=== PATIENT | male | born 1975 | race Caucasian/White ===

== ENCOUNTER 2017-02-22 11:26 | Day surgery (SDC) | payer OTHER ==
[2017-02-14 08:14] VITALS: BMI 46.0
--- NOTE | 2017-02-14 08:55 | PAT Medication Instructions ---
Service Date Feb 14, 2017. Current Home Medication List Acetaminophen (Tylenol), 500 MG PO Q6 PRN for Pain Aspirin (Aspirin Ec), 81 MG PO QAM Furosemide (Lasix), 40 MG PO EVERY OTHER DAY Glipizide (Glucotrol), 5 MG PO BID Ketorolac (Toradol), 10 MG PO BID PRN for HEADACHES Lisinopril (Zestril), 10 MG PO QAM Metformin Hcl (Glucophage), 1,000 MG PO BID Metoprolol Succinate (Toprol Xl), 50 MG PO QAM Potassium Chloride (Klor-Con M20), 20 MEQ PO BID Medication Instructions For Your Scheduled Surgery - Hold the following medications 48 hours prior to surgery: Metformin Hcl (Glucophage), 1,000 MG PO BID - Hold the following medications the morning of surgery: Lisinopril (Zestril), 10 MG PO QAM Glipizide (Glucotrol), 5 MG PO BID Furosemide (Lasix), 40 MG PO EVERY OTHER DAY Potassium Chloride (Klor-Con M20), 20 MEQ PO BID - Take the following medications the morning of surgery with a sip of water OTHERWISE NOTHING TO EAT OR DRINK AFTER MIDNIGHT: Metoprolol Succinate (Toprol Xl), 50 MG PO QAM Ketorolac (Toradol), 10 MG PO BID PRN for HEADACHES (may take if needed up to 4 hours prior to surgery) Acetaminophen (Tylenol), 500 MG PO Q6 PRN for Pain (may take if needed up to 4 hours prior to surgery) Aspirin (Aspirin Ec), 81 MG PO QAM (okay to continue per surgeon) - Take the following medications as scheduled the night before surgery: Glipizide (Glucotrol), 5 MG PO BID Potassium Chloride (Klor-Con M20), 20 MEQ PO BID Ketorolac (Toradol), 10 MG PO BID PRN for HEADACHES Acetaminophen (Tylenol), 500 MG PO Q6 PRN for Pain If you have any questions please call us at [phone] or [phone] or [phone]
[~2017-02-22] VITALS: Ht 172.7 cm; Wt 136.6 kg
[~2017-02-22 11:26] MED LIST: ACET-1256 PO; ASPI81TA28 PO; CEFAZOLIN 3000 MG/65 ML D5W IV SCH; FRS/40 PO; GLIP5TAB3 PO; KETO10TA PO; LACTATED RINGER'S 1000ML 1,000 ML IV SCH; LISI-461 PO; MCRK20 PO; METF-384 PO; METO-217 PO
[2017-02-22 11:50] VITALS: BP 131/90; PULSE 87; TEMP 36.8; O2SAT 95; Ht 172.7 cm; Wt 136.6 kg
[2017-02-22] MEDS ORDERED: LIDOCAINE HCL 1% 20 ML VIAL ONE (12:13)
[2017-02-22] MEDS ORDERED: BACITRACIN OINT 15 GM TUBE ONE (12:14)
[2017-02-22] MEDS ORDERED: BUPIVACAINE 0.5 % 5 MG/1 ML MPF 30ML VIAL ONE (12:14)
[2017-02-22] MEDS ORDERED: DEXAMETHASONE SOD INJ 4 MG/ML VIAL ONE (12:18)
[2017-02-22] MEDS ORDERED: LIDOCAINE HCL 2% 2 ML VIAL (20MG/ML) ONE (12:18)
[2017-02-22] MEDS ORDERED: NEOSTIGMINE METHYLSULFATE 5 MG/5 ML SYR ONE (12:18)
[2017-02-22] MEDS ORDERED: MIDAZOLAM HCL 1 MG/ML 2ML VIAL ONE (12:18)
[2017-02-22] MEDS ORDERED: FENTANYL CITRATE INJ 50 MCG/1 ML 2 ML VIAL ONE ×2 (12:18→14:36)
[2017-02-22] MEDS ORDERED: ROCURONIUM BROMIDE 10 MG/ML 5 ML VIAL ONE ×2 (12:18→13:12)
[2017-02-22] MEDS ORDERED: GLYCOPYRROLATE INJ 0.2 MG/ML VIAL ONE (12:18)
[2017-02-22] MEDS ORDERED: ONDANSETRON INJ 2 MG/ML 2 ML VIAL ONE (12:18)
[2017-02-22] MEDS ORDERED: PROPOFOL IV EMULSION 10 MG/ML 20 ML VIAL IV ONE (12:18)
--- NOTE | 2017-02-22 12:23 | History & Physical Bridge Note ---
H&P Re-Evaluation Bridge Note: I have examined the patient, reviewed the History & Physical and in the interval since the performance of the History & Physical I have noted the following changes of clinical significance: No changes noted
[2017-02-22] MEDS ORDERED: METOPROLOL TARTRATE 50 MG TAB PO SCH (12:30)
[2017-02-22] MEDS ORDERED: ONDANSETRON INJ 2 MG/ML 2 ML VIAL IV PRN ×2 (12:45→15:45)
[2017-02-22] MEDS ORDERED: ATROPINE SULFATE 0.1 MG/ML 5ML SYR IV PRN (12:45)
[2017-02-22] MEDS ORDERED: EpHEDrine SULFATE INJ 50 MG/ML AMP IV PRN (12:45)
[2017-02-22] MEDS ORDERED: KETOROLAC TROMETHAMINE 30 MG/ML VIAL ONE (14:51)
[2017-02-22] MEDS ORDERED: PHENYLEPHRINE 100MCG/ML 5ML SYR ONE (14:51)
[2017-02-22] MEDS ORDERED: D5W AND 1/2NSS + 20MEQ KCL 1,000 ML IV SCH (15:39)
--- NOTE | 2017-02-22 15:39 | [facility] Post Operative Brief Note ---
Immediate Operative Summary Operative Date Feb 22, 2017. Pre-Operative Diagnosis chronic cholecystitis, cholelithiasis, umbilical hernia Post-Operative Diagnosis chronic cholecystitis, cholelithiasis, incarcerated umbilical hernia Procedure(s) Performed laparoscopic cholecystectomy, primary repair umbilical hernia Surgeon DR Franklin Hall Drilling Manager Surgeon(s) surgical technician Estimated Blood Loss 30 cc Findings chronic cholecystitis, incarcerated umbilical hernia Specimens A: Gallbladder Drains none Anesthesia generalo Complication(s) None Disposition Recovery Room / PACU
[2017-02-22] MEDS ORDERED: OXYC-57 PO (15:43)
[2017-02-22] MEDS ORDERED: OXYCODONE/ACETAMINOPHEN 5-325 TAB PO PRN (15:45)
[2017-02-22] MEDS ORDERED: HYDROmorphone INJ 1 MG/ML SYR IV PRN (15:45)
[2017-02-22] MEDS: FENTANYL CITRATE INJ 50 MCG/1 ML 2 ML VIAL IV PRN ×4 (15:47→16:15)
--- NOTE | 2017-02-22 15:47 | Discharge Instructions ---
Discharge Instructions Date of Service Feb 22, 2017. Visit Reason for Visit: Gallstone, Umbilical Hernia Discharge Discharge Diagnosis / Problem: S/P laparoscopic cholecystectomy, open repair umbilical hernia Discharge Goals Goal(s): Decrease discomfort, Improve function Activity Recommendations Activity Limitations: per Instructions/Follow-up section Lifting Limitations: no more than 25 pounds Exercise/Sports Limitations: gradually increase as tolerated May Resume Sexual Activity: when tolerated Shower/Bathe: may shower/bathe in 3 days Driving or Machine Use: resume 3 days after discharge Anesthesia . Post Anesthesia Instructions: If you have had General Anesthesia or IV Sedation: * Do not drive today. * Resume driving when surgeon permits. * Do not make important decisions or sign legal documents today. * Call surgeon for: 1. Temperature elevations greater than 101 degrees F. 2. Uncontrollable pain. 3. Excessive bleeding. 4. Persistent nausea and vomiting. 5. Medication intolerance (nausea, vomiting or rash). * For nausea and vomiting use only clear liquids such as: tea, soda, bouillon until nausea subsides, then gradually increase diet as tolerated. * If you have any concerns or questions, call your surgeon's office. If physician is unavailable and it is an emergency, call 911 or go to the nearest emergency room. . Instructions / Follow-Up Instructions / Follow-Up keep all dressing for 4 days, he can take a shower on 02/26/2017, no driving while taking pain medicine. Follow up 1 week, Diet Recommendations Recommended Home Diet: resume previous diet Procedures Procedures Performed: laparoscopic cholecystectomy, primary repair umbilical hernia Pending Studies Studies pending at discharge: no Medical Emergencies . Who to Call and When: Medical Emergencies: If at any time you feel your situation is an emergency, please call 911 immediately. . Non-Emergent Contact Non-Emergency issues call your: Surgeon Call Non-Emergent contact if: you have a fever, temperature is above 100.5, your pain is not controlled, your pain is worsening, wound has increased drainage, wound has increased redness . . "Provider Documentation" section prepared by Franklin Hall.
--- NOTE | 2017-02-22 16:37 | OPERATIVE REPORT ---
DATE OF OPERATION: 02/22/2017 PREOPERATIVE DIAGNOSES: Chronic cholecystitis, cholelithiasis and umbilical hernia. POSTOPERATIVE DIAGNOSES: Chronic cholecystitis, cholelithiasis and incarcerated umbilical hernia. OPERATION: Laparoscopic cholecystectomy, open repair of umbilical hernia. SURGEON: Franklin Hall M.D. HYDROGEN POWER PLANT ENGINEER: civil geotechnical engineer. FINDINGS: Chronic cholecystitis, incarcerated umbilical hernia. COMPLICATIONS: None. IV FLUIDS: 1700. ESTIMATED BLOOD LOSS: About 30 mL. COMPLICATIONS: None. INDICATIONS FOR THE PROCEDURE: This is a 41-year-old gentleman who presented with symptomatic cholelithiasis and symptomatic umbilical hernia. The patient will be required to do laparoscopic cholecystectomy and open repair of umbilical hernia, possible mesh. I did talk to the patient and patient's father about the benefit and risk alternate procedure. I indicated the risks may include but not limited such as bleeding, infection, injury to common bile duct, injury to bowel, may need ERCP, myocardial infarction, DVT, stroke and even , hernia recurrence, may need more procedure, they understands and they signed informed consent and I answered all questions. DETAILS OF PROCEDURE: We brought the patient to the OR, put the patient in the supine position. The patient received SCDs on bilateral legs to prevent DVT. Also, the patient received 2 grams Ancef IV for prophylactic antibiotic. The patient received general anesthesia without difficulty. The abdomen was prepped and draped in routine sterile fashion. After a timeout, I injected local anesthesia just above umbilical by using 1% lidocaine mixed with 0.25% Marcaine, then I made a transverse incision just above umbilical, opened fascia and opened peritoneum under direct vision. I put a Kaylah trocar in, connected to CO2 to create pneumoperitoneum. Flow rate is 6 liters per minute. Pressure not more than 14 mmHg. Once we got a nice pneumoperitoneum, we put a 10 mm camera in, looked around the abdomen, shows no more findings on the stomach; small bowel, large bowel and omental coverings of the gallbladder showing chronic cholecystitis, gallbladder wall had a thickening edema. Also, the patient had umbilical hernia. Then, we put another 3.5 mm trocar on the right upper quadrant. Once all trocars in, I put grasper in to hold the base of the gallbladder, put direction to the diaphragm and then we used another grasper to peel out all the omentum covers the gallbladder. Again chronic cholecystitis with gallbladder wall thickening, edema and then we put another grasper to hold the pouch over the gallbladder, put direction to the latter exposing triangle of Calot. The cystic duct was identified and mobilized then I put two 5 mm metal clips on both proximal cystic duct, one on the distal cystic duct and then used a scissor for transection of the cystic duct. Then the cystic artery was identified and mobilized. I put two 5 mm metal clips on the proximal cystic artery and one on the distal cystic artery. Then I used a scissors to transect the cystic artery. Rechecked, no active bleeding, no bile leak. Then I used Bovie to take down the gallbladder from the liver bed without difficulty. Rechecked, no active bleeding, no leak, and now we used the same umbilical incision and mobilized the umbilical hernia. Then we removed the gallbladder through the catch bag and then we reinserted Kaylah trocar in, connected to CO2 to create pneumoperitoneum. Again rechecked, no active bleeding, no bile leak from the liver bed and removed all trocars under direct vision. No active bleeding from trocar sites. At this moment, we removed all trocars. Pneumoperitoneum was released. Then I mobilized umbilical hernia showing incarcerated umbilical hernia and then we completely reduced the hernia sac back to the abdominal cavity, showing the hernia sac was about 2 x 2 cm. Then I used #1 Ethibond [id number] x3 to close the umbilical hernia. Rechecked and no more hernia and also we closed the incision, fascial layer by using #1 Vicryl [id number] x2, closed subcutaneous layer by using 2-0 Vicryl, closed skin by using 4-0 Vicryl, another 3.5 mm trocar site closed skin by using 4-0 Vicryl. Then we put the dressing on. The patient tolerated the procedure well. All the instruments, needle and sponge count correct x2 at the end of case. The specimen sent to pathology. The patient transferred to recovery room in stable condition. After the procedure, I did talk to the patient's family member about OR finding and procedure we did, they understand. Also, I gave the patient and to the patient's family the postop care instructions. I attest to the content of the Intraoperative Record and any orders documented therein. Any exceptions are noted below. RODNEY
[2017-02-22 16:40] VITALS: BP 123/76; PULSE 95; TEMP 36.7; O2SAT 96
--- NOTE | 2017-02-22 16:49 | Anesthesiology Progress Note ---
Anesthesia Post Op Note Date & Time Feb 22, 2017 at 16:48 Vital Signs Pain Intensity: 2 Vital Signs Past 12 Hours Date Time Temp Pulse Resp B/P Pulse Ox O2 Delivery O2 Flow Rate FiO2 02/22/17 16:30 36.8 75 16 129/85 94 Room Air 02/22/17 16:20 75 16 123/83 97 Room Air 02/22/17 16:10 83 16 140/94 99 Room Air 02/22/17 16:00 79 16 144/98 99 Mask 10 02/22/17 15:50 80 16 137/98 99 Mask 10 02/22/17 15:43 37.0 80 16 134/91 98 Mask 10 02/22/17 11:50 36.8 87 18 131/90 95 Room Air Notes Mental Status: alert / awake / arousable, participated in evaluation Pt Amnestic to Procedure: Yes Nausea / Vomiting: adequately controlled Pain: adequately controlled Airway Patency, RR, SpO2: stable & adequate BP & HR: stable & adequate Hydration State: stable & adequate Anesthetic Complications: no major complications apparent
[2017-02-22 17:10] VITALS: BP 130/78; PULSE 88; O2SAT 95
[2017-02-22] MEDS ORDERED: OXYCODONE/ACETAMINOPHEN 5-325 TAB ONE (17:19)
[2017-02-22 17:35] VITALS: BP 133/82; PULSE 86; TEMP 36.7; O2SAT 95
[2017-02-23] MEDS ORDERED: CEFAZOLIN IV 2,000 MG/60 ML D5W IV ONE (06:00)
== END 2017-02-22 17:40 | disposition home or self-care (01) ==
LOC: C.ACU 11:26
PROVIDERS: ATTEND Surgery
DX: K80.11 Calculus of gallbladder with chronic cholecystitis with obstruction (principal); K42.0 Umbilical hernia with obstruction, without gangrene; I50.30 Unspecified diastolic (congestive) heart failure; I10 Essential (primary) hypertension; I42.9 Cardiomyopathy, unspecified; G47.9 Sleep disorder, unspecified; K80.20 Calculus of gallbladder without cholecystitis without obstruction; K44.9 Diaphragmatic hernia without obstruction or gangrene; E11.9 Type 2 diabetes mellitus without complications

== ENCOUNTER → 2017-03-26 | Outpatient (CLI) | payer OTHER ==
[~2017-03-26] MED LIST changes: -CEFAZOLIN 3000 MG/65 ML D5W IV SCH; -LACTATED RINGER'S 1000ML 1,000 ML IV SCH
--- NOTE | 2017-03-27 06:42 | SPLIT NIGHT TECHNICIAN REPORT ---
[facility] Split Night Polysomnogram - Cashier Clerk Report Study date: 03/26/2017 Referring Physician: Jordi KHAN M.D. Name: JUDI SORIA Cashier Clerk: LOPEZ Cox. Date of : 1975 Height: 41 years, Height 5' 7" Sex: Male Weight: 289 lbs Age: 41 Neck Circum: 17.25 inches BMI: Medications: 45.26 TYLENOL 325 MG, ASPIRIN 81 MG, LIPITOR 80 MG, COREG 3.125 MG, GLUCOTROL 5 MG, Patient History PATIENT HAS HISTORY OF EXCESSIVE DAYTIME SLEEPINESS, FATIGUE, AND DIFFICULY FALLING ASLEEP. HE GENERALLY ONLY SLEEPS A FEW HOURS A NIGHT. HE IS HERE TODAY FOR AN EVALUATION OF SERENITY. ESS = 14 RM 4 Parameters Monitored NPSG: E1-M2, E2-M1, Fp1-M2, Fp2-M1, F3-M2, F4-M2, F4-M1, C3-M2, C4-M2, C4-M1, O1-M2, O2-M2, O2-M1, T3-M2, T4-M1, P3-M2, P4-M1, CHIN1, CHIN2, HR, EKG, Legs, PFLOW, SNOR, FLOW, CFLOW, Tidal Volume, THOR, ABDO, SpO2, PLTH, CPRESS, ETCO2 Wave, ETCO2, pH SLEEP SUMMARY DATA DIAGNOSTIC TREATMENT Lights Out: 9:40:50 PM 12:53:20 AM Lights On: 12:45:20 AM 5:28:20 AM Total Recording Time (TRT): 185.0 min. 275.5 min. Total Sleep Time (TST): 177.0 min. 268.0 min. NREM Time: 166.5 min. 227.5 min. REM Time: 10.5 min. 40.5 min. Sleep Period Time (SPT): 182.0 min. 274.5 min. Sleep Efficiency (SE): 96 % 97 % Sleep Latency: 2.5 min. 0.5 min. Arousal Index: 44.4 5.6 PAP Treatment Levels: 4, 6, 8, 9, 10, 11, 12, 13, 14 * Optimal Pressure(s) SLEEP STAGING DATA DIAGNOSTIC TREATMENT Duration (min) TST % Duration (min) TST % Stage Wake: 7.5 min. -- 7.0 min. -- WASO: 5.0 min. -- 6.5 min. -- NREM: 166.5 min. 94 % 227.5 min. 85 % Stage N1: 6.0 min. 3 % 10.0 min. 4 % Stage N2: 160.5 min. 91 % 183.5 min. 68 % Stage N3: 0.0 min. 0 % 34.0 min. 13 % REM: 10.5 min. 6 % 40.5 min. 15 % POSITIONAL DATA Event Count Index Event Count Index Supine: 167 76.0 36 11.7 Supine NREM: 167 76.0 25 10.3 Supine REM: N/A N/A 11 17 Non-Supine: 8 10.6 5 3.6 Non-Supine NREM: 6 10.4 5 3.7 Non-Supine REM: 2 11.4 0 0.0 AROUSAL SUMMARY DATA: Event Count Index Event Count Index Apnea Arousals: 69 42.4 6 3.4 Hypopnea Arousals: 14 4.7 2 0.4 Snore Arousals: 10 3.4 3 0.7 PLM Arousals: 0 0.0 0 0.0 Non-Specific Arousals: 29 9.8 9 2.0 Total Arousals: 131 44.4 25 5.6 MYOCLONUS (PLM) Event Count Index Event Count Index PLM: 17 5.8 4 0.9 PLM AROUSAL: 0 0.0 0 0.0 PLM W/O AROUSAL 17 5.8 4 0.9 PLM W/RESP EVENT 2 0.0 0 0.0 MYOCLONUS (PLM) Event Count Index Event Count Index LM: 10 34.9 43 9.6 LM AROUSAL: 10 3.4 5 1.1 LM W/O AROUSAL LM W/RESP EVENT LM NON SPECIFIC 55 18.6 40 9.0 HEART RATE DATA DIAGNOSTIC TREATMENT Sleep (bpm): 87 83 REM (bpm): 94 94 NREM (bpm): 88 94 Tachycardia Count: 0 0 Tachycardia Duration: 0.00 0 Bradycardia Count: 0 0 Bradycardia Duration: 0.00 0 DIAGNOSTIC PORTION TREATMENT PORTION RESPIRATORY DATA Event Count Index Event Count Index AHI: -- 59.3 -- 9.2 RDI: -- 59.3 -- 9 Obstructive Apnea: 118 40.0 5 1.1 Central Apnea: 1 0.3 8 1.8 Mixed Apnea: 6 2.0 2 0.4 Hypopnea: 50 16.9 26 5.8 RERA: 0 0.0 0 0.0 Total Apneas: 125 42.4 15 3.4 RESPIRATORY DATA REM NREM SLEEP REM NREM SLEEP Supine Position: Obstructive Apneas: N/A 118 118 0 5 5 Central Apneas: N/A 1 1 1 3 4 Mixed Apneas: N/A 6 6 0 2 2 Hypopneas: N/A 42 42 10 15 25 RERA N/A 0 0 0 0 0 Total Supine Events: N/A 167 167 11 25 36 Supine AHI: N/A 76.0 76.0 17 10.3 11.7 Supine RDI: N/A 76.0 76.0 17.1 10.3 11.7 REM NREM SLEEP REM NREM SLEEP Non-Supine Position: Obstructive Apneas: 0 0 0 0 0 0 Central Apneas: 0 0 0 0 4 4 Mixed Apneas: 0 0 0 0 0 0 Hypopneas: 2 6 8 0 1 1 RERA 0 0 0 0 0 0 Total Supine Events: 2 6 8 0 5 5 Supine AHI: 11.4 10.4 10.6 0.0 3.7 3.6 Supine RDI: 11.4 10.4 10.6 0.0 3.7 3.6 OXYGEN DESTAURATION DATA: Event Count Index Event Count Index REM Desaturations: 2 11.4 9 13.3 NREM Desaturations: 173 62.3 32 8.4 SNORE DATA DIAGNOSTIC TREATMENT Snore Time: 15.7 12:53:50 AM Snore TST%: 4 3 Snore Arousal Count: 10 3 Snore Arousal Index: 3.4 0.7 Desaturation Event Summary: Minimum %SpO2 Event Count Mean/Min/Max Duration(sec.) Desaturation Index % Time In Bed > 90 210 27.5 / 4.3 / 74.4 34.0 80.6 86 - 90 22 19.3 / 4.0 / 53.5 36.3 7.9 81 - 85 1 33.0 / 33.0 / 33.0 3.2 4.1 76 - 80 0 N/A 0.0 3.3 71 - 75 0 N/A 0.0 2.7 66 - 70 0 N/A 0.0 1.2 61 - 65 0 N/A 0.0 0.1 56 - 60 0 N/A 0.0 0.0 51 - 55 0 N/A 0.0 0.0 < 50 0 N/A 0.0 0.0 OXYGEN SATURATION DATA DIAGNOSTIC TREATMENT SpO2 Mean Sleep: 89 % 94 % SpO2 Mean REM: 94 % 94 % SpO2 Mean NREM: 88 % 94 % SpO2 Minimum Sleep: 63 % 74 % SpO2 Minimum REM: 90 % 83 % SpO2 Minimum NREM: 63 % 74 % Time Below 90% (TST): 68.5 9.9 Time Below 88% (TST): 55.9 6.4 Total REM NREM Awake <50% 0.0 min. 0.0 min. 0.0 min. 0.0 min. 51 - 60% 0.0 min. 0.0 min. 0.0 min. 0.0 min. 61 - 70% 6.3 min. 0.0 min. 6.3 min. 0.0 min. 71 - 80% 27.5 min. 0.0 min. 27.1 min. 0.5 min. 81 - 90% 55.3 min. 1.2 min. 52.7 min. 1.5 min. 91 - 100% 370.1 min. 49.8 min. 307.8 min. 12.5 min. Average 92 94 92 94 Minimum SpO2 63 83 63 69 Desaturation Event Index 29.0 12.9 31.2 33.1 # Desat. Events below 89% 175 2 170 3 Time(%) with Saturation below 89% 15.4 0.0 15.1 0.3 Time(min.) with Saturation below 89% 70.9 0.2 69.6 1.2 Recording Cashier Clerk Comments: Mr. Soria slept in the right, left and supine positions. No cardiac arrhythmia noted. Leg movements noted. No bruxism noted. Snoring was noted and scored as a 3 on a scale of 1 through 5. (0=no snoring, 5=snoring loud enough to be heard through a closed door or down the dyer way) At 12:43 am, Mr. Soria has met specific Split-Night criteria during the diagnostic portion of this study. CPAP was initiated at +4 CMH2O and up-titrated to an optimal level of +12 CMH2O, which nearly eliminated all respiratory events and snoring. A [employer] Simplus full face size medium mask was used during titration Mr. Soria awoke to use the restroom 0 times during the night. Mr. Soria stated I slept as well as I do when I am in my own bed. The final report will be interpreted and signed by a sleep physician. The completed physician report will then be placed in the patient medical record. Therapy Event: Therapy (cm H20) 0 4 6 8 9 10 11 12 13 14 Total Time at Pressure (min.) 184.5 5.0 4.9 5.9 6.9 7.3 145.5 63.4 17.1 19.0 TST at Pressure (min.) 177.0 4.5 4.9 5.9 6.9 7.3 144.0 61.9 16.6 16.0 # Periods 1 1 1 1 1 1 1 1 1 1 Sleep Onset (min.) 2.5 0.5 0.0 0.0 0.0 0.0 0.0 0.0 0.0 0.0 REM Onset (min.) 153.0 N/A N/A N/A N/A N/A 30.1 N/A 0.0 0.4 Sleep Efficiency % 95 90 100 100 100 100 99 97 97 84 Wakefulness (%) 4.1 10.0 0.0 0.0 0.0 0.0 1.0 2.4 2.9 15.8 Wakefulness (min.) 7.5 0.5 0.0 0.0 0.0 0.0 1.5 1.5 0.5 3.0 NREM 1 (%) 3.3 30.1 0.0 0.0 0.0 0.0 1.7 2.4 6.4 17.9 NREM 1 (min.) 6.0 1.5 0.0 0.0 0.0 0.0 2.5 1.5 1.1 3.4 NREM 2 (%) 87.0 59.8 100.0 100.0 100.0 45.9 63.6 95.3 8.8 26.7 NREM 2 (min.) 160.5 3.0 4.9 5.9 6.9 3.3 92.5 60.4 1.5 5.1 NREM 3 (%) 0.0 0.0 0.0 0.0 0.0 54.1 20.7 0.0 0.0 0.0 NREM 3 (min.) 0.0 0.0 0.0 0.0 0.0 3.9 30.1 0.0 0.0 0.0 REM (%) 5.7 0.0 0.0 0.0 0.0 0.0 13.0 0.0 81.9 39.5 REM (min.) 10.5 0.0 0.0 0.0 0.0 0.0 19.0 0.0 14.0 7.5 # Arousals 131 5 3 1 0 1 6 2 2 5 Arousal Index 44.4 67.0 37.0 10.2 0.0 8.2 2.5 1.9 7.2 18.8 # Snore 533 19 28 53 59 44 20 5 27 12 Snore Index 180.7 254.6 345.8 538.6 511.6 362.9 8.3 4.8 97.4 45.1 AHI 59.3 53.6 86.4 61.0 17.3 24.7 2.5 0.0 21.7 26.3 AHI Supine 76.0 53.6 86.4 61.0 17.3 24.7 2.8 0.0 21.7 13.2 AHI Non-Supine 10.6 N/A N/A N/A N/A N/A 1.7 0.0 N/A 103.6 NREM AHI 62.3 53.6 86.4 61.0 17.3 24.7 0.5 0.0 0.0 49.6 REM AHI 11.4 N/A N/A N/A N/A N/A 15.8 N/A 25.7 0.0 RDI 59.3 53.6 86.4 61.0 17.3 24.7 2.5 0.0 21.7 26.3 # Obstructive 118 1 4 0 0 0 0 0 0 0 # Central Ap 1 1 0 0 0 0 1 0 0 6 # Mixed 6 2 0 0 0 0 0 0 0 0 # Hypopneas 50 0 3 6 2 3 5 0 6 1 RERAS 0 0 0 0 0 0 0 0 0 0 Total Respiratory Events 175 4 7 6 2 3 6 0 6 7 Time Below SpO2 89.00% (min.) 62.0 1.5 2.4 2.3 0.4 0.6 0.3 0.1 0.0 0.2 Mean NREM SpO2 (%) 88 90 88 90 93 93 94 94 96 95 Mean REM SpO2 (%) 94 N/A N/A N/A N/A N/A 94 N/A 95 95 Mean Sleep SpO2 (%) 89 90 88 90 93 93 94 94 95 95 Min NREM SpO2 (%) 63 75 74 81 85 83 85 88 94 85 Min REM SpO2 (%) 90 N/A N/A N/A N/A N/A 83 N/A 90 94 Position Supine (min.) 131.9 4.5 4.9 5.9 6.9 7.3 108.5 15.8 16.6 13.7 Position Non-supine (min.) 45.1 0.0 0.0 0.0 0.0 0.0 35.5 46.1 0.0 2.3 LM Index Sleep 40.7 0.0 0.0 10.2 26.0 16.5 11.7 1.0 28.9 15.0 LM Index NREM 42.9 0.0 0.0 10.2 26.0 16.5 11.5 1.0 23.1 14.2 LM Index REM 5.7 N/A N/A N/A N/A N/A 12.7 N/A 29.9 16.0 Mean Heart Rate (bpm) 87 82 83 83 82 84 85 81 81 80 Min Heart Rate (bpm) 68 74 70 71 74 75 66 68 65 69
--- NOTE | 2017-04-05 15:57 | POLYSOMNOGRAPH REPORT ---
REFERRING PERSON: Dr. Ankur Odell. BOILER CONTROL TECHNICIAN: Mike Johnson. Mr. Soria is a 41-year-old male with excessive daytime sleepiness, fatigue and difficulty falling asleep. He generally only sleeps a few hours per night. He is here to rule out sleep apnea. [place] sleepiness scale score on the evening of this study is 14. BMI is 45.26. Following the technical and digital specifications of the [employer] [employer] (AASM) a standard diagnostic polysomnogram was performed monitoring EEG, EOG, EMG (chin and leg deviations), oxygen saturation, body position, digital video, respiratory effort and airflow. The sleep Stage and event scoring was based on the AASM Manual for the Scoring of Sleep and Associated Events 2007 edition. Apneas are defined as a drop in the peak thermal sensor excursion by >90% of baseline for at least 10 seconds. Hypopneas were scored using the 4% oxygen desaturation rule (4A-Medicare) and a decrease in the nasal pressure excursions by >30% of baseline for at least 10 seconds. Respiratory effort-related arousal (RERA's) is defined as a sequence of breaths lasting at least 10 seconds characterized by increasing respiratory effort or flattening of the nasal pressure waveform leading to an arousal from sleep when the sequence of breaths does not meet criteria for an apnea or hypopnea. Apnea Hypopnea index (AHI) is defined as the number of apneas and hypopneas occurring in an hour of sleep. Respiratory disturbance index (RDI) is defined as the number of apneas, hypopneas, and RERA's occurring in an hour of sleep. Mr. Soria did qualify for a split night sleep study. He was observed for 177 minutes of sleep. During that time, he had 3% N1 sleep, 91% N2 sleep and 6% REM sleep. There were 131 arousals from sleep. Twenty nine of those arousals were nonspecific, 10 were due to snore and the remaining 83 were due to respiratory events. There were 17 periodic limb movements noted during observation, none of which resulted in arousals. Mean saturation during sleep during the diagnostic part of this test was 89 with desaturations with an episode of non-REM sleep to 63%. There were 118 obstructive apneas, 1 central apnea, and 6 mixed apneas during observation. Additionally, there were 50 hypopnea. Apnea-hypopnea index prior to treatment was 59.3 consistent with severe sleep apnea. Therefore, at 12:45 a.m., this patient was started on CPAP therapy. He chose a medium [employer] Simplus full facemask for his titration. He was titrated from a CPAP pressure of 4 to a CPAP pressure of 14 over the remainder of the night. Increasing pressures were needed to prevent apneas, hypopneas and arousals. He was observed on a pressure of 12 for 61.9 minutes of sleep time. There was no REM sleep noted on this pressure. AHI and RDI on this pressure were both 0. The patient pressures were increased after a pressure of 12 when this patient did have REM sleep and some hypopneas did return. There was 1 hypopneic event during 16 minutes of observation on a pressure of 14, but 6 central apneas were noted. IMPRESSION AND PLAN: Successful split night sleep study in this patient with known severe sleep apnea. I would recommend that this patient be started on CPAP at a pressure of 12. A download from his machine can be reviewed in 1 month both to check compliance as well as AHI and further pressure adjustments can occur at that time. This patient may need higher pressures than 12, but it appears that he developed some central apneas on higher pressures, so continued titration can occur at home to determine optimal pressure.
== END | disposition home or self-care (01) ==
LOC: C.NEUR 20:00
PROVIDERS: ATTEND Family Medicine
DX: G47.10 Hypersomnia, unspecified (principal); R06.81 Apnea, not elsewhere classified; R06.83 Snoring

== ENCOUNTER 2017-12-26 17:56 | Emergency (ER) | payer OTHER ==
[~2017-12-26] VITALS: Ht 167.6 cm; Wt 140.0 kg
[2017-12-26 18:01] VITALS: Ht 167.6 cm; Wt 140.0 kg
[2017-12-26] MEDS ORDERED: CARV3.122 PO (18:25)
[2017-12-26] MEDS ORDERED: TACR0.1O TOP (18:25)
[2017-12-26] MEDS ORDERED: FURO-85 PO (18:25)
[2017-12-26] MEDS ORDERED: ATOR-26 PO (18:25)
[2017-12-26 18:40] LABS: BASO % 0.5 %; BASO ABS # 0.04 K/uL (0-0.2); EOS % 2.3 %; HEMOGLOBIN 15.5 g/dL (14.0-18.0); IG# 0.04 K/uL (0.00-0.02); LYMPH ABS # 1.05 K/uL (1.2-3.4); MEAN CELL VOLUME 91.1 fL (80-100); MEAN CORPUSCULAR HEMOGLOBIN 31.4 pg (25-34); MEAN CORPUSCULAR HGB CONC 34.4 g/dl (32-36); MEAN PLATELET VOLUME 9.5 fL (7.4-10.4); MONO % 6.5 %; MONO ABS # 0.57 K/uL (0.11-0.59); NEUT % 78.2 %; NEUT ABS # 6.82 K/uL (1.4-6.5); PLATELET COUNT 243 K/uL (130-400); RED CELL DISTRIBUTION WIDTH CV 13.1 % (11.5-14.5); RED CELL DISTRIBUTION WIDTH SD 43.8 fL (36.4-46.3); WHITE BLOOD COUNT 8.72 K/uL (4.8-10.8)
[2017-12-26] MEDS ORDERED: ACETAMINOPHEN 325 MG TAB PO STA (18:41)
[2017-12-26] MEDS ORDERED: ALBUTEROL HFA 8 GM INHALER INH ONE (18:45)
--- NOTE | 2017-12-26 18:47 | EMERGENCY ROOM VISIT NOTE ---
History Report prepared by Raciel: Pedro Campoverde Under the Supervision of: Dr. Jaylen Ruby M.D. First contact with patient: 18:06 Chief Complaint: FLU LIKE SX Stated Complaint: ACHEY EAR, HIGH TEMP History of Present Illness The patient is a 42 year old male who presents to the Emergency Room with complaints of a progressively worsening productive cough that began one day prior to this visit. He is also complaining of a sore throat, nasal congestion/ runny nose, and body aches. He has not experienced any nausea/vomiting, abdominal pain, or diarrhea. He does note having some sick contacts with similar symptoms. He has not been taking any over the counter medications for his symptoms. Upon presentation to the department the patient was febrile. The patient has an extensive medical history including; congestive heart failure with aortic valve replacement (tissue valve), diabetes mellitus, hypertension, and GERD. 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 A total of 10 systems reviewed and were otherwise negative. 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 (4) DM type 2 (diabetes mellitus, type 2) (5) GERD (gastroesophageal reflux disease) (6) Hypertension (7) Influenza A (8) Morbid obesity with BMI of 45.0-49.9, adult (9) Pulmonary hypertension (10) Sleep disorder (11) Valvular heart disease Family History No pertinent family history Social History Smoking Status: Never Smoker Drug Use: none Marital Status: Housing Status: lives with family Occupation Status: employed Current/Historical Medications Scheduled Aspirin (Aspirin Ec), 81 MG PO QAM Atorvastatin (Lipitor), 80 MG PO DAILY Carvedilol (Coreg), 3.125 MG PO BID Furosemide (Lasix), 20 MG PO DAILY Glipizide (Glucotrol), 5 MG PO BID Lisinopril (Zestril), 10 MG PO QAM Metoprolol Succinate (Toprol Xl), 50 MG PO BID Oseltamivir (Tamiflu), 75 MG PO BID Tacrolimus (Topical) (Protopic), 1 APPLN TOP UD Allergies Coded Allergies: No Known Allergies (Unverified , 12/26/17) Physical Exam Vital Signs Date Time Temp Pulse Resp B/P (MAP) Pulse Ox O2 Delivery O2 Flow Rate FiO2 12/26/17 19:56 38.0 12/26/17 19:55 104 22 95 12/26/17 19:40 108 14 94 12/26/17 19:30 112/72 12/26/17 19:25 111 14 93 12/26/17 19:13 107 12/26/17 19:13 111/77 12/26/17 19:13 111/77 12/26/17 19:10 108 13 95 12/26/17 19:05 108 21 96 Room Air 12/26/17 18:55 113 19 96 12/26/17 18:45 113 18 12/26/17 18:01 38.3 110 20 118/72 96 Room Air Physical Exam GENERAL: Patient is in no acute distress. HEENT: No acute trauma, normocephalic atraumatic, mucous membranes moist, Moderate nasal congestion, no scleral icterus. NECK: No stridor, no adenopathy, no meningismus, trachea is midline. LUNGS: There are diminished breath sounds bilaterally with occasional wheezing bilaterally. There is no respiratory distress, no cough noted. HEART: Tachycardic rate with regular rhythm. No murmurs. ABDOMEN: Soft, nontender, bowel sounds positive, no hernias, no peritonitis. EXTREMITIES: No cyanosis or edema, full range of motion of all the joints without pain or difficulty, no signs for acute trauma. NEUROLOGIC: Oriented x 3, no acute motor or sensory deficits, no focal weakness. SKIN: No rash, no jaundice, no diaphoresis. Medical Decision & Procedures ER Provider Diagnostic Interpretation: Radiology results as stated below per my review and radiologist interpretation: CHEST ONE VIEW PORTABLE HISTORY: cough COMPARISON: Chest 10/08/2016. FINDINGS: The heart is borderline enlarged. There are postoperative changes. No pleural effusions. No pneumothorax. There is perihilar interstitial and vascular thickening. This suggests mild congestive change. No focal lung consolidations. IMPRESSION: Mild central pulmonary vascular congestion without overt edema. Electronically signed by: Raffaele Mallory M.D. 12/26/2017 7:28 PM Dictated Date/Time: 12/26/2017 7:26 PM Laboratory Results 12/26/17 18:20 Red Blood Count 4.94, Mean Corpuscular Volume 91.1, Mean Corpuscular Hemoglobin 31.4, Mean Corpuscular Hemoglobin Concent 34.4, Mean Platelet Volume 9.5, Neutrophils (%) (Auto) 78.2, Lymphocytes (%) (Auto) 12.0, Monocytes (%) (Auto) 6.5, Eosinophils (%) (Auto) 2.3, Basophils (%) (Auto) 0.5, Neutrophils # (Auto) 6.82, Lymphocytes # (Auto) 1.05, Monocytes # (Auto) 0.57, Eosinophils # (Auto) 0.20, Basophils # (Auto) 0.04 12/26/17 18:20 Test 12/26/17 18:20 12/26/17 18:21 White Blood Count 8.72 K/uL (4.8-10.8) Red Blood Count 4.94 M/uL (4.7-6.1) Hemoglobin 15.5 g/dL (14.0-18.0) Hematocrit 45.0 % (42-52) Mean Corpuscular Volume 91.1 fL (80-100) Mean Corpuscular Hemoglobin 31.4 pg (25-34) Mean Corpuscular Hemoglobin Concent 34.4 g/dl (32-36) Platelet Count 243 K/uL (130-400) Mean Platelet Volume 9.5 fL (7.4-10.4) Neutrophils (%) (Auto) 78.2 % Lymphocytes (%) (Auto) 12.0 % Monocytes (%) (Auto) 6.5 % Eosinophils (%) (Auto) 2.3 % Basophils (%) (Auto) 0.5 % Neutrophils # (Auto) 6.82 K/uL (1.4-6.5) Lymphocytes # (Auto) 1.05 K/uL (1.2-3.4) Monocytes # (Auto) 0.57 K/uL (0.11-0.59) Eosinophils # (Auto) 0.20 K/uL (0-0.5) Basophils # (Auto) 0.04 K/uL (0-0.2) RDW Standard Deviation 43.8 fL (36.4-46.3) RDW Coefficient of Variation 13.1 % (11.5-14.5) Immature Granulocyte % (Auto) 0.5 % Immature Granulocyte # (Auto) 0.04 K/uL (0.00-0.02) Anion Gap 10.0 mmol/L (3-11) Est Creatinine Clear Calc Drug Dose 158.1 ml/min Estimated GFR () 127.3 Estimated GFR (Non- 109.8 BUN/Creatinine Ratio 14.4 (10-20) Calcium Level 8.4 mg/dl (8.5-10.1) Influenza Type A Antigen POS for Influ A (NEG) Influenza Type B Antigen Neg for Influ B (NEG) Laboratory results reviewed by me. Medications Administered Medications (Trade) Dose Ordered Sig/Basilia Route Start Time Stop Time Status Last Admin Dose Admin Acetaminophen (Tylenol Tab) 650 mg NOW STAT PO 12/26/17 18:41 12/26/17 18:43 DC 12/26/17 19:06 650 MG Albuterol (Ventolin Hfa Inhaler) 3 puffs NOW ONCE INH 12/26/17 18:45 12/26/17 19:01 DC 12/26/17 19:08 3 PUFFS Oseltamivir Phosphate (Tamiflu Cap) 75 mg NOW STAT PO 12/26/17 19:32 12/26/17 19:33 DC 12/26/17 19:50 75 MG ECG Indication: other (Hx CHF, valve replacement, Cardiac Disease) Rate (beats per minute): 109 Rhythm: sinus tachycardia Findings: other (No ST elevations, no PVCs, no PACs ) Change: Patient's electrocardiogram interpreted by me. ED Course 1828: The patient was reviewed and evaluated by the Resident Physician at this time. 1840: Ordered Tylenol Tab 650 mg PO. 1844: Ordered Albuterol 3 puffs INH. 1853: The patient was evaluated in room B9. A complete history and physical exam was performed. 1931: Ordered Tamiflu Cap 75 mg PO. 1945: Reevaluated the patient. Discussed results and discharge instructions: He verbalized understanding and agreement. The patient is ready for discharge. Medical Decision Differential Diagnosis includes; Influenza, influenza-like illness, pneumonia, sinusitis, dehydration, and bacteremia. There is no leukocytosis or concerning anemia. No significant electrolyte abnormality or kidney failure. Chest film does not show pneumonia or CHF. Influenza testing was positive for influenza A. On exam, the patient was not hypoxic, he was febrile and was wheezing. The patient received albuterol via [facility], oral Tylenol, oral Tamiflu. He looks fairly well, I think he can be discharged home on Tamiflu, albuterol, Motrin and /or Tylenol for fever. He will see his doctor in follow-up. If worsening, he can return. Medication Reconcilliation Current Medication List: was personally reviewed by me Blood Pressure Screening Patient's blood pressure: Normal blood pressure Impression Primary Impression: Influenza A Additional Impression: Fever Scribe Attestation The scribe's documentation has been prepared under my direction and personally reviewed by me in its entirety. I confirm that the note above accurately reflects all work, treatment, procedures, and medical decision making performed by me. Departure Information Dispostion Home / Self-Care Prescriptions Oseltamivir (Tamiflu) 75 Mg Cap 75 MG PO BID for 5 Days, #9 TABS Prov: Yoshi Aguilar MD 12/26/17 Referrals Ira Medellin M.D. (MEDICAL) (PCP) Forms HOME CARE DOCUMENTATION FORM, IMPORTANT VISIT INFORMATION Patient Instructions My [facility] Additional Instructions You came in with cough, fever and were found to be positive for Influenza Please take medication ( Tamiflu, Albuterol ) as prescribed. Use Albuterol Inhaler 2 -3 puffs every 4 hopurs as needed for wheezing or shortness of breath Take Tylenol or Ibuprofen for fever. If you feel worsening f worsening Nausea/vomiting, Shortness of breath or Chest pain, or please return to Emergency Department for evaluation. Problem Qualifiers
--- NOTE | 2017-12-26 18:55 | EMERGENCY ROOM VISIT NOTE ---
History First contact with patient: 18:06 Chief Complaint: FLU LIKE SX Stated Complaint: ACHEY EAR, HIGH TEMP History of Present Illness The patient is a 42 year old male with history of HTN Cardiomyopathy with combined systolic/diastolic Heart failure, Aortic valve disease s/p replacement , Pulmonary HTN, T2DM presenting with 1 day history of acute productive cough, rhinorrhea, sore throat, body ache, lightheadedness. He denies WILKERSON, SOB, Chest pain, palpitation, syncope, LE edema. he does report orthopnea but not acutely. He denies Nausea/vomiting, abdominal pain, diarrhea. Review of Systems Pt denies headache, change in vision, chest pain, shortness of breath, nausea, vomiting, diarrhea, pain with urination, and melena. Past Medical/Surgical History Medical Problems: (1) Cardiomyopathy (2) Cholelithiasis (3) Combined systolic and diastolic heart failure (4) DM type 2 (diabetes mellitus, type 2) (5) GERD (gastroesophageal reflux disease) (6) Hypertension (7) Influenza A (8) Morbid obesity with BMI of 45.0-49.9, adult (9) Pulmonary hypertension (10) Sleep disorder (11) Valvular heart disease Family History No pertinent family history Social History Smoking Status: Never Smoker Drug Use: none Marital Status: Housing Status: lives with family Occupation Status: employed Current/Historical Medications Scheduled Aspirin (Aspirin Ec), 81 MG PO QAM Atorvastatin (Lipitor), 80 MG PO DAILY Carvedilol (Coreg), 3.125 MG PO BID Furosemide (Lasix), 20 MG PO DAILY Glipizide (Glucotrol), 5 MG PO BID Lisinopril (Zestril), 10 MG PO QAM Metoprolol Succinate (Toprol Xl), 50 MG PO BID Oseltamivir (Tamiflu), 75 MG PO BID Tacrolimus (Topical) (Protopic), 1 APPLN TOP UD Scheduled PRN Albuterol Hfa (Ventolin Hfa), 2-4 PUFFS INH Q6H PRN for Wheezing Physical Exam Vital Signs Date Time Temp Pulse Resp B/P (MAP) Pulse Ox O2 Delivery O2 Flow Rate FiO2 12/26/17 19:56 38.0 12/26/17 19:55 104 22 95 12/26/17 19:40 108 14 94 12/26/17 19:30 112/72 12/26/17 19:25 111 14 93 12/26/17 19:13 107 12/26/17 19:13 111/77 12/26/17 19:13 111/77 12/26/17 19:10 108 13 95 12/26/17 19:05 108 21 96 Room Air 12/26/17 18:55 113 19 96 12/26/17 18:45 113 18 12/26/17 18:01 38.3 110 20 118/72 96 Room Air Physical Exam GENERAL: alert, no distress, EYE EXAM: normal conjunctiva, PERRL and EOM's grossly intact OROPHARYNX: no exudate, no erythema, lips, buccal mucosa, and tongue normal and mucous membranes are moist NECK: supple, no nuchal rigidity, no adenopathy, non-tender LUNGS: + scattered wheeze. Normal chest wall mechanics HEART: Systolic murmur, S1 normal and S2 normal ABDOMEN: generalized non-specific tenderness to palpation, no masses, no rebound or guarding. UPPER EXTREMITIES: upper extremities are grossly normal. LOWER EXTREMITIES: No pitting edema. NEURO EXAM: Normal sensorium, cranial nerves II-XII grossly intact, normal speech Medical Decision & Procedures Laboratory Results 12/26/17 18:20 Red Blood Count 4.94, Mean Corpuscular Volume 91.1, Mean Corpuscular Hemoglobin 31.4, Mean Corpuscular Hemoglobin Concent 34.4, Mean Platelet Volume 9.5, Neutrophils (%) (Auto) 78.2, Lymphocytes (%) (Auto) 12.0, Monocytes (%) (Auto) 6.5, Eosinophils (%) (Auto) 2.3, Basophils (%) (Auto) 0.5, Neutrophils # (Auto) 6.82, Lymphocytes # (Auto) 1.05, Monocytes # (Auto) 0.57, Eosinophils # (Auto) 0.20, Basophils # (Auto) 0.04 12/26/17 18:20 Test 12/26/17 18:20 12/26/17 18:21 White Blood Count 8.72 K/uL (4.8-10.8) Red Blood Count 4.94 M/uL (4.7-6.1) Hemoglobin 15.5 g/dL (14.0-18.0) Hematocrit 45.0 % (42-52) Mean Corpuscular Volume 91.1 fL (80-100) Mean Corpuscular Hemoglobin 31.4 pg (25-34) Mean Corpuscular Hemoglobin Concent 34.4 g/dl (32-36) Platelet Count 243 K/uL (130-400) Mean Platelet Volume 9.5 fL (7.4-10.4) Neutrophils (%) (Auto) 78.2 % Lymphocytes (%) (Auto) 12.0 % Monocytes (%) (Auto) 6.5 % Eosinophils (%) (Auto) 2.3 % Basophils (%) (Auto) 0.5 % Neutrophils # (Auto) 6.82 K/uL (1.4-6.5) Lymphocytes # (Auto) 1.05 K/uL (1.2-3.4) Monocytes # (Auto) 0.57 K/uL (0.11-0.59) Eosinophils # (Auto) 0.20 K/uL (0-0.5) Basophils # (Auto) 0.04 K/uL (0-0.2) RDW Standard Deviation 43.8 fL (36.4-46.3) RDW Coefficient of Variation 13.1 % (11.5-14.5) Immature Granulocyte % (Auto) 0.5 % Immature Granulocyte # (Auto) 0.04 K/uL (0.00-0.02) Anion Gap 10.0 mmol/L (3-11) Est Creatinine Clear Calc Drug Dose 158.1 ml/min Estimated GFR () 127.3 Estimated GFR (Non- 109.8 BUN/Creatinine Ratio 14.4 (10-20) Calcium Level 8.4 mg/dl (8.5-10.1) Influenza Type A Antigen POS for Influ A (NEG) Influenza Type B Antigen Neg for Influ B (NEG) Medications Administered Medications (Trade) Dose Ordered Sig/Basilia Route Start Time Stop Time Status Last Admin Dose Admin Acetaminophen (Tylenol Tab) 650 mg NOW STAT PO 12/26/17 18:41 12/26/17 18:43 DC 12/26/17 19:06 650 MG Albuterol (Ventolin Hfa Inhaler) 3 puffs NOW ONCE INH 12/26/17 18:45 12/26/17 19:01 DC 12/26/17 19:08 3 PUFFS Oseltamivir Phosphate (Tamiflu Cap) 75 mg NOW STAT PO 12/26/17 19:32 12/26/17 19:33 DC 12/26/17 19:50 75 MG Medical Decision 42 yo M presenting with HTN, T2DM, Cardiomyopathy with combines systolic/ diastolic HF, valvular disease s/p replacement, SERENITY, 1 day h/o progressive productive cough, rhinorrhea, sore throat presenting febrile at 38.3 , tachycardic on arrival. Differential diagnoses includes but is not limited to Influenza pneumonia, bronchitis, pulmonary embolism, congestive heart failure CBC unremarkable BMP unremarkable Flu swab positive for Influenza A Given Tylenol 650 mg Given 1 dose of Tamiflu 7 5mg Given Albuterol INH x 3 puffs Given positive Flu swab , presentation upper respiratory symptoms and fever, tachycardia. likely secondary to influenza. Patient was started on Tamiflu as indicated above. Arrhythmia was ruled out on EKG showing sinus tachycardia likely associated with fever in the setting of influenza vs dehydration. Due to wheezing identified, Albuterol was given. Upon discharge he was prescribed 5 days of Tamiflu 75 mg BID an Tylenol/Ibuprofen for fever. .Upon reevaluation, the patient is comfortable, stable. I discussed the findings and the treatment plan with the patient. He expresses agreement and understanding. Head Trauma GCS Score: 15 Medication Reconcilliation Current Medication List: was personally reviewed by me Blood Pressure Screening Patient's blood pressure: Normal blood pressure Impression Primary Impression: Influenza A Additional Impressions: Fever Sinus tachycardia Departure Information Dispostion Home / Self-Care Condition GOOD Prescriptions Albuterol Hfa (VENTOLIN HFA) 200 Puffs/12516 Mcg Aers 2-4 PUFFS INH Q6H Y for Wheezing, #1 INHALER Prov: Yoshi Aguilar MD 12/26/17 Oseltamivir (Tamiflu) 75 Mg Cap 75 MG PO BID for 5 Days, #9 TABS Prov: Yoshi Aguilar MD 12/26/17 Referrals Ira Medellin M.D. (MEDICAL) (PCP) Patient Instructions My [facility] Additional Instructions You came in with cough, fever and were found to be positive for Influenza Please take medication ( Tamiflu, Albuterol ) as prescribed. Use Albuterol Inhaler 2 -3 puffs every 4 hours as needed for wheezing or shortness of breath Take Tylenol or Ibuprofen for fever. If you feel worsening worsening Nausea/ vomiting, Shortness of breath or Chest pain, or please return to Emergency Department for evaluation. Resident Tracking Resident Involvement: Resident Care Provided Care Provided: Adult ED Problem Qualifiers
[2017-12-26 19:06] LABS: INFLUENZA B ANTIGEN Neg for Influ B (NEG)
[2017-12-26 19:07] LABS: CALCIUM 8.4 mg/dl (8.5-10.1); CREATININE 0.82 mg/dl (0.60-1.40); POTASSIUM 3.9 mmol/L (3.5-5.1)
[2017-12-26 19:30] VITALS: BP 112/72
--- NOTE | 2017-12-26 19:30 | DIAGNOSTIC IMAGING REPORT ---
CHEST ONE VIEW PORTABLE HISTORY: cough COMPARISON: Chest 10/08/2016. FINDINGS: The heart is borderline enlarged. There are postoperative changes. No pleural effusions. No pneumothorax. There is perihilar interstitial and vascular thickening. This suggests mild congestive change. No focal lung consolidations. IMPRESSION: Mild central pulmonary vascular congestion without overt edema. Electronically signed by: Raffaele Mallory M.D. 12/26/2017 7:28 PM Dictated Date/Time: 12/26/2017 7:26 PM
[2017-12-26] MEDS ORDERED: OSELTAMIVIR PHOSPHATE 75 MG CAP PO STA (19:32)
[2017-12-26] MEDS ORDERED: OSEL75CA12 PO (19:44)
[2017-12-26 19:55] VITALS: PULSE 104; O2SAT 95
[2017-12-26 19:56] VITALS: TEMP 38
[2017-12-26] MEDS ORDERED: VNTHFA/IN INH (21:16)
== END 2017-12-26 19:57 | disposition home or self-care (01) ==
LOC: C.EDB 17:59
DX: J10.1 Influenza due to other identified influenza virus with other respiratory manifestations (principal); R50.9 Fever, unspecified; R00.0 Tachycardia, unspecified; I11.0 Hypertensive heart disease with heart failure; I42.9 Cardiomyopathy, unspecified; G47.33 Obstructive sleep apnea (adult) (pediatric); I50.40 Unspecified combined systolic (congestive) and diastolic (congestive) heart failure; K21.9 Gastro-esophageal reflux disease without esophagitis; E11.9 Type 2 diabetes mellitus without complications; E66.01 Morbid (severe) obesity due to excess calories; I38 Endocarditis, valve unspecified; Z79.82 Long term (current) use of aspirin; Z79.899 Other long term (current) drug therapy

== ENCOUNTER 2019-07-18 21:45 | Inpatient (IN) ==
[2019-07-18 22:18] LABS: Basophils # (auto) 0.05 K/uL (0-0.2); Basophils % (auto) 0.6 %; Eosinophils # (auto) 0.23 K/uL (0-0.5); Eosinophils % (auto) 2.7 %; Hematocrit (blood only) 48.7 % (42-52); Hemoglobin 17.2 g/dL (14.0-18.0); Immature Granulocytes # (auto) 0.07 K/uL (0.00-0.02); Immature Granulocytes % (auto) 0.8 %; Lymphocytes # (auto) 2.66 K/uL (1.2-3.4); Lymphocytes % (auto) 30.8 %; Mean Corpuscular Hemoglobin 32.8 pg (25-34); Mean Corpuscular Hgb Conc 35.3 g/dL (32-36); Mean Corpuscular Volume 92.8 fL (80-100); Mean Platelet Volume 9.5 fL (7.4-10.4); Monocytes # (auto) 0.56 K/uL (0.11-0.59); Monocytes % (auto) 6.5 %; Neutrophils # (auto) 5.08 K/uL (1.4-6.5); Neutrophils % (auto) 58.6 %; Platelet Count 295 K/uL (130-400); RDW Standard Deviation 43.6 fL (36.4-46.3); Red Blood Count 5.25 M/uL (4.7-6.1); White Blood Count 8.65 K/uL (4.8-10.8)
[2019-07-18 22:21] LABS: iSTAT Creatinine 0.7 mg/dl (0.6-1.3); iSTAT Ionized Calcium 1.14 mmol/l (1.12-1.32); iSTAT Potassium 3.7 mEq/L (3.3-5.0)
[2019-07-18 22:26] LABS: INR 0.9 (0.9-1.1); Prothrombin Time 9.7 Seconds (9.0-12.0)
[2019-07-18 22:36] LABS: Albumin Level 3.1 gm/dl (3.4-5.0); BUN Creatinine Ratio 18.7 (10-20); Calcium 8.7 mg/dl (8.5-10.1); Creatinine Clr Calc Pharmacy 193.4 ml/min; Est GFR (African American) 131.1; Est GFR (Non-African American) 113.1; Potassium 3.7 mmol/L (3.5-5.1)
[2019-07-18 22:39] LABS: Acetaminophen < 2 ug/ml (10-30); Salicylate < 1.7 mg/dl (2.8-20)
[2019-07-18 22:45] LABS: Albumin Globulin Ratio 0.8 (0.9-2); Bilirubin,Total 0.3 mg/dl (0.2-1); Globulin 3.9 gm/dl (2.5-4.0); Troponin I 0.126 ng/ml (0-0.045)
[2019-07-18] MEDS ORDERED: NITROGLYCERIN SL 0.4 MG/TAB TAB ONE (22:51)
[2019-07-18] MEDS ORDERED: ASPIRIN CHEW 324 MG ONE (22:56)
[2019-07-18] MEDS ORDERED: ASPIRIN 81 MG CHEW PO STA (22:57)
[2019-07-18] MEDS ORDERED: SODIUM CHLORIDE 0.9% 1000ML 500 ML IV ONE (22:58)
--- NOTE | 2019-07-18 23:11 | XRay Report ---
XR chest 1V portable HISTORY: Overdose. Assess for aspiration. COMPARISON: Chest 12/26/2017. FINDINGS: There are low lung volumes. There are poststernotomy changes. Mild cardiomegaly, unchanged. There is diffuse interstitial and vascular thickening suggestive of mild congestive change. This is similar to the prior study. No new focal lung consolidations to suggest pneumonia. No pneumothorax. N o pleural effusions. IMPRESSION: Cardiomegaly with mild congestive change. This is similar to the prior study. No new focal lung conso lidation. Electronically signed by: Raffaele Mallory M.D. 07/18/2019 11:09 PM
[2019-07-18 23:13] LABS: Magnesium 2.1 mg/dl (1.8-2.4)
[2019-07-18 23:37] LABS: Thyroid Stimulating Hormone 2.06 uIu/ml (0.300-4.500)
--- NOTE | 2019-07-18 23:45 | History & Physical Report ---
Date of Service July 18, 2019 Assessment & Plan (1) ACS (acute coronary syndrome): NSTEMI With musculoskeletal component with direct reproducibility (chronic poststernotomy pain as per patient) Intentional benzo overdose Suboptimal depression, possible suicidality hx chronic diastolic heart failure (EF 50 to 55%, TTE 2018), volume status at baseline non-ischemic cardiomyopathy as per records hypertension, slightly elevated upon arrival at the ER aortic stenosis/aortic regurgitation status post bioprosthetic AVR (2015) DM2 on oral meds, BSG currently elevated, well-controlled as of recent outpatient hemoglobin A1c of 6.8 last October 2018 ongoing tobacco abuse SERENITY on CPAP PCU Continue antiplatelet Rx, beta-betty, statin Rx; IV heparin Trend troponin TTE, Cardiology consult RE ACS Follow Toxicology recommendations suicide precautions for now Psych consult RE suboptimal depression, possible suicidality Basal insulin, ISS BG goal 1 40-1 80, update hemoglobin A1c DVT prophylaxis. IV heparin Full code History of Present Illness Chief Complaint: Drug overdose Primary Care Provider: Gabriela Ayon, History obtained from patient, family, and records. Medical history significant for chronic diastolic heart failure (EF 50 to 55%, TTE 2018), hx non-ischemic cardiomyopathy as per records, hypertension, aortic stenosis/aortic regurgitation status post bioprosthetic AVR (2015), DM2 on oral meds, ongoing tobacco abuse,SERENITY on CPAP, vitiligo. Recent confinement April 2018 under General Surgery service for abdominal wound seroma status post drainage. As per patient, he has been sad and frustrated following confinement. Tired of health problems. Denies suicidality. Not sleeping well. Today, patient took 30 Klonopin tablets and 4 Xanax tablets (another friend's prescription) so he could fall asleep. Subsequently noted to be drowsy by family. At the ER, patient complained of achy headache, pleuritic chest pain with shortness of breath, achy generalized abdominal discomfort with nausea, no emesis. Good bowel movement. Chest pain not immediately relieved by nitroglycerin given at the ER. Patient stated that "he does not care" when directly queried by ER physician if he wanted to . 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 Allergies Allergy/AdvReac Type Severity Reaction Status Date / Time No Known Allergies Allergy Verified 07/18/19 22:47 Home Medications Home Medications Medication Instructions Recorded Confirmed Type aspirin 81 mg PO DAILY 01/02/19 07/18/19 History atorvastatin 80 mg PO DAILY 01/02/19 07/18/19 History calcipotriene 1 applic TOPICAL BID 01/02/19 07/18/19 History furosemide 20 mg PO QAM 01/02/19 07/18/19 History glipizide 5 mg PO BID 01/02/19 07/18/19 History lisinopril 20 mg PO DAILY 01/02/19 07/18/19 History metformin 1,000 mg PO BID 01/02/19 07/18/19 History topiramate 50 mg PO BID 01/02/19 07/18/19 History albuterol sulfate 2 puff INHALATION QID PRN 07/18/19 07/18/19 History carvedilol [Coreg] 12.5 mg PO BID 07/18/19 07/18/19 History escitalopram oxalate [Lexapro] 20 mg PO DAILY 07/18/19 07/18/19 History spironolactone [Aldactone] 12.5 mg PO DAILY 07/18/19 07/18/19 History tacrolimus 1 applic TOPICAL UD 07/18/19 07/18/19 History Past Med/Surg History Medical History Hypertension (Chronic) 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) "EF 25-29% on echo 09/2016" Cardiomyopathy (Chronic) "idiopathic" DM type 2 (diabetes mellitus, type 2) (Chronic) Morbid obesity with BMI of 45.0-49.9, adult (Chronic) Sleep disorder (Chronic) Vitiligo (Chronic) GERD (gastroesophageal reflux disease) (Chronic) Pulmonary hypertension (Chronic) "moderate per echo 09/2016" Valvular heart disease (Chronic) "AV possibly bicuspid, severe , mild AR, mild MR, mild TR per echo 09/2016" Family History Other Cancer Social History Preferred Language: Danish Communication Ability: Effective 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 Beliefs That Will Affect Care: None Current Living Situation: Family Current Living Situation Comment: son Feels Safe at Home: Yes Safety Concerns: Feels Safe At This Time Smoking Status: Current some day smoker Tobacco Type: cigarettes ; Cigarettes Per Day: 2 ; Hx Alcohol Use: Yes Alcohol type: beer, wine and hard liquor Hx Substance Use: No Review of Systems 2 Review of Systems: As per HPI, all 10 systems reviewed, all other ROS negative Physical Exam Physical Exam: GENERAL: Comfortable, episodic lethargy, no respiratory distress, obese, looks older than stated age SKIN: Normal color, warm HEENT: [place] palpebral conjunctivae, both eyelids intermittently droopy during encounter, chronic hypopigmentation right upper lid, dry buccal mucosa NECK : Supple, short neck, no tenderness CHEST : Decreased breath sounds, sternal tenderness HEART : RRR, systolic murmur ABDOMEN: Some distention, nontender EXTREMITIES : Bilateral LE swelling, minimal LE tenderness, no other conspicuous deformities noted NEUROLOGIC : Coherent, episodic lethargy, no facial asymmetry, no other gross focality Results & Data Vital Signs (Past 12 Hours) Vital Signs Temp Pulse Pulse Resp BP BP Pulse Ox 07/18/19 23:40 89 20 135/88 98 07/18/19 22:59 90 20 133/83 96 07/18/19 22:46 90 133/83 100 07/18/19 22:30 92 H 130/83 98 07/18/19 22:17 97 H 120/90 91 07/18/19 22:03 101 H 147/106 H 95 07/18/19 21:47 36.8 C 99 H 16 143/99 H 92 Laboratory Results Laboratory Results WBC 8.65 K/uL (4.8-10.8) 07/18/19 22:03 RBC 5.25 M/uL (4.7-6.1) 07/18/19 22:03 Hgb 17.2 g/dL (14.0-18.0) 07/18/19 22:03 POC Hgb 17.0 g/dl (14.0-18.0) 07/18/19 22:06 Hct 48.7 % (42-52) 07/18/19 22:03 POC Hct 50 % (42-52) 07/18/19 22:06 MCV 92.8 fL (80-100) 07/18/19 22:03 MCH 32.8 pg (25-34) 07/18/19 22:03 MCHC 35.3 g/dL (32-36) 07/18/19 22:03 RDW Std Deviation 43.6 fL (36.4-46.3) 07/18/19 22:03 RDW Coeff of Tyron 13.0 % (11.5-14.5) 07/18/19 22:03 Plt Count 295 K/uL (130-400) 07/18/19 22:03 MPV 9.5 fL (7.4-10.4) 07/18/19 22:03 Immature Gran % (Auto) 0.8 % 07/18/19 22:03 Neut % (Auto) 58.6 % 07/18/19 22:03 Lymph % (Auto) 30.8 % 07/18/19 22:03 [place] % (Auto) 6.5 % 07/18/19 22:03 Eos % (Auto) 2.7 % 07/18/19 22:03 Baso % (Auto) 0.6 % 07/18/19 22:03 Immature Gran # (Auto) 0.07 K/uL (0.00-0.02) H 07/18/19 22:03 Neut # (Auto) 5.08 K/uL (1.4-6.5) 07/18/19 22:03 Lymph # (Auto) 2.66 K/uL (1.2-3.4) 07/18/19 22:03 Sabine # (Auto) 0.56 K/uL (0.11-0.59) 07/18/19 22:03 Eos # (Auto) 0.23 K/uL (0-0.5) 07/18/19 22:03 Baso # (Auto) 0.05 K/uL (0-0.2) 07/18/19 22:03 PT 9.7 Seconds (9.0-12.0) 07/18/19 22:03 INR 0.9 (0.9-1.1) 07/18/19 22:03 POC Sodium 140 mEq/L (135-144) 07/18/19 22:06 Sodium 140 mmol/L (136-145) 07/18/19 22:03 POC Potassium 3.7 mEq/L (3.3-5.0) 07/18/19 22:06 Potassium 3.7 mmol/L (3.5-5.1) 07/18/19 22:03 POC Chloride 101 mEq/L (101-112) 07/18/19 22:06 Chloride 106 mmol/L (98-107) 07/18/19 22:03 Carbon Dioxide 29 mmol/L (21-32) 07/18/19 22:03 POC Total CO2 26 mEq/l (24-31) 07/18/19 22:06 Anion Gap 4.0 (3-11) 07/18/19 22:03 POC Anion Gap 18.0 mmol/L (16-25) 07/18/19 22:06 POC BUN 15 mg/dl (7-18) 07/18/19 22:06 BUN 14 mg/dl (7-18) 07/18/19 22:03 Creatinine 0.75 mg/dl (0.6-1.4) 07/18/19 22:03 POC Creatinine 0.7 mg/dl (0.6-1.3) 07/18/19 22:06 Est Cr Clr Drug Dosing 193.4 ml/min 07/18/19 22:03 Est GFR ( Amer) 131.1 07/18/19 22:03 Est GFR (Non-Af Amer) 113.1 07/18/19 22:03 BUN/Creatinine Ratio 18.7 (10-20) 07/18/19 22:03 Glucose 197 mg/dl (70-99) H 07/18/19 22:03 POC Glucose 171 (70-99) H 07/18/19 22:00 POC Glucose (other) 200 mg/dl (70-99) H 07/18/19 22:06 Calcium 8.7 mg/dl (8.5-10.1) 07/18/19 22:03 POC Ioniz Calcium Ralph 1.14 mmol/l (1.12-1.32) 07/18/19 22:06 Magnesium 2.1 mg/dl (1.8-2.4) 07/18/19 22:03 Total Bilirubin 0.3 mg/dl (0.2-1) 07/18/19 22:03 AST 9 U/L (15-37) L 07/18/19 22:03 ALT 19 U/L (12-78) 07/18/19 22:03 Alkaline Phosphatase 126 U/L (45-117) H 07/18/19 22:03 Troponin I 0.126 ng/ml (0-0.045) H* 07/18/19 22:03 Total Protein 7.0 gm/dl (6.4-8.2) 07/18/19 22:03 Albumin 3.1 gm/dl (3.4-5.0) L 07/18/19 22:03 Globulin 3.9 gm/dl (2.5-4.0) 07/18/19 22:03 Albumin/Globulin Ratio 0.8 (0.9-2) L 07/18/19 22:03 Lipase 104 U/L (73-393) 07/18/19 22:03 TSH 2.060 uIu/ml (0.300-4.500) 07/18/19 22:03 Salicylates < 1.7 mg/dl (2.8-20) L 07/18/19 22:03 Acetaminophen < 2 ug/ml (10-30) L 07/18/19 22:03 Ethyl Alcohol mg/dL < 3.0 mg/dl (0-3) 07/18/19 22:16 Diagnostic Findings EKG as per my interpretation: Rate 100, normal sinus rhythm, normal axis, T wave inversion lateral leads CT head initial read: stable arachnoid cysts in the right middle cranial fossa/retrocerebellar region. No ICH, mass-effect or edema. CT chest initial read: Respiratory motion artifact. No convincing evidence of acute central PE. Evaluation at subsegmental levels is limited. No RV strain. No airspace consolidation. CT abdomen pelvis: Cholecystectomy postsurgical changes in the periumbilical anterior abdominal wall with small fat-containing umbilical hernia.. Liver spleen pancreas adrenal glands and kidneys and appendix are unremarkable. No obstructed/inflammatory changes in the bowel. Urinary bladder and prostate are unremarkable.
[2019-07-19 00:39] LABS: Amphetamines+Metham, Urine Neg (Neg); Barbiturates, Urine Neg (Neg); Benzodiazepine, Urine Pos (Neg); Cocaine, Urine Neg (Neg); MDMA (Ecstacy), Urine Neg (Neg); Methadone, Urine Neg (Neg); Opiate, Urine Neg (Neg); Phencyclidine, Urine Neg (Neg)
[2019-07-19] MEDS ORDERED: OPTIRAY 320 125ml IV PRN (00:46)
[2019-07-19] MEDS ORDERED: GLUCOSE 10 TABS/TUBE PO PRN (01:17)
[2019-07-19] MEDS ORDERED: ACETAMINOPHEN 325 MG TAB PO PRN (01:17)
[2019-07-19] MEDS ORDERED: GLUCOSE 40% GEL 15 GM TUBE PO PRN (01:17)
[2019-07-19] MEDS ORDERED: TRAMADOL HCL 50 MG TABLET PO PRN (01:17)
[2019-07-19] MEDS ORDERED: PROMETHAZINE HCL 12.5 MG in SODIUM CHLORIDE 0.9% 50 ML IV PRN (01:17)
[2019-07-19] MEDS ORDERED: DEXTROSE 50% 50 ML SYRINGE IV PRN (01:17)
[2019-07-19] MEDS ORDERED: CARBOHYDRATES FOR HYPOGLYCEMIA PO PRN (01:17)
[2019-07-19] MEDS ORDERED: GLUCAGON FOR INJ 1 MG VIAL SQ PRN (01:17)
--- NOTE | 2019-07-19 01:46 | Emergency Department Note ---
Entered by Casi Blanco acting as a scribe for Wally Damon MD History of Present Illness General Chief complaint: Overdose (Intentional) Stated complaint: DROWSY, INCOHERENT, TOOK TOO MUCH MEDICATION Source: patient and friends (ex-) Mode of arrival: EMS Limitations: altered mental status History of Present Illness Provider complaint: Overdose (intentional) Onset (ago): hour(s) (around 1600) Location: mouth Severity: similar to prior episodes Pain Consistency: + other (episode) Quality: + other (overdose on Klonopin and Xanax) Associated symptoms: + confusion The patient is a 43 year old male with a history of hypertension, combined systolic and diastolic heart failure, cardiomyopathy, type 2 diabetes, GERD, and valvular heart disease who presents to the Emergency Room with complaints of an episode of an intentional overdose occurring around 1600 today. The patient states that he took about 30 Klonopin pills of an unknown dosage which she got from a friend. He reportedly also took Xanax and drank 1 beer. He notes that he has never taken Klonopin and Xanax before. Per ex-, the patient called her around 2019 and asked her to drive him to his son's workplace. She mentions that the patient lives with his son. She reports that she arrived at the patient's house around 2049 and noticed that he was very disoriented and had trouble getting into the car. She mentions that he was able to consume most of a hoagie in the car prior to arrival. She states that he told her that he took pills to go to sleep and ended up taking too many. She notes that he has experienced intermittent mental health issues since his heart surgery and was recently evaluated for depression. She indicates that the patient has had problems with overdosing before and expresses suspicion that he might have tried to hurt himself tonight. Per ex-, the patient did not go to work today. The patient denies any drug use. He states that he does not care if he dies at this point because of his health issues. HPI limited secondary to altered mental status. Home Medications Home Medications Medication Instructions Recorded Confirmed Type aspirin 81 mg PO DAILY 01/02/19 07/18/19 History atorvastatin 80 mg PO DAILY 01/02/19 07/18/19 History calcipotriene 1 applic TOPICAL BID 01/02/19 07/18/19 History furosemide 20 mg PO QAM 01/02/19 07/18/19 History glipizide 5 mg PO BID 01/02/19 07/18/19 History lisinopril 20 mg PO DAILY 01/02/19 07/18/19 History metformin 1,000 mg PO BID 01/02/19 07/18/19 History topiramate 50 mg PO BID 01/02/19 07/18/19 History albuterol sulfate 2 puff INHALATION QID PRN 07/18/19 07/18/19 History carvedilol [Coreg] 12.5 mg PO BID 07/18/19 07/18/19 History escitalopram oxalate [Lexapro] 20 mg PO DAILY 07/18/19 07/18/19 History spironolactone [Aldactone] 12.5 mg PO DAILY 07/18/19 07/18/19 History tacrolimus 1 applic TOPICAL UD 07/18/19 07/18/19 History Allergies Allergy/AdvReac Type Severity Reaction Status Date / Time No Known Allergies Allergy Verified 07/18/19 22:47 Past Med/Surg History Medical History Hypertension (Chronic) 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) "EF 25-29% on echo 09/2016" Cardiomyopathy (Chronic) "idiopathic" DM type 2 (diabetes mellitus, type 2) (Chronic) Morbid obesity with BMI of 45.0-49.9, adult (Chronic) Sleep disorder (Chronic) Vitiligo (Chronic) GERD (gastroesophageal reflux disease) (Chronic) Pulmonary hypertension (Chronic) "moderate per echo 09/2016" Valvular heart disease (Chronic) "AV possibly bicuspid, severe , mild AR, mild MR, mild TR per echo 09/2016" Family History Other Cancer Social History Preferred Language: Icelandic Communication Ability: Effective Group Underwriter Required: No Beliefs That Will Affect Care: None Current Living Situation: Family Current Living Situation Comment: son Feels Safe at Home: Yes Safety Concerns: Feels Safe At This Time Smoking Status: Current some day smoker Tobacco Type: cigarettes ; Cigarettes Per Day: 2 ; Hx Alcohol Use: Yes Alcohol type: beer, wine and hard liquor Hx Substance Use: No Review of Systems Other (Limited secondary to altered mental status) Physical Exam Vital Signs Vital Signs - 24 hr 07/18/19 21:47 07/18/19 22:03 07/18/19 22:06 Temperature 36.8 C Temperature Source Oral Sepsis Recent Fever Within 48 Hours No Sepsis New/Unexplained Change in Mental Status No Sepsis Action Taken by Nursing No Action Required End-Tidal CO2 35 Oxygen Flow Rate - Titration Pulse Rate 99 H 101 H Pulse Rate [Right Finger] Pulse Rhythm [Right Finger] Pulse Strength [Right Finger] Respiratory Rate 16 Respiratory Effort / Characteristics Non-Labored Spontaneous Respiratory Depth Shallow Respiratory Pattern Regular Blood Pressure 143/99 H 147/106 H Blood Pressure [Right Arm] Blood Pressure Mean 113 119 Blood Pressure Mean [Right Arm] Blood Pressure Position Sitting Pulse Oximetry 92 95 Oxygen Delivery Method Room Air Room Air Nasal Cannula Oxygen Flow Rate 2 07/18/19 22:07 07/18/19 22:17 07/18/19 22:30 Temperature Temperature Source Sepsis Recent Fever Within 48 Hours Sepsis New/Unexplained Change in Mental Status Sepsis Action Taken by Nursing End-Tidal CO2 31 23 Oxygen Flow Rate - Titration 2 Pulse Rate 97 H 92 H Pulse Rate [Right Finger] Pulse Rhythm [Right Finger] Pulse Strength [Right Finger] Respiratory Rate Respiratory Effort / Characteristics Respiratory Depth Respiratory Pattern Blood Pressure 120/90 130/83 Blood Pressure [Right Arm] Blood Pressure Mean 100 98 Blood Pressure Mean [Right Arm] Blood Pressure Position Pulse Oximetry 91 98 Oxygen Delivery Method Nasal Cannula Nasal Cannula Nasal Cannula Oxygen Flow Rate 2 2 07/18/19 22:46 07/18/19 22:59 07/18/19 23:40 Temperature Temperature Source Sepsis Recent Fever Within 48 Hours Sepsis New/Unexplained Change in Mental Status Sepsis Action Taken by Nursing End-Tidal CO2 34 Oxygen Flow Rate - Titration Pulse Rate 90 Pulse Rate [Right Finger] 90 89 Pulse Rhythm [Right Finger] Regular Regular Pulse Strength [Right Finger] Normal Normal Respiratory Rate 20 20 Respiratory Effort / Characteristics Spontaneous Non-Labored Spontaneous Respiratory Depth Normal Normal Respiratory Pattern Blood Pressure 133/83 Blood Pressure [Right Arm] 133/83 135/88 Blood Pressure Mean 99 Blood Pressure Mean [Right Arm] 99 103 Blood Pressure Position Pulse Oximetry 100 96 98 Oxygen Delivery Method Nasal Cannula Nasal Cannula Nasal Cannula Oxygen Flow Rate 2 2 2 Constitutional: Vital signs reviewed. Somnolent but answers questions. Eyes: Pupils are equal round reactive to light. Conjunctiva are noninjected. ENT: Pharynx is clear without erythema or exudate. Mucous membranes are moist. Neck supple without meningeal signs. Respiratory: Clear to auscultation bilaterally. Breath sounds are equal bilaterally. Cardiovascular: Regular rate and rhythm. No rubs or gallops. GI: Soft, nondistended and nontender. Bowel sounds are present. Musculoskeletal: No peripheral edema. No lower extremity tenderness. Integumentary: No cyanosis. Neurological: The patient is somnolent but answers questions. Hypophonic. Psychiatric: Unable to assess. Course 2155: The patient was evaluated in room B1, and a complete history and physical examination were performed. 2213: I reviewed the patient's case with Poison Control. Poison Control recommends supportive care. 2255: I reevaluated the patient and he stated that he developed chest tightness about 40 minutes ago. He noted that he has been getting this pain every day for the past year and has seen Dr. Espinoza about it. He recalled that he had a stress test performed several months ago. 2256: I reviewed the patient's case with Dr. Prieto - [place]. Dr. Prieto will evaluate the patient for further management. 2325: I checked on the patient and he still has chest pain that has moved down to his abdomen as well. Dr. Prieto is evaluating him now. Consultations Consultation #1: I reviewed the patient's case with Dr. Ida Nevarez. Dr. Prieto will evaluate the patient for further management. Time: 22:56 Administered Medications Ioversol (Optiray 320 125ml) 120 ml IV ONCE PRN PRN Reason: Interaction Checking Stop: 07/23/19 00:45 Last Admin: 07/19/19 00:46 Dose: 120 ml Documented by: [id number] Discontinued Medications Aspirin (Aspirin) Confirm Administered Dose 324 mg .ROUTE .STK-MED ONE Stop: 07/18/19 22:57 Last Admin: 07/18/19 22:58 Dose: 324 mg Documented by: [id number] Aspirin (Aspirin Chew) 324 mg PO NOW STA Stop: 07/18/19 22:58 Last Admin: 07/18/19 23:06 Dose: Not Given Documented by: [id number] Sodium Chloride (Nss 1000ml) 500 mls @ 999 mls/hr IV .Q31M ONE Stop: 07/18/19 23:28 Last Infusion: 07/18/19 23:38 Dose: 0 mls/hr Documented by: [id number] Admin: 07/18/19 23:06 Dose: 999 mls/hr Documented by: [id number] Nitroglycerin (Nitrostat) Confirm Administered Dose 0.4 mg .ROUTE .STK-MED ONE Stop: 07/18/19 22:52 Last Admin: 07/18/19 22:52 Dose: 0.4 mg Documented by: [id number] Medical Decision Making Differential Diagnosis Differential diagnosis includes: drug overdose, respiratory depression, mood disorder, suicide attempt, alcohol intoxication, drug abuse. Medical Records Attestation: I reviewed the patient's medical records. I did perform a limited focused review of portions of the patient's old chart on the electronic medical record. The patient was seen here on June 08 for a foot laceration. Home Medications Current Medication List: was personally reviewed by me Laboratory Data Attestation: I reviewed the patient's lab results. Result diagrams: 07/18/19 22:03 07/18/19 22:03 Lab Results 07/18/19 07/18/19 07/18/19 Range/Units 21:50 22:00 22:03 WBC 8.65 (4.8-10.8) K/uL RBC 5.25 (4.7-6.1) M/uL Hgb 17.2 (14.0-18.0) g/dL POC Hgb (14.0-18.0) g/dl Hct 48.7 (42-52) % POC Hct (42-52) % MCV 92.8 (80-100) fL MCH 32.8 (25-34) pg MCHC 35.3 (32-36) g/dL RDW Std Deviation 43.6 (36.4-46.3) fL RDW Coeff of Tyron 13.0 (11.5-14.5) % Plt Count 295 (130-400) K/uL MPV 9.5 (7.4-10.4) fL Immature Gran % (Auto) 0.8 % Neut % (Auto) 58.6 % Lymph % (Auto) 30.8 % [place] % (Auto) 6.5 % Eos % (Auto) 2.7 % Baso % (Auto) 0.6 % Immature Gran # (Auto) 0.07 H (0.00-0.02) K/uL Neut # (Auto) 5.08 (1.4-6.5) K/uL Lymph # (Auto) 2.66 (1.2-3.4) K/uL [place] # (Auto) 0.56 (0.11-0.59) K/uL Eos # (Auto) 0.23 (0-0.5) K/uL Baso # (Auto) 0.05 (0-0.2) K/uL PT (9.0-12.0) Seconds INR (0.9-1.1) POC Sodium (135-144) mEq/L Sodium (136-145) mmol/L POC Potassium (3.3-5.0) mEq/L Potassium (3.5-5.1) mmol/L POC Chloride (101-112) mEq/L Chloride (98-107) mmol/L Carbon Dioxide (21-32) mmol/L POC Total CO2 (24-31) mEq/l Anion Gap (3-11) POC Anion Gap (16-25) mmol/L POC BUN (7-18) mg/dl BUN (7-18) mg/dl Creatinine (0.6-1.4) mg/dl POC Creatinine (0.6-1.3) mg/dl Est Cr Clr Drug Dosing ml/min Est GFR ( Amer) Est GFR (Non-Af Amer) BUN/Creatinine Ratio (10-20) Glucose (70-99) mg/dl POC Glucose 168 H 171 H (70-99) POC Glucose (other) (70-99) mg/dl Calcium (8.5-10.1) mg/dl POC Ioniz Calcium Ralph (1.12-1.32) mmol/l Magnesium (1.8-2.4) mg/dl Total Bilirubin (0.2-1) mg/dl AST (15-37) U/L ALT (12-78) U/L Alkaline Phosphatase (45-117) U/L Troponin I (0-0.045) ng/ml Total Protein (6.4-8.2) gm/dl Albumin (3.4-5.0) gm/dl Globulin (2.5-4.0) gm/dl Albumin/Globulin Ratio (0.9-2) Lipase (73-393) U/L TSH (0.300-4.500) uIu/ml Salicylates (2.8-20) mg/dl Acetaminophen (10-30) ug/ml Ethyl Alcohol mg/dL (0-3) mg/dl 07/18/19 07/18/19 07/18/19 Range/Units 22:03 22:03 22:03 WBC (4.8-10.8) K/uL RBC (4.7-6.1) M/uL Hgb (14.0-18.0) g/dL POC Hgb (14.0-18.0) g/dl Hct (42-52) % POC Hct (42-52) % MCV (80-100) fL MCH (25-34) pg MCHC (32-36) g/dL RDW Std Deviation (36.4-46.3) fL RDW Coeff of Tyron (11.5-14.5) % Plt Count (130-400) K/uL MPV (7.4-10.4) fL Immature Gran % (Auto) % Neut % (Auto) % Lymph % (Auto) % [place] % (Auto) % Eos % (Auto) % Baso % (Auto) % Immature Gran # (Auto) (0.00-0.02) K/uL Neut # (Auto) (1.4-6.5) K/uL Lymph # (Auto) (1.2-3.4) K/uL [place] # (Auto) (0.11-0.59) K/uL Eos # (Auto) (0-0.5) K/uL Baso # (Auto) (0-0.2) K/uL PT 9.7 (9.0-12.0) Seconds INR 0.9 (0.9-1.1) POC Sodium (135-144) mEq/L Sodium 140 (136-145) mmol/L POC Potassium (3.3-5.0) mEq/L Potassium 3.7 (3.5-5.1) mmol/L POC Chloride (101-112) mEq/L Chloride 106 (98-107) mmol/L Carbon Dioxide 29 (21-32) mmol/L POC Total CO2 (24-31) mEq/l Anion Gap 4.0 (3-11) POC Anion Gap (16-25) mmol/L POC BUN (7-18) mg/dl BUN 14 (7-18) mg/dl Creatinine 0.75 (0.6-1.4) mg/dl POC Creatinine (0.6-1.3) mg/dl Est Cr Clr Drug Dosing 193.4 ml/min Est GFR ( Amer) 131.1 Est GFR (Non-Af Amer) 113.1 BUN/Creatinine Ratio 18.7 (10-20) Glucose 197 H (70-99) mg/dl POC Glucose (70-99) POC Glucose (other) (70-99) mg/dl Calcium 8.7 (8.5-10.1) mg/dl POC Ioniz Calcium Ralph (1.12-1.32) mmol/l Magnesium 2.1 (1.8-2.4) mg/dl Total Bilirubin 0.3 (0.2-1) mg/dl AST 9 L (15-37) U/L ALT 19 (12-78) U/L Alkaline Phosphatase 126 H (45-117) U/L Troponin I 0.126 H* (0-0.045) ng/ml Total Protein 7.0 (6.4-8.2) gm/dl Albumin 3.1 L (3.4-5.0) gm/dl Globulin 3.9 (2.5-4.0) gm/dl Albumin/Globulin Ratio 0.8 L (0.9-2) Lipase 104 (73-393) U/L TSH 2.060 (0.300-4.500) uIu/ml Salicylates < 1.7 L (2.8-20) mg/dl Acetaminophen < 2 L (10-30) ug/ml Ethyl Alcohol mg/dL (0-3) mg/dl 07/18/19 07/18/19 Range/Units 22:06 22:16 WBC (4.8-10.8) K/uL RBC (4.7-6.1) M/uL Hgb (14.0-18.0) g/dL POC Hgb 17.0 (14.0-18.0) g/dl Hct (42-52) % POC Hct 50 (42-52) % MCV (80-100) fL MCH (25-34) pg MCHC (32-36) g/dL RDW Std Deviation (36.4-46.3) fL RDW Coeff of Tyron (11.5-14.5) % Plt Count (130-400) K/uL MPV (7.4-10.4) fL Immature Gran % (Auto) % Neut % (Auto) % Lymph % (Auto) % [place] % (Auto) % Eos % (Auto) % Baso % (Auto) % Immature Gran # (Auto) (0.00-0.02) K/uL Neut # (Auto) (1.4-6.5) K/uL Lymph # (Auto) (1.2-3.4) K/uL [place] # (Auto) (0.11-0.59) K/uL Eos # (Auto) (0-0.5) K/uL Baso # (Auto) (0-0.2) K/uL PT (9.0-12.0) Seconds INR (0.9-1.1) POC Sodium 140 (135-144) mEq/L Sodium (136-145) mmol/L POC Potassium 3.7 (3.3-5.0) mEq/L Potassium (3.5-5.1) mmol/L POC Chloride 101 (101-112) mEq/L Chloride (98-107) mmol/L Carbon Dioxide (21-32) mmol/L POC Total CO2 26 (24-31) mEq/l Anion Gap (3-11) POC Anion Gap 18.0 (16-25) mmol/L POC BUN 15 (7-18) mg/dl BUN (7-18) mg/dl Creatinine (0.6-1.4) mg/dl POC Creatinine 0.7 (0.6-1.3) mg/dl Est Cr Clr Drug Dosing ml/min Est GFR ( Amer) Est GFR (Non-Af Amer) BUN/Creatinine Ratio (10-20) Glucose (70-99) mg/dl POC Glucose (70-99) POC Glucose (other) 200 H (70-99) mg/dl Calcium (8.5-10.1) mg/dl POC Ioniz Calcium Ralph 1.14 (1.12-1.32) mmol/l Magnesium (1.8-2.4) mg/dl Total Bilirubin (0.2-1) mg/dl AST (15-37) U/L ALT (12-78) U/L Alkaline Phosphatase (45-117) U/L Troponin I (0-0.045) ng/ml Total Protein (6.4-8.2) gm/dl Albumin (3.4-5.0) gm/dl Globulin (2.5-4.0) gm/dl Albumin/Globulin Ratio (0.9-2) Lipase (73-393) U/L TSH (0.300-4.500) uIu/ml Salicylates (2.8-20) mg/dl Acetaminophen (10-30) ug/ml Ethyl Alcohol mg/dL < 3.0 (0-3) mg/dl Imaging Data Attestation: I personally reviewed and interpreted this imaging study as follow s: My Impression: Radiology results as stated below per my review and interpretation: XR CHEST 1V Findings: Cardiomegaly, no focal infiltrate. ECG Data Attestation: I personally reviewed and interpreted this ECG as follows: Indication: other (overdose) Rate (beats per minute): 99 Findings: + other (QTC is 528, QRS is 94) and + T-wave inversion (lead I, AVL) Comparison ECG Date: from (12/2107) Change: no significant change Additional Comments: REPEAT EKG FINDINGS: normal sinus rhythm, 90 BPM, persistent TWI in lead I and AVL. Biphasic T waves in V5 and V6. Similar to prior. Blood Pressure Blood Pressure Findings: Elevated blood pressure Blood Pressure Disposition: Referred to patients primary care provider [facility] Narrative I did evaluate the patient as noted above. I did obtain history from the p atient as well as his ex- and [id number]-law. He admits to taking approximately 30 Klonopin earlier today. He states that he does not care if he lives or dies. I did discuss the case with poison control who recommended supportive care. IV access was established. The patient was placed on a continuous secured entrance monitor. I did order and personally review the patient's 12- lead EKG as described above. The patient has T wave inversions in the lateral and high lateral leads. These were present to a degree in his previous EKG from 2018 in December. I did order and personally reviewed the images of the patient's chest x-ray as described above. There is no evidence of acute pneumonia. I did order and review the patient's blood work as noted in the electronic medical record. CBC and CMP are unremarkable other than for hyperglycemia. His troponin is 0.126. He denies having any history of CAD. He did have aortic valve replacement in 2016. He states he has had chest pain for the past year almost every day. He states while in the emergency department he developed chest tightness which he rates a 6 out of 10 in severity. He states this is the same chest pain he has had for the past year. He has seen Dr. Espinoza of cardiology for this and has had a negative stress test. His [id number]-[id number]-law notes that he has told him that his discomfort is worse with exertion. The patient was given sublingual nitroglycerin here. He is also given an aspirin. I did repeat a twelve-lead EKG which shows unchanged T wave inversions without any ST elevations. I did discuss the case with the hospitalist and pillowcase turner. He will be hospitalized for further care and evaluation will require psychiatric evaluation. Impression & Plan Benzodiazepine overdose, Mood disorder, Suicide attempt, Precordial chest pain, Abnormal EKG, Elevated troponin, Hyperglycemia Discharge Plan Visit Data *Final* Discharge Date/Time: 07/19/19 00:21 Chief Complaint: Overdose (Intentional) Stated Complaint: DROWSY, INCOHERENT, TOOK TOO MUCH MEDICATION ED Provider: Wally Damon Discharge Problem: Benzodiazepine overdose, Mood disorder, Suicide attempt, Precordial chest pain, Abnormal EKG, Elevated troponin, Hyperglycemia Patient Disposition: Admitted As Inpatient Discharge Instructions Interventions: ED Discharge Assessment Last Done: 07/19/19 00:21 Discharge Problem: Benzodiazepine overdose Qualifiers: Encounter type: initial encounter Injury intent: intentional self-harm Qualified Code(s): T42.4X2A - Poisoning by benzodiazepines, intentional self- harm, initial encounter The yehudaibe's documentation has been prepared under my direction and personally reviewed by me in its entirety. I confirm that the note above accurately reflects all work, treatment, procedures, and medical decision making performed by me.
[2019-07-19] MEDS ORDERED: NITROGLYCERIN SL 0.4 MG/TAB TAB SL PRN (01:59)
[2019-07-19] MEDS: INSULIN ASPART 100 UNITS/ML 3 ML PEN SC SCH ×5 (02:03→20:26)
[2019-07-19] MEDS ORDERED: INSULIN GLARGINE SOLOSTAR 100 UNITS/ML 3 ML PEN SQ STA (02:04)
[2019-07-19 02:29] LABS: Basophils # (auto) 0.05 K/uL (0-0.2); Basophils % (auto) 0.6 %; Eosinophils # (auto) 0.22 K/uL (0-0.5); Eosinophils % (auto) 2.7 %; Hematocrit (blood only) 44.7 % (42-52); Hemoglobin 15.4 g/dL (14.0-18.0); Immature Granulocytes # (auto) 0.06 K/uL (0.00-0.02); Immature Granulocytes % (auto) 0.7 %; Lymphocytes % (auto) 35.1 %; Mean Corpuscular Hemoglobin 31.7 pg (25-34); Mean Corpuscular Hgb Conc 34.5 g/dL (32-36); Mean Platelet Volume 9.5 fL (7.4-10.4); Monocytes # (auto) 0.61 K/uL (0.11-0.59); Monocytes % (auto) 7.4 %; Neutrophils # (auto) 4.42 K/uL (1.4-6.5); Neutrophils % (auto) 53.5 %; Platelet Count 268 K/uL (130-400); RDW Standard Deviation 43.4 fL (36.4-46.3); Red Blood Count 4.86 M/uL (4.7-6.1); White Blood Count 8.26 K/uL (4.8-10.8)
[2019-07-19 02:41] LABS: Partial Thromboplastin Ratio 0.9; Partial Thromboplastin Time 25.6 Seconds (21.0-31.0)
[2019-07-19 02:41] LABS: Appearance Urine Clear (Clear); Bacteria Urine Automated Negative (Negative); Bilirubin Urine Negative (Negative); Blood Urine Negative (Negative); Color Urine Yellow; Glucose Urine UA 2+ (Negative); Ketones Urine Negative (Negative); Leukocyte Esterase Urine Negative (Negative); Nitrite Urine Negative (Negative); Protein Urine 1+ (Negative); RBC Urine Automated 0-4 /hpf (0-4); Specific Gravity Urine 1.029 (1.000-1.030); Urobilinogen Urine Negative (Negative)
[2019-07-19 02:46] LABS: BUN Creatinine Ratio 22.9 (10-20); Calcium 8.3 mg/dl (8.5-10.1); Creatinine Clr Calc Pharmacy 172.3 ml/min; Est GFR (African American) 131.1; Est GFR (Non-African American) 113.1; Potassium 3.7 mmol/L (3.5-5.1)
[2019-07-19 02:52] LABS: Troponin I 0.153 ng/ml (0-0.045)
[2019-07-19] MEDS ORDERED: Heparin IV Standard *NO* Bolus STA (02:57)
[2019-07-19] MEDS: HEPARIN SODIUM/DEXTROSE 25,000 UNITS/500 ML BAG IV SCH ×2 (03:30→17:20)
--- NOTE | 2019-07-19 06:10 | CT Scan Report ---
CT abd pelvis IV con only CLINICAL HISTORY: 43 years-old Male presenting with generalized abdominal pain. TECHNIQUE: Multidetector CT of the abdomen and pelvis was performed after the administration of intra venous contrast. IV contrast: 120 mL of Optiray 320. One or more dose lowering techniques were used c onsistent with the principles of ALARA (as low as reasonably achievable), including automatic exposur e control, mA or kV adjustment to individual patient size, and/or use of iterative reconstruction. COMPARISON: 01/02/2019. CT DOSE (mGy.cm): The estimated cumulative dose is 3708.03. FINDINGS: English Adjunct Faculty topogram: Cholecystectomy clips and median sternotomy wires. Lung bases: Mild multichamber enlargement of the heart. No pericardial or pleural effusion. No focal infiltrate or nodule at the lung bases. Liver: Normal morphology. No liver lesion. Patent hepatic vasculature. Biliary: No intrahepatic or extrahepatic biliary ductal dilatation. Gallbladder surgically absent. Pancreas: Normal. Spleen: Normal. Adrenal glands: Normal. Kidneys and ureters: Normal. No hydronephrosis. Bladder: Incompletely evaluated secondary to underdistention. Pelvic organs: Prostate enlargement likely secondary to benign prostatic hyperplasia. Bowel: Normal appendix. No bowel obstruction. Peritoneal cavity: No free fluid or intraperitoneal gas. Lymph nodes: No enlarged lymph nodes in the abdomen or pelvis. Vasculature: Aorta and IVC patent and normal in caliber. Abdominal wall: Postsurgical changes of the periumbilical abdominal wall. Fat-containing supraumbilic al hernia, which is slightly increased in size from prior. No associated inflammatory change. Musculoskeletal: Normal. IMPRESSION: 1. No acute intra-abdominal pathology. 2. Suspected prostatomegaly, which may indicate underlying benign prostatic hyperplasia. 3. Postsurgical changes of cholecystectomy. 4. Postsurgical changes of the periumbilical abdominal wall with supraumbilical fat-containing herni a slightly increased in size from prior. No evidence of strangulation. 5. Mild cardiomegaly. Electronically signed by: Mauricio Deshpande M.D. 07/19/2019 6:09 AM
--- NOTE | 2019-07-19 06:16 | CT Scan Report ---
CT angio chest PE protocol CLINICAL HISTORY: 43 years-old Male presenting with overdose, history of heart disease, concern for a spiration or PE. TECHNIQUE: Multidetector CT angiography of the chest was performed after administration of intravenou s contrast. 3-D volumetric and/or maximum intensity projection (MIP) images were subsequently reconst ructed for review. IV contrast: 120 mL of Optiray 320. One or more dose lowering techniques were used consistent with the principles of ALARA (as low as reasonably achievable), including automatic expos ure control, mA or kV adjustment to individual patient size, and/or use of iterative reconstruction. COMPARISON: 10/08/2016. CT DOSE (mGy.cm): The estimated cumulative dose is 3708.03. FINDINGS: Gate Services Supervisor topogram: Median sternotomy wires and cholecystectomy clips. Pulmonary vasculature: The study is suboptimal for the assessment of the pulmonary vascular tree secondary to respiratory mo tion artifact. Allowing for limited image quality, no central filling defect to suggest pulmonary emb olus. Main pulmonary artery is not enlarged. No flattening of the interventricular septum. No intraca rdiac filling defect. No reflux of contrast into the hepatic veins. Remaining chest: Soft tissues: Normal thyroid and thoracic inlet. No axillary, supraclavicular, mediastinal, or hilar lymphadenopathy. Normal aorta. Multichamber enlargement of the heart. Postsurgical changes of median sternotomy with aortic valve replacement. No pericardial or pleural effusion. Upper abdomen normal. Lungs and airways: No pneumothorax. Central airways patent. Pulmonary arteries mildly enlarged relati ve to adjacent bronchi. No interlobular septal thickening. Respiratory motion artifact degrades evalu ation of the lung parenchyma. Mosaic attenuation may suggest small airways disease or be due to the p hase of respiration. No focal infiltrate or nodule allowing for respiratory motion degradation. Musculoskeletal: Degenerative changes of the spine. IMPRESSION: 1. Allowing for suboptimal image quality, no evidence of pulmonary embolus. No acute intrathoracic p athology. 2. Cardiomegaly with mild volume overload. No pulmonary edema. 3. Postsurgical changes of aortic valve replacement. Electronically signed by: Mauricio Deshpande M.D. 07/19/2019 6:14 AM
--- NOTE | 2019-07-19 06:21 | CT Scan Report ---
CT head/brain wo con CLINICAL HISTORY: 43 years-old Male presenting with ams, overdose. TECHNIQUE: Multidetector CT imaging of the head was performed without the use of intravenous contrast . IV contrast: None. One or more dose lowering techniques were used consistent with the principles of ALARA (as low as reasonably achievable), including automatic exposure control, mA or kV adjustment t o individual patient size, and/or use of iterative reconstruction. COMPARISON: 05/09/2013. CT DOSE (mGy.cm): The estimated cumulative dose is 3708.03 mGy.cm. FINDINGS: Tour Escort topogram: Unremarkable. Ventricles and sulci normal in size apart from the suspected arachnoid cysts along the anterior right temporal lobe and posterior fossa, stable from prior. No hemorrhage. Brain parenchyma normal in appe arance with preserved malave-white differentiation. No acute territorial infarct. No mass effect or mid line shift. No extra-axial fluid collection. Paranasal sinuses and mastoid air cells clear. Calvarium intact. IMPRESSION: 1. No change compared to the prior study. No acute intracranial abnormality. Electronically signed by: Mauricio Deshpande M.D. 07/19/2019 6:20 AM
[2019-07-19 07:04] LABS: Estimated Average Glucose 160 mg/dl; Hemoglobin A1C 7.2 % (4.5-5.6)
[2019-07-19] MEDS: carvediloL 12.5 MG TAB PO SCH ×2 (07:43→20:26)
[2019-07-19] MEDS: ATORVASTATIN 40 MG TAB PO SCH (07:43)
[2019-07-19] MEDS: ASPIRIN 81 MG ECTAB PO SCH (07:44)
[2019-07-19] MEDS: ESCITALOPRAM OXALATE 20 MG TAB PO SCH (07:44)
[2019-07-19] MEDS: SPIRONOLACTONE 25 MG TAB PO SCH (07:44)
[2019-07-19] MEDS: TOPIRAMATE 50 MG TAB PO SCH ×2 (07:44→20:26)
[2019-07-19] MEDS: LISINOPRIL 20 MG TAB PO SCH (07:44)
[2019-07-19] MEDS ORDERED: ENOXAPARIN INJ 40 MG/0.4 ML SYR SQ SCH (09:00)
[2019-07-19 09:58] LABS: Partial Thromboplastin Ratio 1.1; Partial Thromboplastin Time 29.9 Seconds (21.0-31.0)
[2019-07-19] MEDS ORDERED: HEPARIN IV BOLUS 8,000 UNITS in SYRINGE 0 ML IV ONE ×2 (11:00→20:00)
--- NOTE | 2019-07-19 11:55 | Cardiology Consultation ---
Date of Consultation July 19, 2019 Assessment & Plan (1) Elevated troponin: Patient admitted with acute and deliberate benzodiazepine overdose. Troponins are elevated however clinical course does not suggest an acute coronary syndrome. Question due to chronic elevation versus acute demand based ischemia Ejection fraction current echocardiogram is slightly less than on last testing though medical compliance recently uncertain. Lipids very elevated Aortic valve bioprosthesis gradients moderately elevated though consistent with past studies Recommendations: Resume usual medications while patient on telemetry Continue IV heparin additional 24 hours May consider repeat echocardiogram in a.m. or near future to reassess valvular structure and LV function Last diagnostic cardiac catheterization 2016 may ultimately need to be repeated depending on clinical course, will follow in hospital (2) Precordial chest pain: (3) Benzodiazepine overdose: (4) Cardiomyopathy: (5) Hx of aortic valve replacement: History of Present Illness Reason for Consultation: Elevated troponin Requesting Physician: Dr. Lutz Attending Physician: Chanda Lutz, DO History of Present Illness Patient is a 43-year-old male with complex ongoing cardiac issues which include 1. Congenitally bicuspid aortic valve 2. Status post aortic valve replacement (#25 [facility]) for severe aortic stenosis and nonischemic/valvular cardiomyopathy 2016. Initial ejection fraction less than 25% with clinical improvement postoperatively 3. Preoperative diagnostic cardiac catheterization with normal coronaries 4. Chronic diastolic heart failure 5. Obstructive sleep apnea on CPAP supplementation 6. Type 2 diabetes mellitus Patient presents this hospitalization noting having been chronically frustrated with life and medical issues and took a delivered excessive amount of alejandro odiazepines approximately 5 PM yesterday Troponins are notably elevated on admission patient's referred for further evaluation. He notes chronic issues with symptoms of dizziness lightheadedness fatigue occasional chest discomfort and heart pounding notes no sustained tachypalpitations notes no acute weight loss or gain notes no peripheral edema. Denies any change in his medications though medication compliance concerning No unexplained fevers or infections. Currently without chest pain or discomfort and anticoagulated with IV heparin since admission. Allergies Allergy/AdvReac Type Severity Reaction Status Date / Time No Known Allergies Allergy Verified 07/18/19 22:47 Home Medications Home Medications Medication Instructions Recorded Confirmed Type aspirin 81 mg PO DAILY 01/02/19 07/18/19 History atorvastatin 80 mg PO DAILY 01/02/19 07/18/19 History calcipotriene 1 applic TOPICAL BID 01/02/19 07/18/19 History furosemide 20 mg PO QAM 01/02/19 07/18/19 History glipizide 5 mg PO BID 01/02/19 07/18/19 History lisinopril 20 mg PO DAILY 01/02/19 07/18/19 History metformin 1,000 mg PO BID 01/02/19 07/18/19 History topiramate 50 mg PO BID 01/02/19 07/18/19 History albuterol sulfate 2 puff INHALATION QID PRN 07/18/19 07/18/19 History carvedilol [Coreg] 12.5 mg PO BID 07/18/19 07/18/19 History escitalopram oxalate [Lexapro] 20 mg PO DAILY 07/18/19 07/18/19 History spironolactone [Aldactone] 12.5 mg PO DAILY 07/18/19 07/18/19 History tacrolimus 1 applic TOPICAL UD 07/18/19 07/18/19 History 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) "EF 25-29% on echo 09/2016" Cardiomyopathy (Chronic) "idiopathic" DM type 2 (diabetes mellitus, type 2) (Chronic) Morbid obesity with BMI of 45.0-49.9, adult (Chronic) Sleep disorder (Chronic) Vitiligo (Chronic) GERD (gastroesophageal reflux disease) (Chronic) Pulmonary hypertension (Chronic) "moderate per echo 09/2016" Valvular heart disease (Chronic) "AV possibly bicuspid, severe , mild AR, mild MR, mild TR per echo 09/2016" Family History Other Cancer Social History Preferred Language: [place]an Communication Ability: Effective Extractor Puller Required: No Beliefs That Will Affect Care: None Current Living Situation: Family Current Living Situation Comment: son Feels Safe at Home: Yes Safety Concerns: Feels Safe At This Time Smoking Status: Current some day smoker Tobacco Type: cigarettes ; Cigarettes Per Day: 2 ; Hx Alcohol Use: Yes Alcohol type: beer, wine and hard liquor Hx Substance Use: No Review of Systems Review of Systems: All systems reviewed & are unremarkable except as noted in HPI & below Physical Exam Constitutional: WD/WN, vitals as above + obese Eyes: PERRL, conjunctivae normal, anicteric sclerae ENMT: Facial vitiligo Neck: trachea midline, no thyromegaly + thick neck Respiratory: normal respiratory effort, lungs clear to auscultation Cardiovascular: Rate/Rhythm: regular rate and regular rhythm Heart Sounds: + murmur (Grade 2/6 systolic no diastolic); no cardiac rub Extremities: no edema Chest (Breasts): Additional Comments: Healed midline incision Gastrointestinal (Abdomen): normal bowel sounds, soft, nontender, no hepatosplenomegaly Skin: Vitiligo Results & Data Vital Signs (Past 12 Hours) Vital Signs Temp Pulse Pulse Resp BP Pulse Ox 07/19/19 10:57 36.3 C L 82 20 131/85 96 07/19/19 08:00 89 07/19/19 07:08 36.4 C L 93 H 20 136/78 96 07/19/19 03:34 36.3 C L 85 20 145/99 H 97 07/19/19 02:34 92 H 18 98 07/19/19 00:49 36.6 C 86 16 140/92 97 07/19/19 00:15 92 H 22 151/103 H 98 Laboratory Results Laboratory Results - last 24 hr 07/18/19 07/18/19 07/18/19 21:50 22:00 22:03 WBC 8.65 RBC 5.25 Hgb 17.2 POC Hgb Hct 48.7 POC Hct MCV 92.8 MCH 32.8 MCHC 35.3 RDW Std Deviation 43.6 RDW Coeff of Tyron 13.0 Plt Count 295 MPV 9.5 Immature Gran % (Auto) 0.8 Neut % (Auto) 58.6 Lymph % (Auto) 30.8 [place] % (Auto) 6.5 Eos % (Auto) 2.7 Baso % (Auto) 0.6 Immature Gran # (Auto) 0.07 H Neut # (Auto) 5.08 Lymph # (Auto) 2.66 [place] # (Auto) 0.56 Eos # (Auto) 0.23 Baso # (Auto) 0.05 PT INR APTT PTT Ratio POC Sodium Sodium POC Potassium Potassium POC Chloride Chloride Carbon Dioxide POC Total CO2 Anion Gap POC Anion Gap POC BUN BUN Creatinine POC Creatinine Est Cr Clr Drug Dosing Est GFR ( Amer) Est GFR (Non-Af Amer) BUN/Creatinine Ratio Glucose POC Glucose 168 H 171 H POC Glucose (other) Estimat Average Glucose Hemoglobin A1c Calcium POC Ioniz Calcium Ralph Magnesium Total Bilirubin AST ALT Alkaline Phosphatase Troponin I Total Protein Albumin Globulin Albumin/Globulin Ratio Triglycerides Cholesterol LDL Cholesterol, Calc VLDL Cholesterol, Calc HDL Cholesterol Cholesterol/HDL Ratio Lipase TSH Urine Color Urine Appearance Urine pH Ur Specific [place] Urine Protein Urine Glucose (UA) Urine Ketones Urine Blood Urine Nitrite Urine Bilirubin Urine Urobilinogen Ur Leukocyte Esterase Urine WBC (Auto) Urine RBC (Auto) U Hyaline Cast (Auto) U Epithel Cells (Auto) Urine Bacteria (Auto) Salicylates Urine Opiates Screen Ur Methadone, Qual Acetaminophen Urine Barbiturates Ur Phencyclidine (PCP) U Amphetamin/Meth Scrn MDMA (Ecstasy) Screen U OH-Alprazolam Confrm U Benzodiazepines Scrn 7-Amino Clonazepam Ur Nordiazepam Confirm U OH-ethylflurazepam U Lorazepam Cnf GC/MS U Oxazepam Confm GC/MS Ur Temazepam Confirm U OH-Triazolam Confirm U OH-Midazolam Confirm Ur Cocaine Metabolite U Marijuana (THC) Screen Ethyl Alcohol mg/dL 07/18/19 07/18/19 07/18/19 22:03 22:03 22:03 WBC RBC Hgb POC Hgb Hct POC Hct MCV MCH MCHC RDW Std Deviation RDW Coeff of Tyron Plt Count MPV Immature Gran % (Auto) Neut % (Auto) Lymph % (Auto) [place] % (Auto) Eos % (Auto) Baso % (Auto) Immature Gran # (Auto) Neut # (Auto) Lymph # (Auto) [place] # (Auto) Eos # (Auto) Baso # (Auto) PT 9.7 INR 0.9 APTT PTT Ratio POC Sodium Sodium 140 POC Potassium Potassium 3.7 POC Chloride Chloride 106 Carbon Dioxide 29 POC Total CO2 Anion Gap 4.0 POC Anion Gap POC BUN BUN 14 Creatinine 0.75 POC Creatinine Est Cr Clr Drug Dosing 193.4 Est GFR ( Amer) 131.1 Est GFR (Non-Af Amer) 113.1 BUN/Creatinine Ratio 18.7 Glucose 197 H POC Glucose POC Glucose (other) Estimat Average Glucose Hemoglobin A1c Calcium 8.7 POC Ioniz Calcium Ralph Magnesium 2.1 Total Bilirubin 0.3 AST 9 L ALT 19 Alkaline Phosphatase 126 H Troponin I 0.126 H* Total Protein 7.0 Albumin 3.1 L Globulin 3.9 Albumin/Globulin Ratio 0.8 L Triglycerides Cholesterol LDL Cholesterol, Calc VLDL Cholesterol, Calc HDL Cholesterol Cholesterol/HDL Ratio Lipase 104 TSH 2.060 Urine Color Urine Appearance Urine pH Ur Specific [place] Urine Protein Urine Glucose (UA) Urine Ketones Urine Blood Urine Nitrite Urine Bilirubin Urine Urobilinogen Ur Leukocyte Esterase Urine WBC (Auto) Urine RBC (Auto) U Hyaline Cast (Auto) U Epithel Cells (Auto) Urine Bacteria (Auto) Salicylates < 1.7 L Urine Opiates Screen Ur Methadone, Qual Acetaminophen < 2 L Urine Barbiturates Ur Phencyclidine (PCP) U Amphetamin/Meth Scrn MDMA (Ecstasy) Screen U OH-Alprazolam Confrm U Benzodiazepines Scrn 7-Amino Clonazepam Ur Nordiazepam Confirm U OH-ethylflurazepam U Lorazepam Cnf GC/MS U Oxazepam Confm GC/MS Ur Temazepam Confirm U OH-Triazolam Confirm U OH-Midazolam Confirm Ur Cocaine Metabolite U Marijuana (THC) Screen Ethyl Alcohol mg/dL 07/18/19 07/18/19 07/18/19 22:06 22:16 23:03 WBC RBC Hgb POC Hgb 17.0 Hct POC Hct 50 MCV MCH MCHC RDW Std Deviation RDW Coeff of Tyron Plt Count MPV Immature Gran % (Auto) Neut % (Auto) Lymph % (Auto) [place] % (Auto) Eos % (Auto) Baso % (Auto) Immature Gran # (Auto) Neut # (Auto) Lymph # (Auto) [place] # (Auto) Eos # (Auto) Baso # (Auto) PT INR APTT PTT Ratio POC Sodium 140 Sodium POC Potassium 3.7 Potassium POC Chloride 101 Chloride Carbon Dioxide POC Total CO2 26 Anion Gap POC Anion Gap 18.0 POC BUN 15 BUN Creatinine POC Creatinine 0.7 Est Cr Clr Drug Dosing Est GFR ( Amer) Est GFR (Non-Af Amer) BUN/Creatinine Ratio Glucose POC Glucose POC Glucose (other) 200 H Estimat Average Glucose 160 Hemoglobin A1c 7.2 H Calcium POC Ioniz Calcium Ralph 1.14 Magnesium Total Bilirubin AST ALT Alkaline Phosphatase Troponin I Total Protein Albumin Globulin Albumin/Globulin Ratio Triglycerides Cholesterol LDL Cholesterol, Calc VLDL Cholesterol, Calc HDL Cholesterol Cholesterol/HDL Ratio Lipase TSH Urine Color Urine Appearance Urine pH Ur Specific [place] Urine Protein Urine Glucose (UA) Urine Ketones Urine Blood Urine Nitrite Urine Bilirubin Urine Urobilinogen Ur Leukocyte Esterase Urine WBC (Auto) Urine RBC (Auto) U Hyaline Cast (Auto) U Epithel Cells (Auto) Urine Bacteria (Auto) Salicylates Urine Opiates Screen Ur Methadone, Qual Acetaminophen Urine Barbiturates Ur Phencyclidine (PCP) U Amphetamin/Meth Scrn MDMA (Ecstasy) Screen U OH-Alprazolam Confrm U Benzodiazepines Scrn 7-Amino Clonazepam Ur Nordiazepam Confirm U OH-ethylflurazepam U Lorazepam Cnf GC/MS U Oxazepam Confm GC/MS Ur Temazepam Confirm U OH-Triazolam Confirm U OH-Midazolam Confirm Ur Cocaine Metabolite U Marijuana (THC) Screen Ethyl Alcohol mg/dL < 3.0 07/19/19 07/19/19 07/19/19 00:13 00:13 00:13 WBC RBC Hgb POC Hgb Hct POC Hct MCV MCH MCHC RDW Std Deviation RDW Coeff of Tyron Plt Count MPV Immature Gran % (Auto) Neut % (Auto) Lymph % (Auto) [place] % (Auto) Eos % (Auto) Baso % (Auto) Immature Gran # (Auto) Neut # (Auto) Lymph # (Auto) [place] # (Auto) Eos # (Auto) Baso # (Auto) PT INR APTT PTT Ratio POC Sodium Sodium POC Potassium Potassium POC Chloride Chloride Carbon Dioxide POC Total CO2 Anion Gap POC Anion Gap POC BUN BUN Creatinine POC Creatinine Est Cr Clr Drug Dosing Est GFR ( Amer) Est GFR (Non-Af Amer) BUN/Creatinine Ratio Glucose POC Glucose POC Glucose (other) Estimat Average Glucose Hemoglobin A1c Calcium POC Ioniz Calcium Ralph Magnesium Total Bilirubin AST ALT Alkaline Phosphatase Troponin I Total Protein Albumin Globulin Albumin/Globulin Ratio Triglycerides Cholesterol LDL Cholesterol, Calc VLDL Cholesterol, Calc HDL Cholesterol Cholesterol/HDL Ratio Lipase TSH Urine Color Yellow Urine Appearance Clear Urine pH 5.0 Ur Specific [place] 1.029 Urine Protein 1+ H Urine Glucose (UA) 2+ H Urine Ketones Negative Urine Blood Negative Urine Nitrite Negative Urine Bilirubin Negative Urine Urobilinogen Negative Ur Leukocyte Esterase Negative Urine WBC (Auto) 1-5 Urine RBC (Auto) 0-4 U Hyaline Cast (Auto) 5-10 H U Epithel Cells (Auto) 5-10 H Urine Bacteria (Auto) Negative Salicylates Urine Opiates Screen Neg Ur Methadone, Qual Neg Acetaminophen Urine Barbiturates Neg Ur Phencyclidine (PCP) Neg U Amphetamin/Meth Scrn Neg MDMA (Ecstasy) Screen Neg U OH-Alprazolam Confrm Pending U Benzodiazepines Scrn Pos H 7-Amino Clonazepam Pending Ur Nordiazepam Confirm Pending U OH-ethylflurazepam Pending U Lorazepam Cnf GC/MS Pending U Oxazepam Confm GC/MS Pending Ur Temazepam Confirm Pending U OH-Triazolam Confirm Pending U OH-Midazolam Confirm Pending Ur Cocaine Metabolite Neg U Marijuana (THC) Screen Neg Ethyl Alcohol mg/dL 07/19/19 07/19/19 07/19/19 01:22 02:09 02:09 WBC 8.26 RBC 4.86 Hgb 15.4 POC Hgb Hct 44.7 POC Hct MCV 92.0 MCH 31.7 MCHC 34.5 RDW Std Deviation 43.4 RDW Coeff of Tyron 13.0 Plt Count 268 MPV 9.5 Immature Gran % (Auto) 0.7 Neut % (Auto) 53.5 Lymph % (Auto) 35.1 [place] % (Auto) 7.4 Eos % (Auto) 2.7 Baso % (Auto) 0.6 Immature Gran # (Auto) 0.06 H Neut # (Auto) 4.42 Lymph # (Auto) 2.90 [place] # (Auto) 0.61 H Eos # (Auto) 0.22 Baso # (Auto) 0.05 PT INR APTT 25.6 PTT Ratio 0.9 POC Sodium Sodium POC Potassium Potassium POC Chloride Chloride Carbon Dioxide POC Total CO2 Anion Gap POC Anion Gap POC BUN BUN Creatinine POC Creatinine Est Cr Clr Drug Dosing Est GFR ( Amer) Est GFR (Non-Af Amer) BUN/Creatinine Ratio Glucose POC Glucose 237 H POC Glucose (other) Estimat Average Glucose Hemoglobin A1c Calcium POC Ioniz Calcium Ralph Magnesium Total Bilirubin AST ALT Alkaline Phosphatase Troponin I Total Protein Albumin Globulin Albumin/Globulin Ratio Triglycerides Cholesterol LDL Cholesterol, Calc VLDL Cholesterol, Calc HDL Cholesterol Cholesterol/HDL Ratio Lipase TSH Urine Color Urine Appearance Urine pH Ur Specific [place] Urine Protein Urine Glucose (UA) Urine Ketones Urine Blood Urine Nitrite Urine Bilirubin Urine Urobilinogen Ur Leukocyte Esterase Urine WBC (Auto) Urine RBC (Auto) U Hyaline Cast (Auto) U Epithel Cells (Auto) Urine Bacteria (Auto) Salicylates Urine Opiates Screen Ur Methadone, Qual Acetaminophen Urine Barbiturates Ur Phencyclidine (PCP) U Amphetamin/Meth Scrn MDMA (Ecstasy) Screen U OH-Alprazolam Confrm U Benzodiazepines Scrn 7-Amino Clonazepam Ur Nordiazepam Confirm U OH-ethylflurazepam U Lorazepam Cnf GC/MS U Oxazepam Confm GC/MS Ur Temazepam Confirm U OH-Triazolam Confirm U OH-Midazolam Confirm Ur Cocaine Metabolite U Marijuana (THC) Screen Ethyl Alcohol mg/dL 07/19/19 07/19/19 07/19/19 02:09 07:41 07:52 WBC RBC Hgb POC Hgb Hct POC Hct MCV MCH MCHC RDW Std Deviation RDW Coeff of Tyron Plt Count MPV Immature Gran % (Auto) Neut % (Auto) Lymph % (Auto) [place] % (Auto) Eos % (Auto) Baso % (Auto) Immature Gran # (Auto) Neut # (Auto) Lymph # (Auto) [place] # (Auto) Eos # (Auto) Baso # (Auto) PT INR APTT PTT Ratio POC Sodium Sodium 140 POC Potassium Potassium 3.7 POC Chloride Chloride 106 Carbon Dioxide 29 POC Total CO2 Anion Gap 5.0 POC Anion Gap POC BUN BUN 17 Creatinine 0.75 POC Creatinine Est Cr Clr Drug Dosing 172.3 Est GFR ( Amer) 131.1 Est GFR (Non-Af Amer) 113.1 BUN/Creatinine Ratio 22.9 H Glucose 215 H POC Glucose 152 H POC Glucose (other) Estimat Average Glucose Hemoglobin A1c Calcium 8.3 L POC Ioniz Calcium Ralph Magnesium Total Bilirubin AST ALT Alkaline Phosphatase Troponin I 0.153 H* 0.114 H* Total Protein Albumin Globulin Albumin/Globulin Ratio Triglycerides 218 H Cholesterol 286 H LDL Cholesterol, Calc 207 VLDL Cholesterol, Calc 44 HDL Cholesterol 35 Cholesterol/HDL Ratio 8 Lipase TSH Urine Color Urine Appearance Urine pH Ur Specific [place] Urine Protein Urine Glucose (UA) Urine Ketones Urine Blood Urine Nitrite Urine Bilirubin Urine Urobilinogen Ur Leukocyte Esterase Urine WBC (Auto) Urine RBC (Auto) U Hyaline Cast (Auto) U Epithel Cells (Auto) Urine Bacteria (Auto) Salicylates Urine Opiates Screen Ur Methadone, Qual Acetaminophen Urine Barbiturates Ur Phencyclidine (PCP) U Amphetamin/Meth Scrn MDMA (Ecstasy) Screen U OH-Alprazolam Confrm U Benzodiazepines Scrn 7-Amino Clonazepam Ur Nordiazepam Confirm U OH-ethylflurazepam U Lorazepam Cnf GC/MS U Oxazepam Confm GC/MS Ur Temazepam Confirm U OH-Triazolam Confirm U OH-Midazolam Confirm Ur Cocaine Metabolite U Marijuana (THC) Screen Ethyl Alcohol mg/dL 07/19/19 09:19 WBC RBC Hgb POC Hgb Hct POC Hct MCV MCH MCHC RDW Std Deviation RDW Coeff of Tyron Plt Count MPV Immature Gran % (Auto) Neut % (Auto) Lymph % (Auto) [place] % (Auto) Eos % (Auto) Baso % (Auto) Immature Gran # (Auto) Neut # (Auto) Lymph # (Auto) [place] # (Auto) Eos # (Auto) Baso # (Auto) PT INR APTT 29.9 PTT Ratio 1.1 POC Sodium Sodium POC Potassium Potassium POC Chloride Chloride Carbon Dioxide POC Total CO2 Anion Gap POC Anion Gap POC BUN BUN Creatinine POC Creatinine Est Cr Clr Drug Dosing Est GFR ( Amer) Est GFR (Non-Af Amer) BUN/Creatinine Ratio Glucose POC Glucose POC Glucose (other) Estimat Average Glucose Hemoglobin A1c Calcium POC Ioniz Calcium Ralph Magnesium Total Bilirubin AST ALT Alkaline Phosphatase Troponin I Total Protein Albumin Globulin Albumin/Globulin Ratio Triglycerides Cholesterol LDL Cholesterol, Calc VLDL Cholesterol, Calc HDL Cholesterol Cholesterol/HDL Ratio Lipase TSH Urine Color Urine Appearance Urine pH Ur Specific [place] Urine Protein Urine Glucose (UA) Urine Ketones Urine Blood Urine Nitrite Urine Bilirubin Urine Urobilinogen Ur Leukocyte Esterase Urine WBC (Auto) Urine RBC (Auto) U Hyaline Cast (Auto) U Epithel Cells (Auto) Urine Bacteria (Auto) Salicylates Urine Opiates Screen Ur Methadone, Qual Acetaminophen Urine Barbiturates Ur Phencyclidine (PCP) U Amphetamin/Meth Scrn MDMA (Ecstasy) Screen U OH-Alprazolam Confrm U Benzodiazepines Scrn 7-Amino Clonazepam Ur Nordiazepam Confirm U OH-ethylflurazepam U Lorazepam Cnf GC/MS U Oxazepam Confm GC/MS Ur Temazepam Confirm U OH-Triazolam Confirm U OH-Midazolam Confirm Ur Cocaine Metabolite U Marijuana (THC) Screen Ethyl Alcohol mg/dL Diagnostic Findings Echocardiogram March 2018 The primary indication after review was deemed appropriate and the examination was performed. Normal LV chamber size with moderate concentric LVH. Low normal LV systolic function without regional wall motion abnormality, EF 5055%. Grade I diastolic dysfunction. There is an aortic valve bioprosthetic present. The aortic valve prosthesis systolic gradients are are borderline elevated and are indeterminate for obstruction. Significant aortic valve prosthesis regurgitation is absent. Mild left atrial enlargement. (1) Benzodiazepine overdose Encounter type: initial encounter Injury intent: intentional self-harm Qualified Code(s): T42.4X2A - Poisoning by benzodiazepines, intentional self- harm, initial encounter
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
--- NOTE | 2019-07-19 15:34 | Hospitalist Progress Note ---
Date of Service July 19, 2019 Assessment & Plan (1) Benzodiazepine overdose: Intentional overdose. Poison control recommends supportive care. Patient is lethargic this morning. Continue to monitor and avoid narcotics or other sedatives. Urine tox screen. (2) Suicide attempt: 302 petition on chart per psychiatry. Pt is not allowed to leave facility AMA. Will plan for inpatient treatment once medically cleared, which will not happen today. (3) Hx of aortic valve replacement: Echo today reveals bioprosthesis gradients that are similar to last echo on file. (4) Elevated troponin: Per Cardiology, etiology includes but not limited to chronic troponin elevation, NSTEMI or demand ischemia. Cont heparin drip for an additional 24 hours. Cont current medications including ASA 81, Lipitor 80mg, Coreg 12.5mg BID, Lisinopril 20mg. (5) Cardiomyopathy: EF slightly depressed to 35% on echo today. Cont medications above and spironolactone. Daily lasix was held on admission. (6) DM type 2 (diabetes mellitus, type 2): At goal, cont ISS with glargine while hospitalized. (7) DVT prophylaxis: heparin drip Full Code Dispo- to inpatient mental health unit once medically stable. Chanda Lutz DO [facility] Hospitalist Subjective 43-year-old man with a significant benzodiazepine overdose as a suicide attempt triggered by financial stressors presented to the hospital brought in by a friend. Psychiatry has seen him in there is a 302 petition on the chart, so he should not be allowed to leave AMA. He has told psychiatry that he will sign a voluntary commitment when he is medically cleared, however, he is very lethargic and fatigued at this time. He cannot carry on a conversation with me. He continues to give 1 word answers and fall asleep. Serial cardiac enzymes reveal 0.126, 0.53, 0.114 overnight. He was seen by cardiology who doubts ACS but is continuing heparin for an additional 24 hours. Echocardiogram reveals depressed ejection fraction is 35% with aortic valve prosthesis gradients moderately elevated though consistent with past studies. Review of Systems Review of Systems: Unobtainable due to cognitive status Physical Exam Physical Exam: CONSTITUTIONAL: obese, vitals as above, generally well- appearing, fatigued but easily arousable. EYES: EOMI bilaterally, PERRL, normal conjunctivae, no scleral icterus, R eye skin with chronic loss of pigment. ENT: MMM RESPIRATORY: clear to auscultation bilaterally, no crackles, rales or wheezes, normal respiratory effort CARDIOVASCULAR: regular rate and rhythm, S1 and 2 heard without murmurs, gallops or rubs, no JVD, no peripheral edema GASTROINTESTINAL: normal bowel sounds, soft, nontender, nondistended MUSCULOSKELETAL: strength 5/5 throughout, head is normocephalic and atraumatic SKIN: warm and dry NEUROLOGIC: CN 2-12 grossly intact, no sensory deficit, normal cognition, normal speech, no tremor, no gross focal deficits. PSYCHIATRIC: alert cooperative and oriented to person, place and time. Results & Data Vital Signs (Past 12 Hours) Vital Signs Temp Pulse Pulse Pulse Resp BP Pulse Ox 07/19/19 15:27 85 07/19/19 15:04 85 07/19/19 15:00 37 C 85 18 112/75 97 07/19/19 10:57 36.3 C L 82 20 131/85 96 07/19/19 08:00 89 07/19/19 07:08 36.4 C L 93 H 20 136/78 96 Laboratory Results Short CBC 07/18/19 07/19/19 Range/Units 22:03 02:09 WBC 8.65 8.26 (4.8-10.8) K/uL Hgb 17.2 15.4 (14.0-18.0) g/dL Hct 48.7 44.7 (42-52) % Plt Count 295 268 (130-400) K/uL BMP 07/18/19 07/19/19 22:03 02:09 Sodium 140 140 Potassium 3.7 3.7 Chloride 106 106 Carbon Dioxide 29 29 BUN 14 17 Creatinine 0.75 0.75 Glucose 197 H 215 H Calcium 8.7 8.3 L Cardiac Enzymes 07/18/19 07/19/19 07/19/19 Range/Units 22:03 02:09 07:52 Troponin I 0.126 H* 0.153 H* 0.114 H* (0-0.045) ng/ml Liver Function 07/18/19 Range/Units 22:03 Total Bilirubin 0.3 (0.2-1) mg/dl AST 9 L (15-37) U/L ALT 19 (12-78) U/L Alkaline Phosphatase 126 H (45-117) U/L Albumin 3.1 L (3.4-5.0) gm/dl Urine 07/19/19 Range/Units 00:13 Urine Color Yellow Urine Appearance Clear (Clear) Urine pH 5.0 (4.5-7.5) Ur Specific [place] 1.029 (1.000-1.030) Urine Protein 1+ H (Negative) Urine Glucose (UA) 2+ H (Negative) Medications Administered Current Inpatient Medications Acetaminophen (Tylenol) 650 mg PO Q4H PRN PRN Reason: Pain or Fever Stop: 08/18/19 01:16 Aspirin (Ecotrin Ectab) 81 mg PO DAILY [facility] Stop: 08/18/19 08:59 Last Admin: 07/19/19 07:44 Dose: 81 mg Documented by: Atorvastatin Calcium (Lipitor) 80 mg PO DAILY [facility] Stop: 08/18/19 08:59 Last Admin: 07/19/19 07:43 Dose: 80 mg Documented by: Carvedilol (Coreg) 12.5 mg PO BID [facility] Stop: 08/18/19 08:59 Last Admin: 07/19/19 07:43 Dose: 12.5 mg Documented by: Dextrose (Dextrose 50%) 25 - 50 ml IV UD PRN; Protocol PRN Reason: Hypoglycemia Protocol Stop: 08/18/19 01:16 Escitalopram Oxalate (Lexapro Tab) 20 mg PO DAILY [facility] Stop: 08/18/19 08:59 Last Admin: 07/19/19 07:44 Dose: 20 mg Documented by: Glucagon (Glucagen) 1 mg SQ UD PRN; Protocol PRN Reason: Hypoglycemia Protocol Stop: 08/18/19 01:16 Glucose (Glucose 40%) 15 - 30 gm PO UD PRN; Protocol PRN Reason: Hypoglycemia Protocol Stop: 08/18/19 01:16 Glucose (Dex4 Glucose) 4 - 8 tabs PO UD PRN; Protocol PRN Reason: Hypoglycemia Protocol Stop: 08/18/19 01:16 Promethazine HCl 12.5 mg/ (Sodium Chloride) 50.5 mls @ 202 mls/hr IV Q6H PRN PRN Reason: Nausea And Vomiting Stop: 08/18/19 01:16 Heparin Sodium/Dextrose (Heparin Sodium/Dextrose) 25,000 units in 500 mls @ 42 mls/hr IV .[id number] [facility]; Protocol Stop: 08/18/19 02:59 Last Titration: 07/19/19 10:43 Dose: 2,100 units/hr, 42 mls/hr Documented by: Insulin Aspart (Novolog Flexpen) 0 units SC ACHS [facility] Stop: 08/18/19 01:59 Last Admin: 07/19/19 12:17 Dose: 5 units Documented by: Insulin Glargine (Lantus Solostar Pen) 5 units SQ DAILY [facility] Stop: 08/19/19 08:59 Last Admin: 07/19/19 07:45 Dose: 5 units Documented by: Ioversol (Optiray 320 125ml) 120 ml IV ONCE PRN PRN Reason: Interaction Checking Stop: 07/23/19 00:45 Last Admin: 07/19/19 00:46 Dose: 120 ml Documented by: Lisinopril (Zestril) 20 mg PO DAILY [facility] Stop: 08/18/19 08:59 Last Admin: 07/19/19 07:44 Dose: 20 mg Documented by: Miscellaneous (Carbohydrates For Hypoglycemia) 15 - 30 gm PO UD PRN PRN Reason: Hypoglycemia Treatment Stop: 08/18/19 01:16 Nitroglycerin (Nitrostat) 0.4 mg SL PRN PRN PRN Reason: Chest Pain Stop: 08/18/19 01:58 Spironolactone (Aldactone) 12.5 mg PO DAILY [facility] Stop: 08/18/19 08:59 Last Admin: 07/19/19 07:44 Dose: 12.5 mg Documented by: Topiramate (Topamax) 50 mg PO BID [facility] Stop: 08/18/19 08:59 Last Admin: 07/19/19 07:44 Dose: 50 mg Documented by: Tramadol HCl (Ultram) 25 mg PO Q4H PRN PRN Reason: Pain Stop: 08/18/19 01:16 ECG Additional Comments: SR, TWI in lateral leads. (1) Benzodiazepine overdose Encounter type: initial encounter Injury intent: intentional self-harm Qualified Code(s): T42.4X2A - Poisoning by benzodiazepines, intentional self- harm, initial encounter
[2019-07-19 19:11] LABS: Partial Thromboplastin Ratio 1.4; Partial Thromboplastin Time 38.9 Seconds (21.0-31.0)
[2019-07-20 02:20] LABS: Partial Thromboplastin Ratio 2.8
[2019-07-20 02:24] LABS: Partial Thromboplastin Time 75.4 Seconds (21.0-31.0)
[2019-07-20 03:57] VITALS: O2SAT 95
[2019-07-20] MEDS: HEPARIN SODIUM/DEXTROSE 25,000 UNITS/500 ML BAG IV SCH (04:28)
[2019-07-20 07:07] VITALS: PULSE 83; TEMP 97.9
[2019-07-20] MEDS: TOPIRAMATE 50 MG TAB PO SCH (07:54)
[2019-07-20] MEDS: ESCITALOPRAM OXALATE 20 MG TAB PO SCH (07:54)
[2019-07-20] MEDS: ATORVASTATIN 40 MG TAB PO SCH (07:54)
[2019-07-20] MEDS: LISINOPRIL 20 MG TAB PO SCH (07:54)
[2019-07-20] MEDS: SPIRONOLACTONE 25 MG TAB PO SCH (07:54)
[2019-07-20] MEDS: carvediloL 12.5 MG TAB PO SCH (07:55)
[2019-07-20] MEDS: INSULIN ASPART 100 UNITS/ML 3 ML PEN SC SCH (07:55)
[2019-07-20] MEDS: ASPIRIN 81 MG ECTAB PO SCH (07:55)
[2019-07-20 08:40] LABS: Hematocrit (blood only) 44.7 % (42-52); Hemoglobin 15.7 g/dL (14.0-18.0); Mean Corpuscular Hemoglobin 32.7 pg (25-34); Mean Corpuscular Hgb Conc 35.1 g/dL (32-36); Mean Corpuscular Volume 93.1 fL (80-100); Mean Platelet Volume 9.5 fL (7.4-10.4); Platelet Count 270 K/uL (130-400); White Blood Count 9.66 K/uL (4.8-10.8)
[2019-07-20 09:00] LABS: Partial Thromboplastin Ratio 2.2
[2019-07-20] MEDS ORDERED: INSULIN GLARGINE SOLOSTAR 100 UNITS/ML 3 ML PEN SQ SCH (09:00)
[2019-07-20 09:05] LABS: BUN Creatinine Ratio 15.1 (10-20); Calcium 8.7 mg/dl (8.5-10.1); Creatinine Clr Calc Pharmacy 165.7 ml/min; Est GFR (Non-African American) 111.3; Potassium 4.1 mmol/L (3.5-5.1)
[2019-07-20 09:06] LABS: Partial Thromboplastin Time 58.7 Seconds (21.0-31.0)
--- NOTE | 2019-07-20 09:42 | Cardiology Progress Note ---
Date of Service July 20, 2019 Assessment & Plan (1) Elevated troponin: Patient admitted with acute and deliberate benzodiazepine overdose. Troponins are elevated however clinical course does not suggest an acute coronary syndrome. Question due to chronic elevation versus acute demand based ischemia Ejection fraction current echocardiogram is slightly less than on last testing though medical compliance recently uncertain. Lipids very elevated Patient examined and all studies reviewed. No evidence of acute coronary syndrome. Noted with mild decline in ejection fraction likely reflects lack of medications patient openly admitting not taking medications recently as reflected in significant elevation in lipids as well. Plan discontinue IV heparin continue current medication orders. Patient will require outpatient follow-up after release with cardiology as moderate valve prosthesis mismatch is present (2) Precordial chest pain: No further events (3) Benzodiazepine overdose: (4) Cardiomyopathy: (5) Hx of aortic valve replacement: As noted above there is moderate elevation in valve prosthesis velocities reflective of moderate valve prosthesis mismatch. Question whether this is cont ributing to chronic symptoms no acute issues currently Will require outpatient follow-up Continue previously prescribed prescription Subjective Patient seen and examined, chart, medications, telemetry reviewed. No chest pains overnight no acute complaints. Blood pressures heart rate much improved Physical Exam Constitutional: WD/WN, vitals as above + obese Eyes: PERRL, conjunctivae normal, anicteric sclerae Neck: trachea midline, no thyromegaly + thick neck Respiratory: normal respiratory effort, lungs clear to auscultation Cardiovascular: Rate/Rhythm: regular rate and regular rhythm Heart Sounds: + murmur (Grade 2/6 systolic no diastolic); no cardiac rub Extremities: no edema Gastrointestinal (Abdomen): normal bowel sounds, soft, nontender, no hepatosplenomegaly Musculoskeletal: no cyanosis or clubbing, extremities motor strength 5/5 Results & Data Vital Signs (Past 12 Hours) Vital Signs Temp Pulse Pulse Resp BP BP Pulse Ox 07/20/19 07:06 36.6 C 83 18 101/64 95 07/20/19 03:55 37.0 C 89 19 103/67 95 07/20/19 00:50 88 07/19/19 23:03 36.9 C 86 20 116/68 94 Laboratory Results Laboratory Results - last 24 hr 07/19/19 07/19/19 07/19/19 09:19 11:46 16:50 WBC RBC Hgb Hct MCV MCH MCHC RDW Std Deviation RDW Coeff of Tyron Plt Count MPV APTT 29.9 PTT Ratio 1.1 Sodium Potassium Chloride Carbon Dioxide Anion Gap BUN Creatinine Est Cr Clr Drug Dosing Est GFR ( Amer) Est GFR (Non-Af Amer) BUN/Creatinine Ratio Glucose POC Glucose 176 H 116 H Calcium 07/19/19 07/19/19 07/20/19 18:50 20:01 01:40 WBC RBC Hgb Hct MCV MCH MCHC RDW Std Deviation RDW Coeff of Tyron Plt Count MPV APTT 38.9 H 75.4 H* PTT Ratio 1.4 2.8 Sodium Potassium Chloride Carbon Dioxide Anion Gap BUN Creatinine Est Cr Clr Drug Dosing Est GFR ( Amer) Est GFR (Non-Af Amer) BUN/Creatinine Ratio Glucose POC Glucose 169 H Calcium 07/20/19 07/20/19 07/20/19 07:45 08:27 08:27 WBC 9.66 RBC 4.80 Hgb 15.7 Hct 44.7 MCV 93.1 MCH 32.7 MCHC 35.1 RDW Std Deviation 44.0 RDW Coeff of Tyron 13.0 Plt Count 270 MPV 9.5 APTT PTT Ratio Sodium 140 Potassium 4.1 Chloride 106 Carbon Dioxide 30 Anion Gap 4.0 BUN 12 Creatinine 0.78 Est Cr Clr Drug Dosing 165.7 Est GFR ( Amer) 129.0 Est GFR (Non-Af Amer) 111.3 BUN/Creatinine Ratio 15.1 Glucose 215 H POC Glucose 146 H Calcium 8.7 07/20/19 08:27 WBC RBC Hgb Hct MCV MCH MCHC RDW Std Deviation RDW Coeff of Tyron Plt Count MPV APTT 58.7 H* PTT Ratio 2.2 Sodium Potassium Chloride Carbon Dioxide Anion Gap BUN Creatinine Est Cr Clr Drug Dosing Est GFR ( Amer) Est GFR (Non-Af Amer) BUN/Creatinine Ratio Glucose POC Glucose Calcium (1) Benzodiazepine overdose Encounter type: initial encounter Injury intent: intentional self-harm Qualified Code(s): T42.4X2A - Poisoning by benzodiazepines, intentional self- harm, initial encounter
--- NOTE | 2019-07-20 10:30 | Discharge Summary ---
Date of Service July 20, 2019 Admission HPI Per Admitting Provider History obtained from patient, family, and records. Medical history significant for chronic diastolic heart failure (EF 50 to 55%, TTE 2018), hx non-ischemic cardiomyopathy as per records, hypertension, aortic stenosis/aortic regurgitation status post bioprosthetic AVR (2015), DM2 on oral meds, ongoing tobacco abuse,SERENITY on CPAP, vitiligo. Recent confinement April 2018 under General Surgery service for abdominal wound seroma status post drainage. As per patient, he has been sad and frustrated following confinement. Tired of health problems. Denies suicidality. Not sleeping well. Today, patient took 30 Klonopin tablets and 4 Xanax tablets (another friend's prescription) so he could fall asleep. Subsequently noted to be drowsy by family. At the ER, patient complained of achy headache, pleuritic chest pain with shortness of breath, achy generalized abdominal discomfort with nausea, no emesis. Good bowel movement. Chest pain not immediately relieved by nitroglycerin given at the ER. Patient stated that "he does not care" when directly queried by ER physician if he wanted to . 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 Admission Exam Per Admitting Provider ENERAL: Comfortable, episodic lethargy, no respiratory distress, obese, looks older than stated age SKIN: Normal color, warm HEENT: [place] palpebral conjunctivae, both eyelids intermittently droopy during encounter, chronic hypopigmentation right upper lid, dry buccal mucosa NECK : Supple, short neck, no tenderness CHEST : Decreased breath sounds, sternal tenderness HEART : RRR, systolic murmur ABDOMEN: Some distention, nontender EXTREMITIES : Bilateral LE swelling, minimal LE tenderness, no other conspicuous deformities noted NEUROLOGIC : Coherent, episodic lethargy, no facial asymmetry, no other gross focality Principal Diagnosis Intentional benzodiazepine overdose Elevated troponin Discharge Data Allergies Allergy/AdvReac Type Severity Reaction Status Date / Time No Known Allergies Allergy Verified 07/18/19 22:47 Consultations 07/18/19 22:57 ED Decision to Admit Stat 07/19/19 01:14 Consult Behavioral Health Liaison Routine 07/19/19 01:17 Consult Case Management - Discharge Planning Routine Consult Psychiatry Routine 07/19/19 02:58 Consult Cardiology Routine Ordered Studies 07/18/19 23:41 CT abd pelvis IV con only Urgent CT angio chest PE protocol Urgent 07/18/19 23:42 CT head/brain wo con Urgent Hospital Course (1) Benzodiazepine overdose: (2) Suicide attempt: (3) Hx of aortic valve replacement: (4) Elevated troponin: (5) Cardiomyopathy: (6) DM type 2 (diabetes mellitus, type 2): 43-year-old man admitted to the hospitalist service with acute and deliberate benzodiazepine overdose. Troponin was mildly elevated and cardiology was consulted. He was placed on a heparin drip empirically for presumed NSTEMI. This was not consistent with acute coronary syndrome, per their evaluation. An echo was performed revealing ejection fraction slightly less than on last testing which was thought secondary to medical noncompliance. This was objectively noted as his lipids were very elevated, and he admitted to noncompliance with cholesterol medication. His aortic valve prosthesis gradients were moderately elevated though consistent with past studies. Recommendation was made to resume usual cardiac medications while on telemetry and continue IV heparin which had been initially started, for an additional 24 hours. He continued to have some fatigue related to benzodiazepine overdose, and this was treated with supportive care. Per psychiatry, he qualified for inpatient psychiatric treatment and he volunteered for this ultimately. At time of discharge a [id number] examination was performed revealing hemodynamically stable and afebrile patient in no acute distress. Aside from obesity, physical exam was unremarkable with a normal heart exam with S1/S2 heard and no murmurs, gallops or rubs. No peripheral edema was seen and no JVD was seen. Patient appeared euvolemic and compensated. Lungs were also clear to auscultation bilaterally without evidence of crackles, rales or wheezes and he had a normal respiratory effort. Neurologically he demonstrated normal cognition with no gross focal deficits. Intravenous heparin was discontinued prior to discharge, and he notably had no events on telemetry or recurrent precordial chest pain during the rest of his hospitalization. He will require outpatient follow-up with cardiology to discuss his valve prosthesis nonurgently. This was thought to potentially be contributing to chronic symptoms of recurrent chest pain in recent months due to gradient mismatch. He was discharged in stable condition to the inpatient psychiatric care facility. Close primary care follow-up was recommended after discharge. Total Time Total Time Spent Total Time Spent (In Minutes): 60 Total Time Includes: Examination of the Patient, Discharge Planning, Medication Reconciliation and Communication With Other Providers Discharge Plan Discharge Items Patient Disposition: Transfer Behavioral Health Fac Reason For Visit: CP, OVERDOSE Discharge Diagnosis: Intentional benzodiazepine overdose Elevated troponin Condition: Good Discharge Goals: Therapeutic intervention Activity: Resume your previous activity Non-emergency contact: Primary Care Provider and Supervisor Shipping Call non-emergency contact if: you have any medication questions, your symptoms worsen, your pain is not controlled, your pain is worsening, your pain is unusual for you, your pain is concerning for you and you have a fever Follow-up/Referrals: Gabriela Ayon DO [Primary Care Provider] - Juve Espinoza DO [Supervisor Shipping] - Diet: Carb Consistent or DM2 and Heart Healthy Addtl Provider Instructions: Please take all medications as instructed below. You will need to follow-up with [facility] within 4-6 weeks after hospital discharge for re-evaluation of your valve and heart function. Please comply with taking all medications as prescribed to optimize heart function. It was a pleasure taking care of you! Please call if you have any questions or problems. You can reach a [facility] hospitalist on duty at [facility] 24 hours a day by calling [phone]. Take care of yourself. Chanda Lutz DO [facility] Hospitalist Prescriptions: Continued atorvastatin 80 mg Tablet 80 mg PO DAILY RF: 0 lisinopril 20 mg tablet 20 mg PO DAILY RF: 0 aspirin 81 mg Tablet,Delayed Release (Dr/Ec) 81 mg PO DAILY RF: 0 calcipotriene 0.005 % cream 1 applic topical BID RF: 0 furosemide 20 mg tablet 20 mg PO QAM RF: 0 glipizide 5 mg tablet 5 mg PO BID RF: 0 topiramate 50 mg Tablet 50 mg PO BID RF: 0 metformin 1,000 mg Tablet Extended Release 24hr 1,000 mg PO BID RF: 0 carvedilol [Coreg] 12.5 mg tablet 12.5 mg PO BID RF: 0 spironolactone [Aldactone] 25 mg tablet 12.5 mg PO DAILY RF: 0 tacrolimus 0.1 % Ointment 1 applic TOPICAL UD RF: 0 albuterol sulfate 90 mcg/actuation Hfa Aerosol Inhaler 2 puff INHALATION QID PRN (Reason: Shortness Of Breath Or Wheezing) RF: 0 escitalopram oxalate [Lexapro] 20 mg tablet 20 mg PO DAILY RF: 0 No Action nitroglycerin [Nitrostat] 0.4 mg Tablet, Sublingual 0.4 mg sublingual PRN Qty: 1 RF: 0 Stand-Alone Forms: [facility]/Other Patient Handouts: Suicide Warning Signs What Do, Suicide Warning Signs Self, Suicide Warning Signs Others Discharge Orders: Discharge Order (Routine); Ordered 07/20/19 Ordered By: Chanda Lutz Admission Data Admit Date/Time: 07/19/19 02:57 Attending Provider: Chanda Lutz Admit Provider: Manoj Prieto Primary Care Provider: Gabriela Ayon Other Providers: Manoj Prieto ; Yanelis Baltazar Michael G Service: Telemetry Other Interventions: Discharge Summary Assessment (RN) Last Done: 07/20/19 10:43 DC Date/Time DO NOT enter until pt leaves facility: 07/20/19 11:45
[2019-07-20 10:45] VITALS: BP 103/67
[2019-07-24 15:47] LABS: 7-Aminoclonaz, Confirm 593 NG/ML (CUTOFF=25); Hydro-Alp Ur, GC/MS NEGATIVE NG/ML (CUTOFF=25); Hydroxyethylflurazepam, Conf NEGATIVE NG/ML (CUTOFF=50); Hydroxytriazolam NEGATIVE NG/ML (CUTOFF=50); Lorazepam, Ur GC/MS NEGATIVE NG/ML (CUTOFF=50); Nordiazepam, Confirm NEGATIVE NG/ML (CUTOFF=50); Oxazepam Ur, GC/MS NEGATIVE NG/ML (CUTOFF=50); Temazepam, Confirm NEGATIVE NG/ML (CUTOFF=50)
== END 2019-07-20 11:45 | DRG 917 ==
LOC: 2S 21:45 → ED 21:45 → 2S 07-19 00:21

== ENCOUNTER 2019-07-20 11:53 | Inpatient (IN) ==
[2019-07-20] MEDS ORDERED: ACETAMINOPHEN 325 MG TAB PO PRN (12:33)
[2019-07-20] MEDS ORDERED: SODIUM CHLORIDE 0.65% NA SOLN 45 ML (OCEAN) PRN (12:33)
[2019-07-20] MEDS ORDERED: MAGNESIUM HYDROXIDE SUSP 30 ML UDC PO PRN (12:33)
[2019-07-20] MEDS ORDERED: BISMUTH SUBSALICYLATE PER ML OMNICELL CHARGE PO PRN (12:33)
[2019-07-20] MEDS ORDERED: ALUMINUM/MAGNESIUM SUSP 30 ML UDC PO PRN (12:33)
[2019-07-20] MEDS ORDERED: ALBUTEROL HFA 8 GM INHALER INH PRN (13:01)
[2019-07-20] MEDS ORDERED: NITROGLYCERIN SL 0.4 MG/TAB TAB SL PRN (13:04)
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
[2019-07-20] MEDS: glipiZIDE 5 MG TAB PO SCH (17:09)
[2019-07-20] MEDS: TOPIRAMATE 50 MG TAB PO SCH (20:39)
[2019-07-20] MEDS: CARVEDILOL 12.5 MG TAB PO SCH (20:39)
[2019-07-21] MEDS: SPIRONOLACTONE 25 MG TAB PO SCH (07:52)
[2019-07-21] MEDS: CARVEDILOL 12.5 MG TAB PO SCH ×2 (07:53→20:58)
[2019-07-21] MEDS: ASPIRIN 81 MG ECTAB PO SCH (07:53)
[2019-07-21] MEDS: ESCITALOPRAM OXALATE 20 MG TAB PO SCH (07:54)
[2019-07-21] MEDS: glipiZIDE 5 MG TAB PO SCH ×2 (07:54→17:16)
[2019-07-21] MEDS: ATORVASTATIN 40 MG TAB PO SCH (07:54)
[2019-07-21] MEDS: FUROSEMIDE 20 MG TAB PO SCH (07:54)
[2019-07-21] MEDS: METFORMIN HCL 500 MG TAB PO SCH ×2 (07:55→17:19)
[2019-07-21] MEDS: LISINOPRIL 20 MG TAB PO SCH (07:55)
[2019-07-21] MEDS: TOPIRAMATE 50 MG TAB PO SCH ×2 (07:55→20:59)
--- NOTE | 2019-07-21 10:39 | Psychiatric Progress Note ---
Date of Service July 21, 2019 Impression / Recommendations Impression 43 yo male s/p significant benzodiazepine OD, particularly given his underlying medication condition. (1) Depressive disorder: 07/20--The patient was admitted to the [facility] ([facility] mental health unit) on q15 min checks (behavioral with suicide precautions) for safety. The patient will participate in group, recreational, and milieu therapies and will be offered additional individual and family sessions as clinically appropriate. Patient previously on 30 mg of Lexapro but I'm not currently comfortable with that dose given his recent cardiac issues. (2) Cardiomyopathy: 07/20--SL nitro prn CP. Discussed with Dr. Lutz prior to transfer. Cleared by cards, worsening of his cardiomyopathy felt to be related to poor compliance rather than acute cardiac event. Consult hospitalist prn. (3) Sleep apnea: 07/20 respiratory order for CPAP, MNPR. Inventory Assets Strengths: engaging, receptive to social work interventions Needs: mainly financial assistance Risk Factors Assessment Male: Yes Do You Have Access To A Gun?: No Health Problems: Yes Substance Use Disorders: No Previous Attempt: No Family History of Suicide: No Previous Psychiatric Hospitalization: No Protective Factors Assessment Stable Relationships: Yes Interval History Chief Complaint "I'm feeling better". Review of Systems Sleep Information Total Hours of Sleep: 8 Sleep Comments: used his c-pap till 0430 then did not want to use it anymore. because of his frequent changes of position in bed, the c-pap alarm would go off requiring staff to shut it off and if it alarmed again, he needed to be more fully awakened to adjust his mask and tightness. Meal Information Percent Meal Consumed - Lunch: 100 Percent Meal Consumed - Dinner: 100 Subjective Subjective Patient was seen & assessed and interval progress reviewed with nursing. Restless night of sleep, states that son no talking to him to not able to get CPAP from home, didn't like hospital mask. Reviewed that given his cardiac status I do not feel comfortable d/c it and would suggest retry. He denies depressive symptoms today. Reviewed his [place] application for eligibility for food stamps. Physical Exam Psychiatric Orientation: alert and oriented x 3 Apperance: appropriately groomed Eye Contact: good eye contact Motor Behavior: steady gait and station Speech: normal rate/rhythm/volume of speech Affect: + depressed affect Mood: + depressed mood Thought Process: clear/coherent thought process Thought Content: reality based without delusions Suicidal Thoughts: denies suicidal thoughts Homicidal Thoughts: denies homicidal thoughts Hallucinations: no auditory hallucinations and no visual hallucinations Cognition: attention grossly intact and language grossly intact Estimated Intelligence: average estimated intelligence Insight: + limited insight Judgement: + limited judgement Vital Signs (Past 24 Hours) Last Vital Signs Temp 36.3 C L 07/21/19 06:45 Pulse 80 07/21/19 06:46 Resp 22 07/21/19 06:45 BP 117/82 07/21/19 06:46 Pulse Ox 97 07/20/19 22:17 Results & Data Laboratory Results Laboratory Results - last 24 hr 07/21/19 07:24 POC Glucose 182 H Current Inpatient Medications Current Inpatient Medications: Current Inpatient Medications Acetaminophen (Tylenol) 650 mg PO Q4H PRN PRN Reason: Headache or Minor Fever Stop: 08/19/19 12:32 Al Hydrox/Mg Hydrox/Simethicone (Maalox) 30 ml PO Q4H PRN PRN Reason: GI Upset Stop: 08/19/19 12:32 Albuterol (Ventolin Hfa) 2 puffs INH QID PRN PRN Reason: Shortness Of Breath Or Wheezing Stop: 08/19/19 13:00 Aspirin (Ecotrin Ectab) 81 mg PO DAILY [facility] Stop: 08/20/19 08:59 Last Admin: 07/21/19 07:53 Dose: 81 mg Documented by: Atorvastatin Calcium (Lipitor) 80 mg PO DAILY [facility] Stop: 08/20/19 08:59 Last Admin: 07/21/19 07:54 Dose: 80 mg Documented by: Bismuth Subsalicylate (Kaopectate) 15 ml PO PRN PRN PRN Reason: Loose Stool Stop: 08/19/19 12:32 Carvedilol (Coreg) 12.5 mg PO BID [facility] Stop: 08/19/19 20:59 Last Admin: 07/21/19 07:53 Dose: 12.5 mg Documented by: Escitalopram Oxalate (Lexapro Tab) 20 mg PO DAILY [facility] Stop: 08/20/19 08:59 Last Admin: 07/21/19 07:54 Dose: 20 mg Documented by: Furosemide (Lasix) 20 mg PO QAM [facility] Stop: 08/20/19 08:59 Last Admin: 07/21/19 07:54 Dose: 20 mg Documented by: Glipizide (Glucotrol) 5 mg PO BIDM [facility] Stop: 08/19/19 17:44 Last Admin: 07/21/19 07:54 Dose: 5 mg Documented by: Hydroxyzine HCl (Vistaril) 25 mg PO Q4H PRN PRN Reason: Anxiety Stop: 08/19/19 12:32 Hydroxyzine HCl (Vistaril) 50 mg PO HSZ PRN PRN Reason: Insomnia Stop: 08/19/19 12:32 Lisinopril (Zestril) 20 mg PO DAILY [facility] Stop: 08/20/19 08:59 Last Admin: 07/21/19 07:55 Dose: 20 mg Documented by: Magnesium Hydroxide (Milk Of Magnesia) 30 ml PO DAILY PRN PRN Reason: Heartburn Stop: 08/19/19 12:32 Metformin HCl (Glucophage) 1,000 mg PO BIDM [facility] Stop: 08/20/19 17:44 Last Admin: 07/21/19 07:55 Dose: 1,000 mg Documented by: Miscellaneous (Order Awaiting Action) 1 ea N/A QS [facility] Stop: 08/19/19 15:59 Last Admin: 07/20/19 15:51 Dose: Not Given Documented by: Miscellaneous (Order Awaiting Action) 1 ea N/A QS [facility] Stop: 08/19/19 15:59 Last Admin: 07/20/19 15:51 Dose: Not Given Documented by: Nitroglycerin (Nitrostat) 0.4 mg SL PRN PRN PRN Reason: Chest Pain Stop: 08/19/19 13:03 Sodium Chloride ([place] Nasal) 1 - 2 sprays NA PRN PRN PRN Reason: Nasal Dryness/Congestion Stop: 08/19/19 12:32 Spironolactone (Aldactone) 12.5 mg PO DAILY [facility] Stop: 08/20/19 08:59 Last Admin: 07/21/19 07:52 Dose: 12.5 mg Documented by: Topiramate (Topamax) 50 mg PO BID [facility] Stop: 08/19/19 20:59 Last Admin: 07/21/19 07:55 Dose: 50 mg Documented by: Mental Health & Subst Abuse Tx Therapist Name of Therapist: Used to go to [facility] Injection Molding Process Technician Name of Injection Molding Process Technician: none Post Discharge Appointments Primary Care Physician Name Of Family Doctor: Jaja Barry CPT Code CPT Code 11724
[2019-07-22] MEDS: METFORMIN HCL 500 MG TAB PO SCH (08:28)
[2019-07-22] MEDS: ESCITALOPRAM OXALATE 20 MG TAB PO SCH (08:28)
[2019-07-22] MEDS: CARVEDILOL 12.5 MG TAB PO SCH (08:28)
[2019-07-22] MEDS: glipiZIDE 5 MG TAB PO SCH (08:28)
[2019-07-22] MEDS: FUROSEMIDE 20 MG TAB PO SCH (08:28)
[2019-07-22] MEDS: ATORVASTATIN 40 MG TAB PO SCH (08:28)
[2019-07-22] MEDS: SPIRONOLACTONE 25 MG TAB PO SCH (08:29)
[2019-07-22] MEDS: LISINOPRIL 20 MG TAB PO SCH (08:29)
[2019-07-22] MEDS: TOPIRAMATE 50 MG TAB PO SCH (08:29)
[2019-07-22] MEDS: ASPIRIN 81 MG ECTAB PO SCH (08:30)
--- NOTE | 2019-07-22 10:18 | Discharge Summary ---
Date of Service July 22, 2019 History of Present Illness As per consult on medical floor dated 07/19/19: Reported feeling hopeless when couldn't get food stamps. He states in general he has been lower energy since dx of cardiomyopathy a year ago. He is unsure why he takes Lexapro as feels his mood was good until his doctor's office didn't fill out his MA papers correctly. He doesn't sleep the best even with his CPAP. He states that when he found out he couldn't get food stamps he just "lost it all" and took a friend's prescription. He had called his ex for help and when came to bring him some food he became non-responsive in the car. Today (07/20/19) he reports chronically disrupted sleep despite CPAP and now reports he took the medication not as a suicide attempt but to "have fun". He doesn't particularly want to see an outpatient psychiatrist or therapist but is willing to meet with social work. He denies any history of magdaleno but admitted to nurse he used MJ heavily in the past. He states his weight and appetite have been stable. He enjoys talking to people but gets frustrated when can't work. He seems to minimize the severity of his cardiomyopathy which may in some ways be a protective defense mechanism. Physical Exam Psychiatric Orientation: alert and oriented x 3 Apperance: appropriately groomed Eye Contact: good eye contact Motor Behavior: steady gait and station Speech: normal rate/rhythm/volume of speech Mood: + depressed mood Thought Process: clear/coherent thought process Thought Content: reality based without delusions Suicidal Thoughts: denies suicidal thoughts Homicidal Thoughts: denies homicidal thoughts Hallucinations: no auditory hallucinations and no visual hallucinations Cognition: attention grossly intact and language grossly intact Estimated Intelligence: average estimated intelligence Vital Signs (Past 24 Hours) Last Vital Signs Temp 36.6 C 07/22/19 06:53 Pulse 79 07/22/19 06:53 Resp 20 07/22/19 06:53 BP 128/90 07/22/19 06:53 Pulse Ox 97 07/21/19 23:11 Principal Diagnosis major depressive disorder Psychiatric Data Cooperative on transfer from medical floor. Asssited patient with benefits paperwork in conjunction with social work. His Lexapro was continued at the 20 mg dose given medical co-morbidities. He became more receptive to outpatient therapy. He plans to return to work part-time. Son did not return his calls and he is accepting of this. Day of Discharge Assessment as above, affect is brighter, cooperative with CPAP last pm. He continues to deny SI and is hopeful re: his financial situation. Shared story about his bypass and correction of cardiac defect and is happy to be alive. He verbalized safety plan and is psychiatrically stable for discharge. Transition of Care Transition Of Care Record: was reviewed with the patient Advance Directives Advance Directives Information Provided: No Advance Directives: No Mental Health Advance Directive: No Advance Directives on File: No Living Will: No Power of Fiscal Technician: No Advance Directives Reason:: Declines as Mental Health Visit. Risk Factors Assessment Male: Yes Do You Have Access To A Gun?: No Health Problems: Yes Substance Use Disorders: No Previous Attempt: No Family History of Suicide: No Previous Psychiatric Hospitalization: No Protective Factors Assessment Stable Relationships: Yes Tobacco Cessation at Discharge Tobacco Cessation Medication Prescribed at Discharge: Not Applicable/Non-Smoker Total Time Total Time Spent: Greater Than 30 Minutes Total Time Includes: Examination of the patient, Discharge Planning and Medication Reconciliation Discharge Data Lab Results 07/21/19 07/22/19 07:24 08:25 POC Glucose 182 H 188 H Hospital Course (1) Depressive disorder: 07/20--The [facility]) on q15 min checks (behavioral with suicide precautions) for safety. The patient will participate in group, recreational, and milieu therapies and will be offered additional individual and family sessions as clinically appropriate. Patient previously on 30 mg of Lexapro but I'm not currently comfortable with that dose given his recent cardiac issues. (2) Cardiomyopathy: 07/20--SL nitro prn CP. Discussed with Dr. Lutz prior to transfer. Cleared by cards, worsening of his cardiomyopathy felt to be related to poor compliance rather than acute cardiac event. Consult hospitalist prn. (3) Sleep apnea: 07/20 respiratory order for CPAP, MNPR. Mental Health & Subst Abuse Tx Therapist Name of Therapist: Used to go to [facility] Ticket Writer Name of Ticket Writer: none Post Discharge Appointments Primary Care Physician Name Of Family Doctor: Jaja Barry Smoking Cessation Counseling Tobacco Cessation Medication Prescribed at Discharge: Not Applicable/Non-Smoker Discharge Plan Discharge Items Patient Disposition: Home - Self-Care Reason For Visit: MAJOR DEPRESSIVE DISORDER Discharge Diagnosis: depression Discharge Goals: Improve disease control and Improve function Activity: Resume your previous activity Activity Comment: as per cards (walking and lifting restrictions) Non-emergency contact: Primary Care Provider Call non-emergency contact if: you have any medication questions and your symptoms worsen Follow-up/Referrals: Gabriela Ayon DO [Primary Care Provider] - Diet: Regular Addtl Provider Instructions: SPECIAL CARE INSTRUCTIONS: 1. Follow through with your scheduled aftercare appointments. If unable to keep an appointment, please call to reschedule. 2. Take your medication only as prescribed. Medication should not be changed or stopped without the approval of your doctor. In the event of worsening symptoms or concerns about side effects, contact your doctor immediately. 3. Utilize new healthy coping skills, anger management skills, and stress management skills learned during your hospitalization. Journal feelings and process them with a support person. Identify stressors or situations that may result in relapse, deterioration or inappropriate behaviors and develop a plan to deal with those issues. 4. If your coping skills are ineffective and you are in crisis, contact your outpatient providers for direction. If unable to reach your providers, please call the CAN HELP LINE AT or go to the closest Emergency Room. 5. Avoid alcohol and un-prescribed drugs. 6. You have been provided with the Mental Health Advance Directives Pamphlet for your review. AFTERCARE APPOINTMENTS: * Please call your insurance company prior to your scheduled appointment to confirm your aftercare providers are covered. Take your insurance information to your appointments. WHO TO CALL AND WHEN: Medical Emergencies: For questions or emergencies related to your hospital stay, please contact the Inpatient Behavioral Health Unit at [phone]. A outreach clinician is on-call 11/06 for the Behavioral Health Unit for emergencies At any time you feel your situation is an emergency, you may also call 911 immediately. Your Doctors Instructions noted above were prepared by provider Yudi Ruiz MD. Prescriptions: New nitroglycerin [Nitrostat] 0.4 mg Tablet, Sublingual 0.4 mg sublingual PRN Qty: 1 RF: 0 Continued atorvastatin 80 mg Tablet 80 mg PO DAILY RF: 0 lisinopril 20 mg tablet 20 mg PO DAILY RF: 0 aspirin 81 mg Tablet,Delayed Release (Dr/Ec) 81 mg PO DAILY RF: 0 calcipotriene 0.005 % cream 1 applic topical BID RF: 0 furosemide 20 mg tablet 20 mg PO QAM RF: 0 glipizide 5 mg tablet 5 mg PO BID RF: 0 topiramate 50 mg Tablet 50 mg PO BID RF: 0 metformin 1,000 mg Tablet Extended Release 24hr 1,000 mg PO BID RF: 0 carvedilol [Coreg] 12.5 mg tablet 12.5 mg PO BID RF: 0 spironolactone [Aldactone] 25 mg tablet 12.5 mg PO DAILY RF: 0 tacrolimus 0.1 % Ointment 1 applic TOPICAL UD RF: 0 albuterol sulfate 90 mcg/actuation Hfa Aerosol Inhaler 2 puff INHALATION QID PRN (Reason: Shortness Of Breath Or Wheezing) RF: 0 escitalopram oxalate [Lexapro] 20 mg tablet 20 mg PO DAILY RF: 0 Stand-Alone Forms: [facility] Discharge Orders: Discharge Order (Routine); Ordered 07/22/19 Ordered By: Yudi Ruiz Admission Data Admit Date/Time: 07/20/19 12:45 Attending Provider: Yudi Ruiz Admit Provider: Yudi Ruiz Primary Care Provider: Gabriela Ayon Service: Psychiatry Other Pending Studies at Discharge: No
== END 2019-07-22 14:00 | disposition home or self-care (01) | DRG 881 ==
LOC: 3S 12:45

== ENCOUNTER 2021-01-08 18:22 | Inpatient (IN) ==
[2021-01-08] MEDS ORDERED: ONDANSETRON INJ 2 MG/ML 2 ML VIAL IV STA (18:34)
[2021-01-08] MEDS ORDERED: SODIUM CHLORIDE 0.9% 1000ML 2,000 ML IV ONE (18:34)
--- NOTE | 2021-01-08 18:38 | Emergency Department Note ---
Impression & Plan Acute hyperglycemia, Vomiting, Abdominal pain, Leukocytosis, Abnormal ECG ED Provider Note NAME: JUDI ABEL AGE: 45 SEX: M : 1975 ARRIVES VIA: Walk-In INFORMANT: Patient ED PROVIDER(S): Wilmer Nazario DO CHIEF COMPLAINT: N/V and weakness HPI: Patient is a 45-year-old male who presents to the ER for nausea and vomiting. Symptoms started yesterday and his blood sugars were reading critically high. They have been elevated today. He has been having some nausea, vomiting, and having difficulty keeping things down. He takes glipizide, Metformin and Januvia. She has not missed any doses. He does not take any injectables. He denies any focal belly pain but admits that he has a diffuse upset stomach. Denies any dysuria, urgency, and frequency. No chest pain or shortness of breath. No loss of taste or smell. No other exacerbating or remitting factors. ROS: See above HPI for pertinent positives & negatives. A total of 10 systems reviewed and were otherwise negative. PAST MEDICAL HISTORY:See Below PAST SURGICAL HISTORY:See Below FAMILY HISTORY:See Below SOCIAL HISTORY:See Below HOME MEDICATIONS:See Below ALLERGIES:See Below VITALS:See Below PHYSICAL EXAMINATION: GENERAL: Sitting up in bed, alert, chronically ill-appearing, disheveled EYE EXAM: normal conjunctiva. PERRL and EOM's grossly intact. OROPHARYNX: Dry mucous membranes LUNGS: Clear to auscultation. Normal chest wall mechanics HEART: Tachycardic, S1 normal and S2 normal ABDOMEN: abdomen soft, non-tender, normo-active bowel sounds, no masses, no rebound or guarding. BACK: Back is symmetrical on inspection and there is no deformity, no midline tenderness, no CVA tenderness. SKIN: no rashes and no bruising UPPER EXTREMITIES: upper extremities are grossly normal. LOWER EXTREMITIES: No pitting edema. NEURO EXAM: Normal sensorium, cranial nerves II-XII grossly intact, normal speech, no gross weakness of arms, no gross weakness of legs. MEDICAL DECISION MAKING: Patient is a 45-year-old who presents the ER for elevated blood sugars associate with belly pain nausea vomiting. He is a type II diabetic. He says he has been taking his medications but later changes and notes that he has missed some doses. IV was established blood work was obtained. Labs show a leukocytosis of 13,000. No significant anemia. INR was unremarkable/subtherapeutic. VBG with a pH of 7.35. Sodium 128. Creatinine 1.47. Blood sugar was 384. LFTs and bilirubin was unremarkable. Troponin was detectable but not positive. UA was unremarkable. Chest x-ray and CT abdomen pelvis showed no acute pathology. He was given IV fluids x2 L as well as insulin. Blood sugars trended down. EKG shows new ST depressions comparison to old. He has no chest pain. She was updated bedside and discharged follow-up as an outpatient. Discussed with Pt concerning signs and symptoms to watch out for. Pt was instructed to follow up with their PCP and discussed with the patient their option to return to the ED at anytime for persistent or worsening symptoms. The appropriate anticipatory guidance and out-patient management, including indications for return to the emergency department, were explained at length to the patient and understood. Triage Nursing notes reviewed. Limited review of prior medical records performed Vital Signs: reviewed and remarkable for HTN and tachy Differential diagnosis: Differential diagnoses includes but is not limited to gastritis, peptic ulcer disease, GERD, gallbladder disease, pancreatitis, small bowel obstruction, acute coronary syndrome, pericarditis, ischemic bowel, irritable bowel disease, irritable bowel syndrome, appendicitis, diverticulitis, malignancy, hernia, urinary tract infection, torsion, [/ectopic (if female)], perforation, trauma, infectious. ER treatment provided: See below Diagnostics interpreted by me: EKG: Sinus rhythm rate of [address] depressions in the high lateral leads with T wave inversions new ST depressions in V2 through V4 which is new from old ST depressions in V5 V6 which is old Cardiac Monitoring: An order was placed for continuous cardiac monitoring. The monitor shows a rate of 105 with sinus rhythm. Laboratory studies: As stated above and show below. 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" DM type 2 (diabetes mellitus, type 2) GERD (gastroesophageal reflux disease) Hypertension Morbid obesity with BMI of 45.0-49.9, adult Pulmonary hypertension "moderate per echo 09/2016" Sleep disorder Valvular heart disease "AV possibly bicuspid, severe , mild AR, mild MR, mild TR per echo 09/2016" Vitiligo Family History Other Cancer Social History Smoking Status: Never smoker Cigarettes Per Day: 2; Hx Alcohol Use: Yes Alcohol type: beer, wine and hard liquor Hx Substance Use: No Preferred Language: Azeri Communication Ability: Effective Engineering Documentation Specialist Required: No Beliefs That Will Affect Care: None marital status: Current Living Situation: Family Current Living Situation Comment: son How many Children do You have: 1 Feels Safe at Home: Yes Assistive Devices: CPAP Allergies Allergies Allergy/AdvReac Type Severity Reaction Status Date / Time No Known Allergies Allergy Verified 01/08/21 21:59 Home Meds Home Medications Medication Instructions Recorded Confirmed aspirin [Ecotrin Low Strength] 81 mg PO HS 01/02/19 01/08/21 atorvastatin [Lipitor] 80 mg PO HS 01/02/19 01/08/21 calcipotriene [Dovonex] 1 applic TOPICAL BID 01/02/19 01/08/21 furosemide [Lasix] 40 mg PO QAM 01/02/19 01/08/21 glipizide [Glucotrol] 5 mg PO BID 01/02/19 01/08/21 lisinopril [Zestril] 20 mg PO QAM 01/02/19 01/08/21 metformin [Fortamet] 1,000 mg PO BIDM 01/02/19 01/08/21 topiramate [Topamax] 50 mg PO BID 01/02/19 01/08/21 albuterol sulfate [Ventolin HFA] 2 puff INHALATION QID PRN 07/18/19 01/08/21 carvedilol [Coreg] 12.5 mg PO BID 07/18/19 01/08/21 escitalopram oxalate [Lexapro] 20 mg PO QAM 07/18/19 01/08/21 spironolactone [Aldactone] 12.5 mg PO QAM 07/18/19 01/08/21 tacrolimus [Protopic] 1 applic TOPICAL .Q2D/BID 07/18/19 01/08/21 empagliflozin [Jardiance] 25 mg PO DAILY 01/08/21 01/08/21 topiramate [Topamax] 25 mg PO BID 01/08/21 01/08/21 Previous Rx's Medication Instructions Recorded nitroglycerin [Nitrostat] 0.4 mg SUBLINGUAL PRN #1 tab 07/22/19 Results & Data (ED) Vital Signs Vital Signs - 24 hr 01/08/21 18:23 01/08/21 18:51 01/08/21 20:33 Temperature 36.4 C L Temperature Source Oral Pulse Rate 106 H 93 H Pulse Rate from SpO2 Sensor 93 H Pulse Rhythm Regular Pulse Strength Normal Respiratory Rate 18 17 Respiratory Effort / Characteristics Non-Labored Spontaneous Respiratory Depth Normal Respiratory Pattern Regular Blood Pressure 146/108 H 136/86 Blood Pressure Mean 120 102 Pulse Oximetry 97 98 98 Oxygen Delivery Method Room Air Room Air Sepsis Recent Fever Within 48 Hours No Sepsis New/Unexplained Change in Mental Status N/A Sepsis Action Taken by Nursing No Action Required Laboratory Data Result diagrams: 01/08/21 18:44 01/08/21 18:44 Lab Results 01/08/21 01/08/21 01/08/21 Range/Units 18:44 18:44 18:44 WBC 13.10 H (4.8-10.8) K/uL RBC 5.85 (4.7-6.1) M/uL Hgb 19.1 H (14.0-18.0) g/dL Hct 52.5 H (42-52) % MCV 89.7 (80-100) fL MCH 32.6 (25-34) pg MCHC 36.4 H (32-36) g/dL RDW Std Deviation 40.9 (36.4-46.3) fL RDW Coeff of Tyron 12.4 (11.5-14.5) % Plt Count 318 (130-400) K/uL MPV 10.4 (7.4-10.4) fL Immature Gran % (Auto) 0.4 % Neut % (Auto) 79.1 % Lymph % (Auto) 14.0 % [place] % (Auto) 6.0 % Eos % (Auto) 0.3 % Baso % (Auto) 0.2 % Neut # (Auto) 10.36 H (1.4-6.5) K/uL Lymph # (Auto) 1.84 (1.2-3.4) K/uL [place] # (Auto) 0.78 H (0.11-0.59) K/uL Eos # (Auto) 0.04 (0-0.5) K/uL Baso # (Auto) 0.03 (0-0.2) K/uL Immature Gran # (Auto) 0.05 H (0.00-0.02) K/uL PT 10.3 (9.0-12.0) Seconds INR 1.0 (0.9-1.1) VBG pH (7.36-7.41) VBG pCO2 (38-50) mmHg VBG pO2 mmHg VBG HCO3 mmol/L VBG O2 Saturation % VBG Base Excess mEq/L Barometric Pressure mm/Hg Sodium 128 L (136-145) mmol/L Potassium 4.2 (3.5-5.1) mmol/L Chloride 93 L (98-107) mmol/L Carbon Dioxide 21 (21-32) mmol/L Anion Gap 15.0 H (3-11) BUN 25 H (7-18) mg/dl Creatinine 1.47 H (0.6-1.4) mg/dl Est Cr Clr Drug Dosing 78.9 ml/min Est GFR ( Amer) 66.3 Est GFR (Non-Af Amer) 57.2 BUN/Creatinine Ratio 17.1 (10-20) Glucose 384 H* (70-99) mg/dl POC Glucose (70-99) mg/dl Calcium 9.4 (8.5-10.1) mg/dl Total Bilirubin 0.9 (0.2-1) mg/dl AST 11 L (15-37) U/L ALT 19 (12-78) U/L Alkaline Phosphatase 176 H (45-117) U/L Troponin I 0.020 (0-0.045) ng/ml Total Protein 7.7 (6.4-8.2) gm/dl Albumin 3.6 (3.4-5.0) gm/dl Globulin 4.1 H (2.5-4.0) gm/dl Albumin/Globulin Ratio 0.9 (0.9-2) Lipase 189 (73-393) U/L Beta-Hydroxybutyric Acd 29.52 H (0.2-2.81) mg/dl Urine Color Urine Appearance (Clear) Urine pH (4.5-7.5) Ur Specific Dyer (1.000-1.030) Urine Protein (Negative) Urine Glucose (UA) (Negative) Urine Ketones (Negative) Urine Blood (Negative) Urine Nitrite (Negative) Urine Bilirubin (Negative) Urine Urobilinogen (Negative) Ur Leukocyte Esterase (Negative) COVID-19 Eval Order SARS-CoV-2, RNA, NAAT (NEGATIVE) 01/08/21 01/08/21 01/08/21 Range/Units 18:45 19:49 21:00 WBC (4.8-10.8) K/uL RBC (4.7-6.1) M/uL Hgb (14.0-18.0) g/dL Hct (42-52) % MCV (80-100) fL MCH (25-34) pg MCHC (32-36) g/dL RDW Std Deviation (36.4-46.3) fL RDW Coeff of Tyron (11.5-14.5) % Plt Count (130-400) K/uL MPV (7.4-10.4) fL Immature Gran % (Auto) % Neut % (Auto) % Lymph % (Auto) % [place] % (Auto) % Eos % (Auto) % Baso % (Auto) % Neut # (Auto) (1.4-6.5) K/uL Lymph # (Auto) (1.2-3.4) K/uL [place] # (Auto) (0.11-0.59) K/uL Eos # (Auto) (0-0.5) K/uL Baso # (Auto) (0-0.2) K/uL Immature Gran # (Auto) (0.00-0.02) K/uL PT (9.0-12.0) Seconds INR (0.9-1.1) VBG pH 7.35 L (7.36-7.41) VBG pCO2 50 (38-50) mmHg VBG pO2 22 mmHg VBG HCO3 27 mmol/L VBG O2 Saturation < 60.0 % VBG Base Excess 0.3 mEq/L Barometric Pressure 740.1 mm/Hg Sodium (136-145) mmol/L Potassium (3.5-5.1) mmol/L Chloride (98-107) mmol/L Carbon Dioxide (21-32) mmol/L Anion Gap (3-11) BUN (7-18) mg/dl Creatinine (0.6-1.4) mg/dl Est Cr Clr Drug Dosing ml/min Est GFR ( Amer) Est GFR (Non-Af Amer) BUN/Creatinine Ratio (10-20) Glucose (70-99) mg/dl POC Glucose (70-99) mg/dl Calcium (8.5-10.1) mg/dl Total Bilirubin (0.2-1) mg/dl AST (15-37) U/L ALT (12-78) U/L Alkaline Phosphatase (45-117) U/L Troponin I (0-0.045) ng/ml Total Protein (6.4-8.2) gm/dl Albumin (3.4-5.0) gm/dl Globulin (2.5-4.0) gm/dl Albumin/Globulin Ratio (0.9-2) Lipase (73-393) U/L Beta-Hydroxybutyric Acd (0.2-2.81) mg/dl Urine Color Yellow Urine Appearance Clear (Clear) Urine pH 5.0 (4.5-7.5) Ur Specific [place] 1.035 H (1.000-1.030) Urine Protein Negative (Negative) Urine Glucose (UA) 3+ H (Negative) Urine Ketones 1+ H (Negative) Urine Blood Negative (Negative) Urine Nitrite Negative (Negative) Urine Bilirubin Negative (Negative) Urine Urobilinogen Negative (Negative) Ur Leukocyte Esterase Negative (Negative) COVID-19 Eval Order Covid19 [facility] SARS-CoV-2, RNA, NAAT (NEGATIVE) 01/08/21 01/08/21 Range/Units 21:00 21:02 WBC (4.8-10.8) K/uL RBC (4.7-6.1) M/uL Hgb (14.0-18.0) g/dL Hct (42-52) % MCV (80-100) fL MCH (25-34) pg MCHC (32-36) g/dL RDW Std Deviation (36.4-46.3) fL RDW Coeff of Tyron (11.5-14.5) % Plt Count (130-400) K/uL MPV (7.4-10.4) fL Immature Gran % (Auto) % Neut % (Auto) % Lymph % (Auto) % [place] % (Auto) % Eos % (Auto) % Baso % (Auto) % Neut # (Auto) (1.4-6.5) K/uL Lymph # (Auto) (1.2-3.4) K/uL [place] # (Auto) (0.11-0.59) K/uL Eos # (Auto) (0-0.5) K/uL Baso # (Auto) (0-0.2) K/uL Immature Gran # (Auto) (0.00-0.02) K/uL PT (9.0-12.0) Seconds INR (0.9-1.1) VBG pH (7.36-7.41) VBG pCO2 (38-50) mmHg VBG pO2 mmHg VBG HCO3 mmol/L VBG O2 Saturation % VBG Base Excess mEq/L Barometric Pressure mm/Hg Sodium (136-145) mmol/L Potassium (3.5-5.1) mmol/L Chloride (98-107) mmol/L Carbon Dioxide (21-32) mmol/L Anion Gap (3-11) BUN (7-18) mg/dl Creatinine (0.6-1.4) mg/dl Est Cr Clr Drug Dosing ml/min Est GFR ( Amer) Est GFR (Non-Af Amer) BUN/Creatinine Ratio (10-20) Glucose (70-99) mg/dl POC Glucose 213 H (70-99) mg/dl Calcium (8.5-10.1) mg/dl Total Bilirubin (0.2-1) mg/dl AST (15-37) U/L ALT (12-78) U/L Alkaline Phosphatase (45-117) U/L Troponin I (0-0.045) ng/ml Total Protein (6.4-8.2) gm/dl Albumin (3.4-5.0) gm/dl Globulin (2.5-4.0) gm/dl Albumin/Globulin Ratio (0.9-2) Lipase (73-393) U/L Beta-Hydroxybutyric Acd (0.2-2.81) mg/dl Urine Color Urine Appearance (Clear) Urine pH (4.5-7.5) Ur Specific [place] (1.000-1.030) Urine Protein (Negative) Urine Glucose (UA) (Negative) Urine Ketones (Negative) Urine Blood (Negative) Urine Nitrite (Negative) Urine Bilirubin (Negative) Urine Urobilinogen (Negative) Ur Leukocyte Esterase (Negative) COVID-19 Eval Order SARS-CoV-2, RNA, NAAT NEGATIVE (NEGATIVE) Administered Medications Discontinued Medications Sodium Chloride (Nss 1000ml) 2,000 mls @ 999 mls/hr IV .Q2H1M ONE Stop: 01/08/21 20:34 Last Infusion: 01/08/21 20:43 Dose: 0 mls/hr Documented by: [id number] Admin: 01/08/21 18:55 Dose: 999 mls/hr Documented by: [id number] Insulin Human Regular (Novolin-R Insulin Per Unit Charge) 5 units IV NOW STA Stop: 01/08/21 19:36 Last Admin: 01/08/21 20:38 Dose: 5 units Documented by: [id number] Cosigned by: [id number] Ioversol (Ioversol 100ml) 95 ml IV ONCE ONE Stop: 01/08/21 20:24 Last Admin: 01/08/21 20:24 Dose: 95 ml Documented by: [id number] Ketorolac Tromethamine (Ketorolac Tromethamine 15 Mg/Ml Vial) 15 mg IV NOW ONE Stop: 01/08/21 20:06 Last Admin: 01/08/21 20:38 Dose: 15 mg Documented by: [id number] Ondansetron HCl (Ondansetron Inj 2 Mg/Ml 2 Ml Vial) 4 mg IV NOW STA Stop: 01/08/21 18:35 Last Admin: 01/08/21 19:06 Dose: 4 mg Documented by: [id number] Discharge Plan Visit Data Chief Complaint: Illness Stated Complaint: HIGH SUGAR ED Provider: Wilmer Nazario Discharge Problem: Acute hyperglycemia, Vomiting, Abdominal pain, Leukocytosis, Abnormal ECG Discharge Instructions Interventions: ED Discharge Assessment Last Done: 01/08/21 23:03 Discharge Problem: Vomiting Qualifiers: Vomiting type: unspecified Vomiting Intractability: unspecified Nausea presence: unspecified Qualified Code(s): R11.10 - Vomiting, unspecified Abdominal pain Qualifiers: Abdominal location: unspecified location Qualified Code(s): R10.9 - Unspecified abdominal pain Leukocytosis Qualifiers: Leukocytosis type: unspecified Qualified Code(s): D72.829 - Elevated white blood cell count, unspecified
[2021-01-08 19:00] LABS: Basophils # (auto) 0.03 K/uL (0-0.2); Basophils % (auto) 0.2 %; Eosinophils # (auto) 0.04 K/uL (0-0.5); Eosinophils % (auto) 0.3 %; Hematocrit (blood only) 52.5 % (42-52); Hemoglobin 19.1 g/dL (14.0-18.0); Immature Granulocytes # (auto) 0.05 K/uL (0.00-0.02); Immature Granulocytes % (auto) 0.4 %; Lymphocytes # (auto) 1.84 K/uL (1.2-3.4); Mean Corpuscular Hemoglobin 32.6 pg (25-34); Mean Corpuscular Hgb Conc 36.4 g/dL (32-36); Mean Corpuscular Volume 89.7 fL (80-100); Mean Platelet Volume 10.4 fL (7.4-10.4); Monocytes # (auto) 0.78 K/uL (0.11-0.59); Neutrophils # (auto) 10.36 K/uL (1.4-6.5); Neutrophils % (auto) 79.1 %; Platelet Count 318 K/uL (130-400); RDW Coefficient of Variation 12.4 % (11.5-14.5); RDW Standard Deviation 40.9 fL (36.4-46.3); Red Blood Count 5.85 M/uL (4.7-6.1)
[2021-01-08 19:10] LABS: Appearance Urine Clear (Clear); Bilirubin Urine Negative (Negative); Blood Urine Negative (Negative); Color Urine Yellow; Glucose Urine UA 3+ (Negative); Ketones Urine 1+ (Negative); Leukocyte Esterase Urine Negative (Negative); Nitrite Urine Negative (Negative); Protein Urine Negative (Negative); Specific Gravity Urine 1.035 (1.000-1.030); Urobilinogen Urine Negative (Negative)
[2021-01-08 19:11] LABS: Prothrombin Time 10.3 Seconds (9.0-12.0)
[2021-01-08 19:26] LABS: Albumin Level 3.6 gm/dl (3.4-5.0); BUN Creatinine Ratio 17.1 (10-20); Calcium 9.4 mg/dl (8.5-10.1); Creatinine Clr Calc Pharmacy 78.9 ml/min; Est GFR (African American) 66.3; Est GFR (Non-African American) 57.2; Potassium 4.2 mmol/L (3.5-5.1)
[2021-01-08] MEDS ORDERED: NovoLIN-R INSULIN PER UNIT CHARGE IV STA (19:35)
--- NOTE | 2021-01-08 19:35 | XRay Report ---
XR chest 1V portable CLINICAL HISTORY: Weak. COMPARISON STUDY: Chest radiograph and chest CT February 22, 2020. FINDINGS: Lung volumes are normal. Lungs are clear. There is no pneumothorax or pleural effusion. Car diac size is normal. Mediastinal contours are normal. There is no evidence for pulmonary edema. Media n sternotomy wires are noted. IMPRESSION: No acute cardiopulmonary findings. No change in appearance of the chest. ACT 112: Negative or not required by law. Electronically signed by: Narendra Velasquez M.D. 01/08/2021 7:34 PM
[2021-01-08 19:38] LABS: Albumin Globulin Ratio 0.9 (0.9-2); Beta-Hydroxybutyrate 29.52 mg/dl (0.2-2.81); Bilirubin,Total 0.9 mg/dl (0.2-1); Globulin 4.1 gm/dl (2.5-4.0); Total Protein 7.7 gm/dl (6.4-8.2); Troponin I 0.02 ng/ml (0-0.045)
[2021-01-08 20:04] LABS: Base Excess VBG 0.3 mEq/L; HCO3 VBG 27 mmol/L; PCO2 VBG 50 mmHg (38-50); PO2 VBG 22 mmHg; pH VBG 7.35 (7.36-7.41)
[2021-01-08] MEDS ORDERED: KETOROLAC TROMETHAMINE 15 MG/ML VIAL IV ONE (20:05)
[2021-01-08 20:07] LABS: Oxygen Saturation VBG < 60.0 %
[2021-01-08] MEDS ORDERED: OPTIRAY 320 100ml IV ONE (20:23)
[2021-01-08] MEDS ORDERED: MoRPHine SULFATE 4 MG/ML 1 ML CARP\\VIAL IV PRN (23:15)
[2021-01-08] MEDS ORDERED: ALBUTEROL HFA 8 GM INHALER INH PRN (23:15)
[2021-01-08] MEDS ORDERED: ACETAMINOPHEN 325 MG TAB PO PRN (23:15)
[2021-01-08] MEDS ORDERED: ONDANSETRON INJ 2 MG/ML 2 ML VIAL IV PRN (23:15)
[2021-01-08] MEDS ORDERED: NITROGLYCERIN SL 0.4 MG/TAB TAB SL PRN (23:15)
[2021-01-08] MEDS ORDERED: INSULIN GLARGINE SOLOSTAR 100 UNITS/ML 3 ML PEN SC SCH (23:15)
[2021-01-08] MEDS ORDERED: NITROGLYCERIN SL 0.4 MG/TAB TAB SL SCH (23:15)
[2021-01-08] MEDS ORDERED: PHARMACY GLYCEMIC MGMT CONSULT PRN (23:24)
[2021-01-08] MEDS ORDERED: GLUCOSE 10 TABS/TUBE PO PRN (23:45)
[2021-01-08] MEDS ORDERED: GLUCAGON FOR INJ 1 MG VIAL SQ PRN (23:45)
[2021-01-08] MEDS ORDERED: INFLUENZA VIRUS QUAD VACCINE 0.5 ML SYR IM ONE (23:45)
[2021-01-08] MEDS ORDERED: CARBOHYDRATES FOR HYPOGLYCEMIA PO PRN (23:45)
[2021-01-08] MEDS ORDERED: GLUCOSE 40% GEL 15 GM TUBE PO PRN (23:45)
[2021-01-08] MEDS ORDERED: DEXTROSE 50% 50 ML SYRINGE IV PRN (23:45)
[2021-01-08] MEDS ORDERED: INFLUENZA ADMINISTRATION CHARGE ONE (23:45)
[2021-01-09] MEDS: SODIUM CHLORIDE 0.9% 1000ML 1,000 ML IV SCH ×3 (00:02→17:11)
--- NOTE | 2021-01-09 01:46 | History and Physical Report ---
DATE OF ADMISSION: 01/08/2021 CHIEF COMPLAINT: Nausea, vomiting and diarrhea. HISTORY OF PRESENT ILLNESS: This is a 45-year-old male with past medical history significant for type 2 diabetes, obstructive sleep apnea, on CPAP; chronic rhinitis, diastolic congestive heart failure, chronic systolic congestive heart failure, hypertension, dilated cardiomyopathy, obesity, cholelithiasis, history of vitiligo, migraines, pterygium of eyes, status post AVR, presents with nausea, vomiting and diarrhea that is going on today and he also says his sugars running high yesterday and today in 500s; that is why he came into the ER. In the ER his hemodynamics are stable, but his sugars were running high at 380s. There is some slight anion gap. Bicarbonate is okay. Creatinine is 1.4. SARS-CoV-[address] abdomen preliminary report showing nonspecific colitis. The patient says he has some abdominal discomfort and also having several episodes of diarrhea, watery and also some nausea and vomiting. Nausea improved with medication in the ER. He is not able to eat anything and sugars running high, found difficult to control the sugars at home. Denies any chest pain, no shortness of breath. Complains of some cough since last few days. Denies any fever, chills. No loss of sense of smell or taste, not able to eat because of nausea, has some headache, some dizziness. No earache, no runny nose, no sore throat. He says he is micturating a lot. No swelling in the legs, no rash. Lives alone. He says he checks his sugars daily. ALLERGIES: No known drug allergies. PAST MEDICAL HISTORY: As mentioned above. PAST SURGICAL HISTORY: Circumcision, left heart cardiac catheterization, laparoscopic cholecystectomy, excision of pterygium with graft, bioprosthetic aortic valve replacement, umbilical hernia repair. MEDICATIONS: The patient is on Lasix 40 mg p.o. daily, lisinopril 20 mg p.o. daily, atorvastatin 80 mg p.o. daily, metformin 1000 mg p.o. b.i.d., albuterol 2 puffs q. 4 hours, Lexapro 20 mg p.o. daily, Jardiance 25 mg p.o. daily, Coumadin 5-7.5 mg as directed, Coreg 12.5 mg p.o. b.i.d., glipizide 5 mg p.o. b.i.d., spironolactone 12.5 mg p.o. daily, topiramate 50 mg p.o. b.i.d., calcipotriene 0.005% cream apply to the white spots on the face twice daily, tacrolimus apply to the white spots on the face twice daily, alternate with calcipotriene, Tylenol p.r.n., aspirin 81 mg p.o. daily. FAMILY HISTORY: No family history of cancer, diabetes, heart disorder, hypertension, stroke. SOCIAL HISTORY: Former smoker, quit in 2011, smoked about 2 packs a day for 1 year. No alcohol use, no drug use. REVIEW OF SYMPTOMS: As per HPI. Rest of review of symptoms negative. PHYSICAL EXAMINATION: GENERAL: The patient is obese, not in acute distress. VITAL SIGNS: Temperature 36.7, pulse 90, respiratory rate 16, blood pressure 124/83, oxygen 98% room air. HEENT: Pupils equal, round, and reactive to light. Oral mucosa is dry. NECK: No JVD, no neck masses seen. CARDIOVASCULAR: S1, S2, regular rate and rhythm, no murmur, no gallop. RESPIRATORY SYSTEM: Normal AP diameter. No accessory muscle use. No wheezing, no crackles. ABDOMEN: Soft, bowel sounds present. Mild abdominal diffuse discomfort. No guarding, no rigidity. No distention. CENTRAL NERVOUS SYSTEM: Cranial nerves II-XII grossly intact, nonfocal. EXTREMITIES: No edema, no erythema. SKIN: White spots seen on the face. LABORATORY DATA: WBC 13.1, hemoglobin 19.1, hematocrit 52.5, platelets 318. PT 10.3, INR 1. Venous blood gases pH 7.35, pCO2 of 50. Sodium 128, potassium 4.2, chloride 93, bicarbonate 21, BUN 25, creatinine 1.4, serum glucose 384, glucose 209, calcium 9.4, total bilirubin 0.9, AST 31, ALT 19, alkaline phosphatase 176. Troponin I 0.02, lipase 189. Beta hydroxybutyric acid 29.52. Urinalysis, +3 glucose, +1 ketones. SARS-CoV-[address] abdomen and pelvis, nonspecific colitis. IMAGING: Chest x-ray: No acute cardiopulmonary findings. EKG: Normal sinus rhythm, rate of 94, nonspecific ST abnormality, no significant change was found. ASSESSMENT AND PLAN: This is a 45-year-old male who presents with nausea, vomiting, diarrhea and hyperglycemia. 1. Nausea, vomiting, diarrhea, nonspecific colitis on the CAT scan, could be gastroenteritis. SARS-CoV-2 negative. We will check stool for Clostridium difficile as well as stool cultures. We will place him on IV fluids, clear liquid diet and consult GI in the a.m. for further recommendations. 2. Hyperglycemia, anion gap is 15. No acidosis. Got a dose of IV Insulin in the ER. We will hold his home medication. Place him on Lantus and insulin sliding scale. Glycemic pharmacy consult. Monitor the blood sugars. 3. Acute kidney injury. Creatinine 1.4, baseline creatinine 0.8. Holding his diuretics and lisinopril. Getting fluids and follow the labs in a.m. 4. Hyponatremia, mostly pseudohyponatremia from elevated sugars. We will follow the repeat labs. 5. Obstructive sleep apnea. CPAP at bedtime. 6. Chronic diastolic and systolic congestive heart failure, ejection fraction 35-40% EF on echo done in June 2019. EF 50% on echo in 07/2020 Holding his Lasix, getting fluids. Monitor for any volume overload. 7. Hypertension. Continue his Coreg. We will hold Lasix and lisinopril and spironolactone. Monitor the blood pressure. 8. Vitiligo. Continue his home topical creams. 9. Hyperlipidemia. Continue statin. 10. History of coronary artery disease. Continue his aspirin, statin and beta-betty. Currently asymptomatic. 11. Depression. Continue his Lexapro. 12. History of migraine, on Topamax. 13. s/p AVR bioprosthetic valve. Question of clot on prosthetic valve supposed too be on Coumadin. Stopped taking Coumadin. Will consult cardiology for further recommendations as no clot seen on echo from 07/2020. 14. Deep venous thrombosis prophylaxis, sequential compression devices. 15. Disposition: Admit to med tele. Expect discharge home and follow with family doctor. Level 1 full code. MTDD
[2021-01-09] MEDS ORDERED: INSULIN ASPART 100 UNITS/ML 3 ML PEN SC SCH (04:00)
[2021-01-09 05:36] LABS: Hematocrit (blood only) 49.6 % (42-52); Hemoglobin 17.6 g/dL (14.0-18.0); Mean Corpuscular Hemoglobin 32.2 pg (25-34); Mean Corpuscular Hgb Conc 35.5 g/dL (32-36); Mean Corpuscular Volume 90.8 fL (80-100); Platelet Count 267 K/uL (130-400); RDW Coefficient of Variation 12.6 % (11.5-14.5); RDW Standard Deviation 41.3 fL (36.4-46.3); Red Blood Count 5.46 M/uL (4.7-6.1); White Blood Count 11.84 K/uL (4.8-10.8)
[2021-01-09 06:03] LABS: ALC (manual) 2.34 K/uL (1.2-3.4); ANC (manual) 9.18 K/uL (1.4-6.5); Basophils # (manual) 0.11 K/uL (0-0.2); Basophils % (manual) 0.9 %; Eosinophils # (manual) 0.11 K/uL (0-0.5); Eosinophils % (manual) 0.9 %; Lymphocytes # (manual) 2.34 K/uL (1.2-3.4); Lymphocytes % (manual) 19.8 %; Monocytes # (manual) 0.11 K/uL (0.11-0.59); Monocytes % (manual) 0.9 %; Neutrophils # (manual) 9.18 K/uL (1.4-6.5); Neutrophils % (manual) 77.5 %; RBC Morphology Unremarkable
[2021-01-09 06:28] LABS: BUN Creatinine Ratio 25.5 (10-20); Calcium 8.4 mg/dl (8.5-10.1); Creatinine Clr Calc Pharmacy 116.7 ml/min; Est GFR (African American) 105.6; Est GFR (Non-African American) 91.1; Potassium 4.1 mmol/L (3.5-5.1)
[2021-01-09] MEDS: ENOXAPARIN INJ 40 MG/0.4 ML SYR SQ SCH ×2 (08:40→22:21)
[2021-01-09] MEDS: TOPIRAMATE 25 MG TAB PO SCH ×2 (08:41→21:04)
[2021-01-09] MEDS: TOPIRAMATE 50 MG TAB PO SCH ×2 (08:43→21:03)
[2021-01-09] MEDS: ATORVASTATIN 40 MG TAB PO SCH ×2 (08:44→21:03)
[2021-01-09] MEDS: ESCITALOPRAM OXALATE 20 MG TAB PO SCH (08:44)
[2021-01-09] MEDS: carvediloL 12.5 MG TAB PO SCH ×2 (08:44→21:02)
[2021-01-09] MEDS: INSULIN ASPART 100 UNITS/ML 3 ML PEN SC SCH ×4 (09:00→21:05)
[2021-01-09] MEDS: INSULIN GLARGINE SOLOSTAR 100 UNITS/ML 3 ML PEN SC SCH ×2 (09:02→22:21)
--- NOTE | 2021-01-09 09:11 | CT Scan Report ---
ABDOMEN AND PELVIS CT WITH IV CONTRAST CT DOSE: 1604.93 mGy.cm HISTORY: Acute generalized abdominal pain with nausea and vomiting abd pain n/v TECHNIQUE: Multiaxial CT images of the abdomen and pelvis were performed following the IV administrat ion of 95 cc of Optiray 320, A dose lowering technique was utilized adhering to the principles of [place] JULIEN[place]. COMPARISON STUDY: CT abdomen and pelvis 02/22/2020 FINDINGS: Prior median sternotomy with prosthetic aortic valve. Clear lung bases. No pneumatosis or p neumoperitoneum. The spleen, pancreas and adrenal glands are unremarkable. Cholecystectomy. Unremarka ble liver. Kidneys, ureters and urinary bladder are unremarkable. Prominent prostate. No aortic aneur ysm or adenopathy. There is no bowel obstruction. Scattered colonic air-fluid levels. Normal appendix. No definite bowel wall thickening. Postoperative changes of the ventral abdominal wall with diastases recti. Small fat filled periumbilical hernias are noted. Soft tissues are otherwise unremarkable. No acute fracture. IMPRESSION: 1. No bowel obstruction or definite bowel wall thickening. Normal appendix 2. There are a few scattered colonic air-fluid levels which may reflect underlying diarrheal illness. 3. Cholecystectomy. 4. Additional findings as above. ACT 112: Negative or not required by law. The above report was generated using voice recognition software. It may contain grammatical, syntax o r spelling errors. Electronically signed by: Umer Zhang M.D. 01/09/2021 9:10 AM
--- NOTE | 2021-01-09 09:30 | Gastrointestinal Consultation ---
Date of Consultation January 09, 2021 Assessment & Plan (1) Vomiting: (2) Diarrhea: Most likely etiologies at this time would be an infectious gastroenteritis given the acute onset. Would recommend checking stool studies for bacterial issues as well as C. difficile and including viral pathogens. This also may be causal from HH NK he clearly is dry with hemoconcentration in the presence of ketones. Continue IV fluids, correction of hyperglycemic state, continue symptomatic care with antiemetics. I would also add some oral Bentyl 3 times daily to help with abdominal cramping. We will follow Please call with questions History of Present Illness Attending Physician: Kevin Valdovinos MD History of Present Illness This is a 45-year-old male with past medical history significant for type 2 diabetes, obstructive sleep apnea, on CPAP; chronic rhinitis, diastolic congestive heart failure, chronic systolic congestive heart failure, hypertension, dilated cardiomyopathy, obesity, cholelithiasis, history of vitiligo, migraines, pterygium of eyes, status post AVR, who presents with nausea, vomiting and diarrhea. Subsequently to this his sugars began running high yesterday in the 500s (only on oral meds) prompting presentation to the ER. He has presence of ketones with a slight anion gap. Creatinine is 1.4. SARS-CoV-[address] suggested some non specific colitis. Has watery non melanotic, non bloody diarrhea. Today in his room, he stood up and felt very lightheaded, EKG was unremarkable vital signs are all within normal limits. He is not on anticoagulation for his aortic valve replacement. He denies any chest pain at this time. 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 He does admit to some colicky bloating abdominal pain without focus. Allergies Allergy/AdvReac Type Severity Reaction Status Date / Time No Known Allergies Allergy Verified 01/08/21 21:59 Home Medications Medication Instructions Recorded Confirmed Type aspirin [Ecotrin Low Strength] 81 mg PO HS 01/02/19 01/08/21 History atorvastatin [Lipitor] 80 mg PO HS 01/02/19 01/08/21 History calcipotriene [Dovonex] 1 applic TOPICAL BID 01/02/19 01/08/21 History furosemide [Lasix] 40 mg PO QAM 01/02/19 01/08/21 History glipizide [Glucotrol] 5 mg PO BID 01/02/19 01/08/21 History lisinopril [Zestril] 20 mg PO QAM 01/02/19 01/08/21 History metformin [Fortamet] 1,000 mg PO BIDM 01/02/19 01/08/21 History topiramate [Topamax] 50 mg PO BID 01/02/19 01/08/21 History albuterol sulfate [Ventolin HFA] 2 puff INHALATION QID PRN 07/18/19 01/08/21 History carvedilol [Coreg] 12.5 mg PO BID 07/18/19 01/08/21 History escitalopram oxalate [Lexapro] 20 mg PO QAM 07/18/19 01/08/21 History spironolactone [Aldactone] 12.5 mg PO QAM 07/18/19 01/08/21 History tacrolimus [Protopic] 1 applic TOPICAL .Q2D/BID 07/18/19 01/08/21 History nitroglycerin [Nitrostat] 0.4 mg SUBLINGUAL PRN #1 tab 07/22/19 01/08/21 Rx empagliflozin [Jardiance] 25 mg PO DAILY 01/08/21 01/08/21 History topiramate [Topamax] 25 mg PO BID 01/08/21 01/08/21 History Patient History Medical History Cardiomyopathy "idiopathic" Combined systolic and diastolic heart failure "EF 25-29% on echo 09/2016" DM type 2 (diabetes mellitus, type 2) GERD (gastroesophageal reflux disease) Hypertension Morbid obesity with BMI of 45.0-49.9, adult Pulmonary hypertension "moderate per echo 09/2016" Sleep disorder Valvular heart disease "AV possibly bicuspid, severe , mild AR, mild MR, mild TR per echo 09/2016" Vitiligo Family History Other Cancer Social History Smoking Status: Never smoker Cigarettes Per Day: 2; Hx Alcohol Use: No Hx Substance Use: No Preferred Language: Mohawk Communication Ability: Effective Vasc Tech Required: No Beliefs That Will Affect Care: None marital status: Current Living Situation: Alone Current Living Situation Comment: son How many Children do You have: 1 Feels Safe at Home: Yes Safety Concerns: Feels Safe At This Time Assistive Devices: None Review of Systems Review of Systems: All systems reviewed & are unremarkable except as noted in Subjective Physical Exam Physical Exam: Obese, awake alert oriented x3, appears to be mildly fatigued, flushed, heart regular, lungs are clear, abdomen is soft nontender nondistended normal active bowel sounds no peripheral edema, large midline scar in his chest. Results & Data ([facility]) Vital Signs (Past 12 Hours) Vital Signs Temp Pulse Pulse Resp BP BP Pulse Ox 01/09/21 09:20 89 01/09/21 07:43 36.4 C L 84 18 143/89 H 99 01/09/21 04:47 90 01/09/21 03:50 87 12 98 01/09/21 03:48 36.3 C L 87 18 125/87 98 01/08/21 23:32 36.7 C 90 16 124/83 98 01/08/21 23:31 90 16 98 01/08/21 23:03 96 H 15 95/65 L 97 01/08/21 23:00 96 H 15 95/65 L 97 01/08/21 22:10 91 H 15 116/83 96 (1) Diarrhea Diarrhea type: presumed infectious Qualified Code(s): R19.7 - Diarrhea, unspecified (2) Vomiting Nausea presence: unspecified Vomiting Intractability: unspecified Vomiting type: unspecified Qualified Code(s): R11.10 - Vomiting, unspecified
--- NOTE | 2021-01-09 09:48 | Cardiology Consultation ---
Date of Consultation January 09, 2021 Assessment & Plan (1) Cardiomyopathy: (2) Diarrhea: (3) Acute hyperglycemia: (4) Vomiting: (5) Abdominal pain: (6) Hx of aortic valve replacement: GI note is appreciated. From a cardiac standpoint the patient is currently clinically stable. An echocardiogram is planned. If he requires any procedures I think his medications should be optimized and he should proceed. We will follow him with you during his hospital stay. History of Present Illness Attending Physician: Kevin Valdovinos MD History of Present Illness This is a 45-year-old male patient with a complex past cardiac history. In 2015 he underwent emergent aortic valve replacement. At the time of surgery he was estimated to have a left ventricular ejection fraction of 25 to 30%. Following the surgery and after appropriate medication his left ventricular function recovered and his ejection fraction was 55%. He has a history of vitiligo over his right eye which is treated by ophthalmology and dermatology with some visual loss. He is a diabetic with sleep apnea and obesity. In 2018 he was admitted with an overdose to the hospital. He most likely was not taking his cardiac medications. His estimated left ventricular ejection fraction at the time of admission was 30 to 35%. There was also question of possible thrombus on his bioprosthetic aortic valve with his INR being subtherapeutic. He was restarted back on all his medications including his warfarin. His most recent echocardiogram in our office was in July 2020 where he was on appropriate medications and his estimated left ventricular ejection fraction was 50%. The patient has been admitted for nausea, vomiting and abdominal discomfort. He has no ongoing cardiac complaints and denies shortness of breath or chest pain. He is being evaluated by the GI service. Allergies Allergy/AdvReac Type Severity Reaction Status Date / Time No Known Allergies Allergy Verified 01/08/21 21:59 Home Medications Medication Instructions Recorded Confirmed Type aspirin [Ecotrin Low Strength] 81 mg PO HS 01/02/19 01/08/21 History atorvastatin [Lipitor] 80 mg PO HS 01/02/19 01/08/21 History calcipotriene [Dovonex] 1 applic TOPICAL BID 01/02/19 01/08/21 History furosemide [Lasix] 40 mg PO QAM 01/02/19 01/08/21 History glipizide [Glucotrol] 5 mg PO BID 01/02/19 01/08/21 History lisinopril [Zestril] 20 mg PO QAM 01/02/19 01/08/21 History metformin [Fortamet] 1,000 mg PO BIDM 01/02/19 01/08/21 History topiramate [Topamax] 50 mg PO BID 01/02/19 01/08/21 History albuterol sulfate [Ventolin HFA] 2 puff INHALATION QID PRN 07/18/19 01/08/21 History carvedilol [Coreg] 12.5 mg PO BID 07/18/19 01/08/21 History escitalopram oxalate [Lexapro] 20 mg PO QAM 07/18/19 01/08/21 History spironolactone [Aldactone] 12.5 mg PO QAM 07/18/19 01/08/21 History tacrolimus [Protopic] 1 applic TOPICAL .Q2D/BID 07/18/19 01/08/21 History nitroglycerin [Nitrostat] 0.4 mg SUBLINGUAL PRN #1 tab 07/22/19 01/08/21 Rx empagliflozin [Jardiance] 25 mg PO DAILY 01/08/21 01/08/21 History topiramate [Topamax] 25 mg PO BID 01/08/21 01/08/21 History Patient History Medical History (Updated 01/10/21 @ 10:26 by GALEN Zendejas) Cardiomyopathy "idiopathic" Combined systolic and diastolic heart failure "EF 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% on echo 09/2016" DM type 2 (diabetes mellitus, type 2) GERD (gastroesophageal reflux disease) Hypertension Morbid obesity with BMI of 45.0-49.9, adult Pulmonary hypertension "moderate per echo 09/2016" Sleep disorder Valvular heart disease "AV possibly bicuspid, severe , mild AR, mild MR, mild TR per echo 09/2016" Vitiligo Family History Other Cancer Social History Smoking Status: Never smoker Cigarettes Per Day: 2; Hx Alcohol Use: No Hx Substance Use: No Preferred Language: Swedish Communication Ability: Effective Camouflage Specialist Required: No Beliefs That Will Affect Care: None marital status: Life Partner Current Living Situation: Alone Current Living Situation Comment: son How many Children do You have: 1 Feels Safe at Home: Yes Safety Concerns: Feels Safe At This Time Assistive Devices: None Review of Systems Review of Systems: All systems reviewed & are unremarkable except as noted in HPI & below Nothing additional to add. Physical Exam Physical Exam: General: no acute distress and stated age Head: normocephalic, no masses, lesions, tenderness or abnormalities Eyes: conjunctiva are pink and non-injected, sclera clear Neck: supple, no adenopathy, no bruits, normal jugular venous pulse, no hepatojugular reflux Chest: normal shape and normal respiratory effort Lungs: clear to auscultation and percussion Cardiac Exam: - regular rate & rhythm, no murmurs gallops or rubs - normal S1, normal S2 Pulses: 2(+) throughout Abdomen: abdomen soft, non-tender, no abnormal masses and no hepatosplenomegaly Musculoskeletal: no gait disturbance, no joint inflammation, no deforming arthritis Extremities: no edema and no cyanosis Neuro: grossly normal exam Results & Data ([facility]) Vital Signs (Past 12 Hours) Vital Signs Temp Pulse Pulse Resp BP BP Pulse Ox 01/09/21 09:20 89 01/09/21 07:43 36.4 C L 84 18 143/89 H 99 01/09/21 04:47 90 01/09/21 03:50 87 12 98 01/09/21 03:48 36.3 C L 87 18 125/87 98 01/08/21 23:32 36.7 C 90 16 124/83 98 01/08/21 23:31 90 16 98 01/08/21 23:03 96 H 15 95/65 L 97 01/08/21 23:00 96 H 15 95/65 L 97 01/08/21 22:10 91 H 15 116/83 96 Laboratory Results Laboratory Results - last 24 hr 01/08/21 01/08/21 01/08/21 18:44 18:44 18:44 WBC 13.10 H RBC 5.85 Hgb 19.1 H Hct 52.5 H MCV 89.7 MCH 32.6 MCHC 36.4 H RDW Std Deviation 40.9 RDW Coeff of Tyron 12.4 Plt Count 318 MPV 10.4 Immature Gran % (Auto) 0.4 Neut % (Auto) 79.1 Lymph % (Auto) 14.0 [place] % (Auto) 6.0 Eos % (Auto) 0.3 Baso % (Auto) 0.2 Neut # (Auto) 10.36 H Lymph # (Auto) 1.84 [place] # (Auto) 0.78 H Eos # (Auto) 0.04 Baso # (Auto) 0.03 Immature Gran # (Auto) 0.05 H Neutrophils % (Manual) Lymphocytes % (Manual) Monocytes % (Manual) Eosinophils % (Manual) Basophils % (Manual) Neutrophils # (Manual) Total Absolute Neuts Lymphocytes # (Manual) Total Abs Lymphocytes Monocytes # (Manual) Eosinophils # (Manual) Basophils # (Manual) RBC Morphology PT 10.3 INR 1.0 ABG pH ABG pCO2 ABG pO2 ABG HCO3 ABG O2 Saturation ABG Base Excess Abhilash Test VBG pH VBG pCO2 VBG pO2 VBG HCO3 VBG O2 Saturation VBG Base Excess Barometric Pressure Oxygen Given Sodium 128 L Potassium 4.2 Chloride 93 L Carbon Dioxide 21 Anion Gap 15.0 H BUN 25 H Creatinine 1.47 H Est Cr Clr Drug Dosing 78.9 Est GFR ( Amer) 66.3 Est GFR (Non-Af Amer) 57.2 BUN/Creatinine Ratio 17.1 Glucose 384 H* POC Glucose Estimat Average Glucose Hemoglobin A1c Lactate Calcium 9.4 Phosphorus Magnesium Total Bilirubin 0.9 AST 11 L ALT 19 Alkaline Phosphatase 176 H Troponin I 0.020 Total Protein 7.7 Albumin 3.6 Globulin 4.1 H Albumin/Globulin Ratio 0.9 Lipase 189 Beta-Hydroxybutyric Acd 29.52 H Urine Color Urine Appearance Urine pH Ur Specific [place] Urine Protein Urine Glucose (UA) Urine Ketones Urine Blood Urine Nitrite Urine Bilirubin Urine Urobilinogen Ur Leukocyte Esterase Stl C. diff Tox B Gene COVID-19 Eval Order SARS-CoV-2, RNA, NAAT 01/08/21 01/08/21 01/08/21 18:45 19:49 21:00 WBC RBC Hgb Hct MCV MCH MCHC RDW Std Deviation RDW Coeff of Tyron Plt Count MPV Immature Gran % (Auto) Neut % (Auto) Lymph % (Auto) [place] % (Auto) Eos % (Auto) Baso % (Auto) Neut # (Auto) Lymph # (Auto) [place] # (Auto) Eos # (Auto) Baso # (Auto) Immature Gran # (Auto) Neutrophils % (Manual) Lymphocytes % (Manual) Monocytes % (Manual) Eosinophils % (Manual) Basophils % (Manual) Neutrophils # (Manual) Total Absolute Neuts Lymphocytes # (Manual) Total Abs Lymphocytes Monocytes # (Manual) Eosinophils # (Manual) Basophils # (Manual) RBC Morphology PT INR ABG pH ABG pCO2 ABG pO2 ABG HCO3 ABG O2 Saturation ABG Base Excess Abhilash Test VBG pH 7.35 L VBG pCO2 50 VBG pO2 22 VBG HCO3 27 VBG O2 Saturation < 60.0 VBG Base Excess 0.3 Barometric Pressure 740.1 Oxygen Given Sodium Potassium Chloride Carbon Dioxide Anion Gap BUN Creatinine Est Cr Clr Drug Dosing Est GFR ( Amer) Est GFR (Non-Af Amer) BUN/Creatinine Ratio Glucose POC Glucose Estimat Average Glucose Hemoglobin A1c Lactate Calcium Phosphorus Magnesium Total Bilirubin AST ALT Alkaline Phosphatase Troponin I Total Protein Albumin Globulin Albumin/Globulin Ratio Lipase Beta-Hydroxybutyric Acd Urine Color Yellow Urine Appearance Clear Urine pH 5.0 Ur Specific [place] 1.035 H Urine Protein Negative Urine Glucose (UA) 3+ H Urine Ketones 1+ H Urine Blood Negative Urine Nitrite Negative Urine Bilirubin Negative Urine Urobilinogen Negative Ur Leukocyte Esterase Negative Stl C. diff Tox B Gene COVID-19 Eval [facility] SARS-CoV-2, RNA, NAAT 01/08/21 01/08/21 01/08/21 21:00 21:02 23:28 WBC RBC Hgb Hct MCV MCH MCHC RDW Std Deviation RDW Coeff of Tyron Plt Count MPV Immature Gran % (Auto) Neut % (Auto) Lymph % (Auto) [place] % (Auto) Eos % (Auto) Baso % (Auto) Neut # (Auto) Lymph # (Auto) [place] # (Auto) Eos # (Auto) Baso # (Auto) Immature Gran # (Auto) Neutrophils % (Manual) Lymphocytes % (Manual) Monocytes % (Manual) Eosinophils % (Manual) Basophils % (Manual) Neutrophils # (Manual) Total Absolute Neuts Lymphocytes # (Manual) Total Abs Lymphocytes Monocytes # (Manual) Eosinophils # (Manual) Basophils # (Manual) RBC Morphology PT INR ABG pH ABG pCO2 ABG pO2 ABG HCO3 ABG O2 Saturation ABG Base Excess Abhilash Test VBG pH VBG pCO2 VBG pO2 VBG HCO3 VBG O2 Saturation VBG Base Excess Barometric Pressure Oxygen Given Sodium Potassium Chloride Carbon Dioxide Anion Gap BUN Creatinine Est Cr Clr Drug Dosing Est GFR ( Amer) Est GFR (Non-Af Amer) BUN/Creatinine Ratio Glucose POC Glucose 213 H 200 H Estimat Average Glucose Hemoglobin A1c Lactate Calcium Phosphorus Magnesium Total Bilirubin AST ALT Alkaline Phosphatase Troponin I Total Protein Albumin Globulin Albumin/Globulin Ratio Lipase Beta-Hydroxybutyric Acd Urine Color Urine Appearance Urine pH Ur Specific [place] Urine Protein Urine Glucose (UA) Urine Ketones Urine Blood Urine Nitrite Urine Bilirubin Urine Urobilinogen Ur Leukocyte Esterase Stl C. diff Tox B Gene COVID-19 Eval Order SARS-CoV-2, RNA, NAAT NEGATIVE 01/09/21 01/09/21 01/09/21 04:25 05:23 05:23 WBC 11.84 H RBC 5.46 Hgb 17.6 Hct 49.6 MCV 90.8 MCH 32.2 MCHC 35.5 RDW Std Deviation 41.3 RDW Coeff of Tyron 12.6 Plt Count 267 MPV 10.0 Immature Gran % (Auto) Neut % (Auto) Lymph % (Auto) [place] % (Auto) Eos % (Auto) Baso % (Auto) Neut # (Auto) Lymph # (Auto) [place] # (Auto) Eos # (Auto) Baso # (Auto) Immature Gran # (Auto) Neutrophils % (Manual) 77.5 Lymphocytes % (Manual) 19.8 Monocytes % (Manual) 0.9 Eosinophils % (Manual) 0.9 Basophils % (Manual) 0.9 Neutrophils # (Manual) 9.18 H Total Absolute Neuts 9.18 H Lymphocytes # (Manual) 2.34 Total Abs Lymphocytes 2.34 Monocytes # (Manual) 0.11 Eosinophils # (Manual) 0.11 Basophils # (Manual) 0.11 RBC Morphology Unremarkable PT INR ABG pH ABG pCO2 ABG pO2 ABG HCO3 ABG O2 Saturation ABG Base Excess Abhilash Test VBG pH VBG pCO2 VBG pO2 VBG HCO3 VBG O2 Saturation VBG Base Excess Barometric Pressure Oxygen Given Sodium 137 D Potassium 4.1 Chloride 100 Carbon Dioxide 25 Anion Gap 12.0 H BUN 26 H Creatinine 1.00 D Est Cr Clr Drug Dosing 116.7 Est GFR ( Amer) 105.6 Est GFR (Non-Af Amer) 91.1 BUN/Creatinine Ratio 25.5 H Glucose 173 H POC Glucose 166 H Estimat Average Glucose Hemoglobin A1c Lactate Calcium 8.4 L Phosphorus Magnesium 2.0 Total Bilirubin AST ALT Alkaline Phosphatase Troponin I Total Protein Albumin Globulin Albumin/Globulin Ratio Lipase Beta-Hydroxybutyric Acd Urine Color Urine Appearance Urine pH Ur Specific [place] Urine Protein Urine Glucose (UA) Urine Ketones Urine Blood Urine Nitrite Urine Bilirubin Urine Urobilinogen Ur Leukocyte Esterase Stl C. diff Tox B Gene COVID-19 Eval Order SARS-CoV-2, RNA, NAAT 01/09/21 01/09/21 01/09/21 05:23 07:34 09:55 WBC RBC Hgb Hct MCV MCH MCHC RDW Std Deviation RDW Coeff of Tyron Plt Count MPV Immature Gran % (Auto) Neut % (Auto) Lymph % (Auto) [place] % (Auto) Eos % (Auto) Baso % (Auto) Neut # (Auto) Lymph # (Auto) [place] # (Auto) Eos # (Auto) Baso # (Auto) Immature Gran # (Auto) Neutrophils % (Manual) Lymphocytes % (Manual) Monocytes % (Manual) Eosinophils % (Manual) Basophils % (Manual) Neutrophils # (Manual) Total Absolute Neuts Lymphocytes # (Manual) Total Abs Lymphocytes Monocytes # (Manual) Eosinophils # (Manual) Basophils # (Manual) RBC Morphology PT INR ABG pH ABG pCO2 ABG pO2 ABG HCO3 ABG O2 Saturation ABG Base Excess Abhilash Test VBG pH VBG pCO2 VBG pO2 VBG HCO3 VBG O2 Saturation VBG Base Excess Barometric Pressure Oxygen Given Sodium Potassium Chloride Carbon Dioxide Anion Gap BUN Creatinine Est Cr Clr Drug Dosing Est GFR ( Amer) Est GFR (Non-Af Amer) BUN/Creatinine Ratio Glucose POC Glucose 131 H Estimat Average Glucose Pending Hemoglobin A1c Pending Lactate Calcium Phosphorus Magnesium Total Bilirubin AST ALT Alkaline Phosphatase Troponin I Total Protein Albumin Globulin Albumin/Globulin Ratio Lipase Beta-Hydroxybutyric Acd Urine Color Urine Appearance Urine pH Ur Specific [place] Urine Protein Urine Glucose (UA) Urine Ketones Urine Blood Urine Nitrite Urine Bilirubin Urine Urobilinogen Ur Leukocyte Esterase Stl C. diff Tox B Gene Negative Cdiff Gene COVID-19 Eval Order SARS-CoV-2, RNA, NAAT 01/09/21 01/09/21 01/09/21 10:08 10:44 10:45 WBC RBC Hgb Hct MCV MCH MCHC RDW Std Deviation RDW Coeff of Tyron Plt Count MPV Immature Gran % (Auto) Neut % (Auto) Lymph % (Auto) [place] % (Auto) Eos % (Auto) Baso % (Auto) Neut # (Auto) Lymph # (Auto) [place] # (Auto) Eos # (Auto) Baso # (Auto) Immature Gran # (Auto) Neutrophils % (Manual) Lymphocytes % (Manual) Monocytes % (Manual) Eosinophils % (Manual) Basophils % (Manual) Neutrophils # (Manual) Total Absolute Neuts Lymphocytes # (Manual) Total Abs Lymphocytes Monocytes # (Manual) Eosinophils # (Manual) Basophils # (Manual) RBC Morphology PT INR ABG pH ABG pCO2 ABG pO2 ABG HCO3 ABG O2 Saturation ABG Base Excess Abhilash Test VBG pH VBG pCO2 VBG pO2 VBG HCO3 VBG O2 Saturation VBG Base Excess Barometric Pressure Oxygen Given Sodium 136 Potassium 3.7 Chloride 99 Carbon Dioxide 24 Anion Gap 13.0 H BUN 22 H Creatinine 0.87 Est Cr Clr Drug Dosing 134.1 Est GFR ( Amer) 121.7 Est GFR (Non-Af Amer) 105.0 BUN/Creatinine Ratio 25.4 H Glucose 159 H POC Glucose 172 H Estimat Average Glucose Hemoglobin A1c Lactate 1.0 Calcium 8.4 L Phosphorus 3.2 Magnesium 2.1 Total Bilirubin 0.9 AST 10 L ALT 18 Alkaline Phosphatase 151 H Troponin I 0.018 Total Protein 7.0 Albumin 3.3 L Globulin 3.7 Albumin/Globulin Ratio 0.9 Lipase Beta-Hydroxybutyric Acd Urine Color Urine Appearance Urine pH Ur Specific [place] Urine Protein Urine Glucose (UA) Urine Ketones Urine Blood Urine Nitrite Urine Bilirubin Urine Urobilinogen Ur Leukocyte Esterase Stl C. diff Tox B Gene COVID-19 Eval Order SARS-CoV-2, RNA, NAAT 01/09/21 01/09/21 01/09/21 10:45 10:45 11:21 WBC 10.27 RBC 5.23 Hgb 17.0 Hct 47.6 MCV 91.0 MCH 32.5 MCHC 35.7 RDW Std Deviation 41.9 RDW Coeff of Tyron 12.7 Plt Count 305 MPV 10.3 Immature Gran % (Auto) Neut % (Auto) Lymph % (Auto) [place] % (Auto) Eos % (Auto) Baso % (Auto) Neut # (Auto) Lymph # (Auto) [place] # (Auto) Eos # (Auto) Baso # (Auto) Immature Gran # (Auto) Neutrophils % (Manual) Lymphocytes % (Manual) Monocytes % (Manual) Eosinophils % (Manual) Basophils % (Manual) Neutrophils # (Manual) Total Absolute Neuts Lymphocytes # (Manual) Total Abs Lymphocytes Monocytes # (Manual) Eosinophils # (Manual) Basophils # (Manual) RBC Morphology PT INR ABG pH Cancelled ABG pCO2 Cancelled ABG pO2 Cancelled ABG HCO3 Cancelled ABG O2 Saturation Cancelled ABG Base Excess Cancelled Abhilash Test Cancelled VBG pH VBG pCO2 VBG pO2 VBG HCO3 VBG O2 Saturation VBG Base Excess Barometric Pressure Cancelled Oxygen Given Cancelled Sodium Potassium Chloride Carbon Dioxide Anion Gap BUN Creatinine Est Cr Clr Drug Dosing Est GFR ( Amer) Est GFR (Non-Af Amer) BUN/Creatinine Ratio Glucose POC Glucose 144 H Estimat Average Glucose Hemoglobin A1c Lactate Calcium Phosphorus Magnesium Total Bilirubin AST ALT Alkaline Phosphatase Troponin I Total Protein Albumin Globulin Albumin/Globulin Ratio Lipase Beta-Hydroxybutyric Acd Urine Color Urine Appearance Urine pH Ur Specific [place] Urine Protein Urine Glucose (UA) Urine Ketones Urine Blood Urine Nitrite Urine Bilirubin Urine Urobilinogen Ur Leukocyte Esterase Stl C. diff Tox B Gene COVID-19 Eval Order SARS-CoV-2, RNA, NAAT Medications Administered Current Inpatient Medications Acetaminophen (Acetaminophen 325 Mg Tab) 650 mg PO Q4H PRN PRN Reason: Pain or Fever Stop: 02/07/21 23:14 Albuterol (Albuterol Hfa 8 Gm Inhaler) 2 puffs INH QID PRN PRN Reason: Shortness Of Breath Or Wheezing Stop: 02/07/21 23:14 Aspirin (Aspirin 81 Mg Ectab) 81 mg PO HS AMANDA Stop: 02/08/21 20:59 Atorvastatin Calcium (Atorvastatin 40 Mg Tab) 80 mg PO HS AMANDA Stop: 02/08/21 20:59 Carvedilol (Carvedilol 12.5 Mg Tab) 12.5 mg PO BID AMANDA Stop: 02/08/21 08:59 Last Admin: 01/09/21 08:44 Dose: 12.5 mg Documented by: Dextrose (Dextrose 50% 50 Ml Syringe) 25 - 50 ml IV UD PRN; Protocol PRN Reason: Hypoglycemia Protocol Stop: 02/07/21 23:44 Enoxaparin Sodium (Enoxaparin Inj 40 Mg/0.4 Ml Syr) 40 mg SQ Q12H AMANDA Stop: 02/08/21 08:59 Last Admin: 01/09/21 08:40 Dose: 40 mg Documented by: Escitalopram Oxalate (Escitalopram Oxalate 20 Mg Tab) 20 mg PO QAM AMANDA Stop: 02/08/21 08:59 Last Admin: 01/09/21 08:44 Dose: 20 mg Documented by: Glucagon (Glucagon For Inj 1 Mg Vial) 1 mg SQ UD PRN; Protocol PRN Reason: Hypoglycemia Protocol Stop: 02/07/21 23:44 Glucose (Glucose 40% Gel 15 Gm Tube) 15 - 30 gm PO UD PRN; Protocol PRN Reason: Hypoglycemia Protocol Stop: 02/07/21 23:44 Glucose (Glucose 10 Tabs/Tube) 4 - 8 tabs PO UD PRN; Protocol PRN Reason: Hypoglycemia Protocol Stop: 02/07/21 23:44 Sodium Chloride (Nss 1000ml) 1,000 mls @ 125 mls/hr IV .Q8H [facility] Stop: 02/07/21 23:14 Last Admin: 01/09/21 08:38 Dose: 125 mls/hr Documented by: Acetaminophen (Ofirmev) 1,000 mg in 100 mls @ 400 mls/hr IV Q8H PRN PRN Reason: Pain Stop: 01/12/21 10:57 Promethazine HCl 6.25 mg/ (Sodium Chloride) 50.25 mls @ 201 mls/hr IV Q6H PRN PRN Reason: Nausea And Vomiting Stop: 02/08/21 10:59 Potassium Chloride (K Vinod / Wtr) 10 meq in 100 mls @ 100 mls/hr IV Q1H [facility] Stop: 01/09/21 13:59 Insulin Aspart (Insulin Aspart 100 Units/Ml 3 Ml Pen) 0 units SC ACHS [facility] Stop: 02/08/21 07:29 Last Admin: 01/09/21 12:12 Dose: 6 units Documented by: Insulin Glargine (Insulin Glargine Solostar 100 Units/Ml 3 Ml Pen) 0 units SC BID [facility]; Protocol Stop: 02/08/21 08:59 Last Admin: 01/09/21 09:02 Dose: 15 units Documented by: Miscellaneous (Dovonox~Order Awaiting Action) 1 ea N/A QS [facility] Stop: 02/08/21 00:00 Last Admin: 01/09/21 08:53 Dose: Not Given Documented by: Miscellaneous (Protopic~Order Awaiting Action) 1 ea N/A QS AMANDA Stop: 02/08/21 00:00 Last Admin: 01/09/21 10:21 Dose: Not Given Documented by: Miscellaneous (Carbohydrates For Hypoglycemia ) 15 - 30 gm PO UD PRN PRN Reason: Hypoglycemia Treatment Stop: 02/07/21 23:44 Miscellaneous Information (Pharmacy Glycemic Mgmt Consult) 1 ea N/A UD PRN PRN Reason: Consult Stop: 02/07/21 23:23 Morphine Sulfate (Morphine Sulfate 4 Mg/Ml 1 Ml Carp\\Vial) 3 mg IV Q3H PRN PRN Reason: Pain Stop: 01/22/21 23:14 Nitroglycerin (Nitroglycerin Sl 0.4 Mg/Tab Tab) 0.4 mg SL UD PRN PRN Reason: Chest Pain Stop: 02/07/21 23:14 Ondansetron HCl (Ondansetron Inj 2 Mg/Ml 2 Ml Vial) 4 mg IV Q6H PRN PRN Reason: Nausea Stop: 02/07/21 23:14 Topiramate (Topiramate 25 Mg Tab) 25 mg PO BID [facility] Stop: 02/08/21 08:59 Last Admin: 01/09/21 08:41 Dose: 25 mg Documented by: Topiramate (Topiramate 50 Mg Tab) 50 mg PO BID [facility] Stop: 02/08/21 08:59 Last Admin: 01/09/21 08:43 Dose: 50 mg Documented by: (1) Diarrhea Diarrhea type: presumed infectious Qualified Code(s): R19.7 - Diarrhea, unspecified (2) Abdominal pain Abdominal location: unspecified location Qualified Code(s): R10.9 - Unspecified abdominal pain (3) Vomiting Nausea presence: unspecified Vomiting Intractability: unspecified Vomiting type: unspecified Qualified Code(s): R11.10 - Vomiting, unspecified
--- NOTE | 2021-01-09 10:40 | XRay Report ---
XR chest 1V portable HISTORY: 45 years-old Male chest pain acute atypical chest pain COMPARISON: Chest radiograph 01/08/2021 TECHNIQUE: Portable AP view of the chest FINDINGS: Cardiac silhouette is mildly enlarged. Prior median sternotomy. The superior sternotomy wire is fract ured. No pneumothorax, pleural effusion, airspace consolidation or overt pulmonary edema. Bones of th e chest appear grossly intact. IMPRESSION: No acute process. ACT 112: Negative or not required by law. The above report was generated using voice recognition software. It may contain grammatical, syntax o r spelling errors. Electronically signed by: Umer Zhang M.D. 01/09/2021 10:38 AM
[2021-01-09] MEDS ORDERED: ACETAMINOPHEN 1,000 MG/100 ML VIAL IV STA (10:56)
[2021-01-09 10:58] LABS: Hematocrit (blood only) 47.6 % (42-52); Mean Corpuscular Hemoglobin 32.5 pg (25-34); Mean Corpuscular Hgb Conc 35.7 g/dL (32-36); Mean Platelet Volume 10.3 fL (7.4-10.4); Platelet Count 305 K/uL (130-400); RDW Coefficient of Variation 12.7 % (11.5-14.5); RDW Standard Deviation 41.9 fL (36.4-46.3); Red Blood Count 5.23 M/uL (4.7-6.1); White Blood Count 10.27 K/uL (4.8-10.8)
[2021-01-09] MEDS ORDERED: ACETAMINOPHEN 1,000 MG/100 ML VIAL IV PRN (10:58)
[2021-01-09] MEDS ORDERED: PROMETHAZINE HCL 6.25 MG in SODIUM CHLORIDE 0.9% 50 ML IV PRN (11:00)
[2021-01-09 11:14] LABS: Albumin Level 3.3 gm/dl (3.4-5.0); BUN Creatinine Ratio 25.4 (10-20); Calcium 8.4 mg/dl (8.5-10.1); Creatinine Clr Calc Pharmacy 134.1 ml/min; Est GFR (African American) 121.7; Magnesium 2.1 mg/dl (1.8-2.4); Potassium 3.7 mmol/L (3.5-5.1)
[2021-01-09 11:19] LABS: Albumin Globulin Ratio 0.9 (0.9-2); Bilirubin,Total 0.9 mg/dl (0.2-1); Globulin 3.7 gm/dl (2.5-4.0); Phosphorus 3.2 mg/dl (2.5-4.9); Troponin I 0.018 ng/ml (0-0.045)
[2021-01-09 12:47] LABS: Base Excess ABG -0.3 mEq/L (-9-1.8); HCO3 ABG 24 mmol/L (19-24); PCO2 ABG 38 mmHg (35-46); PO2 ABG 77 mmHg (80-95); pH ABG 7.42 (7.35-7.45)
[2021-01-09 12:49] LABS: Allen Test Pos (Pos)
--- NOTE | 2021-01-09 13:05 | Hospitalist Progress Note ---
Date of Service January 09, 2021 Assessment & Plan (1) Colitis: (2) Diarrhea: (3) Vomiting: (4) Acute hyperglycemia: This is a 45-year-old male who presents with nausea, vomiting, diarrhea and hyperglycemia. Colitis found on abd. CT. 1. Nausea, vomiting, diarrhea, nonspecific colitis on the CAT scan, possible infectious gastroenteritis. (Patient's colleagues reported similar symptoms). SARS-CoV-2 negative. Clostridium difficile - negative Stool cultures - pending. Cont. IV fluids, clear liquid diet as tolerated GI consulted -appreciate their input 2. Hyperglycemia, anion gap is 15. No acidosis. Received IV Insulin in the ER. We will hold his home medication. Start Lantus and insulin sliding scale while inpt Glycemic pharmacy consult. Monitor the blood sugars. 3. Acute kidney injury. Creatinine 1.4, baseline creatinine 0.8. Holding his diuretics and lisinopril. Getting fluids. Creatinine now improved 4. Hyponatremia, mostly pseudohyponatremia from elevated sugars. Now sodium wnl as blood glucose level improved Resolved 5. Obstructive sleep apnea. CPAP at bedtime. 6. Chronic diastolic and systolic congestive heart failure, ejection fraction 35-40% EF on echo done in June 2019. EF 50% on echo in 07/2020 Holding his Lasix, getting fluids. Monitor for any volume overload. 7. Hypertension. Continue his Coreg. We will hold Lasix and lisinopril and spironolactone. Monitor the blood pressure. 8. Vitiligo. Continue his home topical creams. (His home topical creams are not available in our pharmacy, contacted patient's enoc, who is able to bring them in however she reports that patient has not been using them for some time). 9. Hyperlipidemia. Continue statin. 10. History of coronary artery disease. Continue his aspirin, statin and beta- betty. 11. Depression. Continue his Lexapro. 12. History of migraine, on Topamax. 13. s/p AVR bioprosthetic valve. Question of clot on prosthetic valve supposed to be on Coumadin. Stopped taking Coumadin. Will consult cardiology for further recommendations as no clot seen on echo from 07/2020. Since this patient was lost to follow-up, will check echo during this admission, and will discuss with cardiology. INR 1.0 on admission. Discussed with patient's enoc, she reports that patient's been taking 5 mg of warfarin daily. 14. DVT prophylaxis, sequential compression devices, Lovenox 15. Disposition: Admit to med tele. Expect discharge home and follow with family doctor. Admission and Anticipated Discharge Date Admission Date: January 08, 2021 Subjective Pt seen in follow up of dehydration, diarrhea/ colitis, hyperglycemia This AM patient was not feeling well, nauseous after breakfast/clear liquid diet, complaining of chest pain, abdominal pain, and feeling as he would faint He did have loose stools this morning, sample was sent to laboratory Patient was quite hypertensive this morning when feeling unwell, however that settled soon after EKG, chest x-ray, extensive blood work ordered, no significant changes found since his evaluation in ER On my re-evaluation, patient resting in bed, in no acute distress Review of Systems Review of Systems: All systems reviewed & are unremarkable except as noted in HPI & below Constitutional: no fever and no chills Respiratory: no cough and no dyspnea Cardiovascular: no chest pain and no palpitations Gastrointestinal: no abdominal pain, no nausea and no vomiting Physical Exam Physical Exam: GENERAL: Obese male sitting up in bed, uncomfortable due to abdominal pain, nausea HEENT: NC/AT, Pupils equal, round, and reactive to light. Oral mucosa is dry. NECK: No JVD, no neck masses seen. CARDIOVASCULAR: S1, S2, regular rate and rhythm, no murmur, no gallop. RESPIRATORY SYSTEM: Normal AP diameter. No accessory muscle use. No wheezing, no crackles. ABDOMEN: Soft, bowel sounds present. Mild abdominal diffuse discomfort. No guarding, no rigidity. No distention. NEURO: Alert and oriented answering questions appropriately, moves extremities spontaneously EXTREMITIES: No edema, no erythema. SKIN: White/ depigmented spot seen on the R face c/w vitiligo. Results & Data Results & Data ([facility]) Vital Signs (Past 12 Hours) Vital Signs Temp Pulse Pulse Resp BP Pulse Ox 01/09/21 11:11 36.7 C 80 18 131/88 94 01/09/21 09:20 89 01/09/21 07:43 36.4 C L 84 18 143/89 H 99 01/09/21 04:47 90 01/09/21 03:50 87 12 98 01/09/21 03:48 36.3 C L 87 18 125/87 98 Laboratory Results 01/09/21 01/09/21 01/09/21 Range/Units 12:36 11:21 10:45 WBC (4.8-10.8) K/uL RBC (4.7-6.1) M/uL Hgb (14.0-18.0) g/dL Hct (42-52) % MCV (80-100) fL MCH (25-34) pg MCHC (32-36) g/dL RDW Std Deviation (36.4-46.3) fL RDW Coeff of Tyron (11.5-14.5) % Plt Count (130-400) K/uL MPV (7.4-10.4) fL Immature Gran % (Auto) % Neut % (Auto) % Lymph % (Auto) % Drew % (Auto) % Eos % (Auto) % Baso % (Auto) % Neut # (Auto) (1.4-6.5) K/uL Lymph # (Auto) (1.2-3.4) K/uL Drew # (Auto) (0.11-0.59) K/uL Eos # (Auto) (0-0.5) K/uL Baso # (Auto) (0-0.2) K/uL Immature Gran # (Auto) (0.00-0.02) K/uL Neutrophils % (Manual) % Lymphocytes % (Manual) % Monocytes % (Manual) % Eosinophils % (Manual) % Basophils % (Manual) % Neutrophils # (Manual) (1.4-6.5) K/uL Total Absolute Neuts (1.4-6.5) K/uL Lymphocytes # (Manual) (1.2-3.4) K/uL Total Abs Lymphocytes (1.2-3.4) K/uL Monocytes # (Manual) (0.11-0.59) K/uL Eosinophils # (Manual) (0-0.5) K/uL Basophils # (Manual) (0-0.2) K/uL RBC Morphology PT (9.0-12.0) Seconds INR (0.9-1.1) ABG pH 7.42 Cancelled ABG pCO2 38 Cancelled ABG pO2 77 L Cancelled ABG HCO3 24 Cancelled ABG O2 Saturation 96.0 H Cancelled ABG Base Excess -0.3 Cancelled Abhilash Test Pos Cancelled VBG pH (7.36-7.41) VBG pCO2 (38-50) mmHg VBG pO2 mmHg VBG HCO3 mmol/L VBG O2 Saturation % VBG Base Excess mEq/L Barometric Pressure 744.5 Cancelled mm/Hg Oxygen Given ROOM AIR Cancelled Sodium (136-145) mmol/L Potassium (3.5-5.1) mmol/L Chloride (98-107) mmol/L Carbon Dioxide (21-32) mmol/L Anion Gap (3-11) BUN (7-18) mg/dl Creatinine (0.6-1.4) mg/dl Est Cr Clr Drug Dosing ml/min Est GFR ( Amer) Est GFR (Non-Af Amer) BUN/Creatinine Ratio (10-20) Glucose (70-99) mg/dl POC Glucose 144 H (70-99) mg/dl Estimat Average Glucose Hemoglobin A1c Lactate (0.4-2.0) mmol/L Calcium (8.5-10.1) mg/dl Phosphorus (2.5-4.9) mg/dl Magnesium (1.8-2.4) mg/dl Total Bilirubin (0.2-1) mg/dl AST (15-37) U/L ALT (12-78) U/L Alkaline Phosphatase (45-117) U/L Troponin I (0-0.045) ng/ml Total Protein (6.4-8.2) gm/dl Albumin (3.4-5.0) gm/dl Globulin (2.5-4.0) gm/dl Albumin/Globulin Ratio (0.9-2) Lipase (73-393) U/L Beta-Hydroxybutyric Acd (0.2-2.81) mg/dl Urine Color Urine Appearance (Clear) Urine pH (4.5-7.5) Ur Specific [place] (1.000-1.030) Urine Protein (Negative) Urine Glucose (UA) (Negative) Urine Ketones (Negative) Urine Blood (Negative) Urine Nitrite (Negative) Urine Bilirubin (Negative) Urine Urobilinogen (Negative) Ur Leukocyte Esterase (Negative) Stl C. diff Tox B Gene (Neg) COVID-19 Eval Order SARS-CoV-2, RNA, NAAT (NEGATIVE) 02/21/21 02/21/21 02/21/21 Range/Units 10:45 10:45 10:44 WBC 10.27 (4.8-10.8) K/uL RBC 5.23 (4.7-6.1) M/uL Hgb 17.0 (14.0-18.0) g/dL Hct 47.6 (42-52) % MCV 91.0 (80-100) fL MCH 32.5 (25-34) pg MCHC 35.7 (32-36) g/dL RDW Std Deviation 41.9 (36.4-46.3) fL RDW Coeff of Tyron 12.7 (11.5-14.5) % Plt Count 305 (130-400) K/uL MPV 10.3 (7.4-10.4) fL Immature Gran % (Auto) % Neut % (Auto) % Lymph % (Auto) % Drew % (Auto) % Eos % (Auto) % Baso % (Auto) % Neut # (Auto) (1.4-6.5) K/uL Lymph # (Auto) (1.2-3.4) K/uL Drew # (Auto) (0.11-0.59) K/uL Eos # (Auto) (0-0.5) K/uL Baso # (Auto) (0-0.2) K/uL Immature Gran # (Auto) (0.00-0.02) K/uL Neutrophils % (Manual) % Lymphocytes % (Manual) % Monocytes % (Manual) % Eosinophils % (Manual) % Basophils % (Manual) % Neutrophils # (Manual) (1.4-6.5) K/uL Total Absolute Neuts (1.4-6.5) K/uL Lymphocytes # (Manual) (1.2-3.4) K/uL Total Abs Lymphocytes (1.2-3.4) K/uL Monocytes # (Manual) (0.11-0.59) K/uL Eosinophils # (Manual) (0-0.5) K/uL Basophils # (Manual) (0-0.2) K/uL RBC Morphology PT (9.0-12.0) Seconds INR (0.9-1.1) ABG pH ABG pCO2 ABG pO2 ABG HCO3 ABG O2 Saturation ABG Base Excess Abhilash Test VBG pH (7.36-7.41) VBG pCO2 (38-50) mmHg VBG pO2 mmHg VBG HCO3 mmol/L VBG O2 Saturation % VBG Base Excess mEq/L Barometric Pressure mm/Hg Oxygen Given Sodium 136 (136-145) mmol/L Potassium 3.7 (3.5-5.1) mmol/L Chloride 99 (98-107) mmol/L Carbon Dioxide 24 (21-32) mmol/L Anion Gap 13.0 H (3-11) BUN 22 H (7-18) mg/dl Creatinine 0.87 (0.6-1.4) mg/dl Est Cr Clr Drug Dosing 134.1 ml/min Est GFR ( Amer) 121.7 Est GFR (Non-Af Amer) 105.0 BUN/Creatinine Ratio 25.4 H (10-20) Glucose 159 H (70-99) mg/dl POC Glucose (70-99) mg/dl Estimat Average Glucose Hemoglobin A1c Lactate 1.0 (0.4-2.0) mmol/L Calcium 8.4 L (8.5-10.1) mg/dl Phosphorus 3.2 (2.5-4.9) mg/dl Magnesium 2.1 (1.8-2.4) mg/dl Total Bilirubin 0.9 (0.2-1) mg/dl AST 10 L (15-37) U/L ALT 18 (12-78) U/L Alkaline Phosphatase 151 H (45-117) U/L Troponin I 0.018 (0-0.045) ng/ml Total Protein 7.0 (6.4-8.2) gm/dl Albumin 3.3 L (3.4-5.0) gm/dl Globulin 3.7 (2.5-4.0) gm/dl Albumin/Globulin Ratio 0.9 (0.9-2) Lipase (73-393) U/L Beta-Hydroxybutyric Acd (0.2-2.81) mg/dl Urine Color Urine Appearance (Clear) Urine pH (4.5-7.5) Ur Specific [place] (1.000-1.030) Urine Protein (Negative) Urine Glucose (UA) (Negative) Urine Ketones (Negative) Urine Blood (Negative) Urine Nitrite (Negative) Urine Bilirubin (Negative) Urine Urobilinogen (Negative) Ur Leukocyte Esterase (Negative) Stl C. diff Tox B Gene (Neg) COVID-19 Eval Order SARS-CoV-2, RNA, NAAT (NEGATIVE) 01/09/21 01/09/21 01/09/21 Range/Units 10:08 09:55 07:34 WBC (4.8-10.8) K/uL RBC (4.7-6.1) M/uL Hgb (14.0-18.0) g/dL Hct (42-52) % MCV (80-100) fL MCH (25-34) pg MCHC (32-36) g/dL RDW Std Deviation (36.4-46.3) fL RDW Coeff of Tyron (11.5-14.5) % Plt Count (130-400) K/uL MPV (7.4-10.4) fL Immature Gran % (Auto) % Neut % (Auto) % Lymph % (Auto) % Drew % (Auto) % Eos % (Auto) % Baso % (Auto) % Neut # (Auto) (1.4-6.5) K/uL Lymph # (Auto) (1.2-3.4) K/uL Drew # (Auto) (0.11-0.59) K/uL Eos # (Auto) (0-0.5) K/uL Baso # (Auto) (0-0.2) K/uL Immature Gran # (Auto) (0.00-0.02) K/uL Neutrophils % (Manual) % Lymphocytes % (Manual) % Monocytes % (Manual) % Eosinophils % (Manual) % Basophils % (Manual) % Neutrophils # (Manual) (1.4-6.5) K/uL Total Absolute Neuts (1.4-6.5) K/uL Lymphocytes # (Manual) (1.2-3.4) K/uL Total Abs Lymphocytes (1.2-3.4) K/uL Monocytes # (Manual) (0.11-0.59) K/uL Eosinophils # (Manual) (0-0.5) K/uL Basophils # (Manual) (0-0.2) K/uL RBC Morphology PT (9.0-12.0) Seconds INR (0.9-1.1) ABG pH ABG pCO2 ABG pO2 ABG HCO3 ABG O2 Saturation ABG Base Excess Abhilash Test VBG pH (7.36-7.41) VBG pCO2 (38-50) mmHg VBG pO2 mmHg VBG HCO3 mmol/L VBG O2 Saturation % VBG Base Excess mEq/L Barometric Pressure mm/Hg Oxygen Given Sodium (136-145) mmol/L Potassium (3.5-5.1) mmol/L Chloride (98-107) mmol/L Carbon Dioxide (21-32) mmol/L Anion Gap (3-11) BUN (7-18) mg/dl Creatinine (0.6-1.4) mg/dl Est Cr Clr Drug Dosing ml/min Est GFR ( Amer) Est GFR (Non-Af Amer) BUN/Creatinine Ratio (10-20) Glucose (70-99) mg/dl POC Glucose 172 H 131 H (70-99) mg/dl Estimat Average Glucose Hemoglobin A1c Lactate (0.4-2.0) mmol/L Calcium (8.5-10.1) mg/dl Phosphorus (2.5-4.9) mg/dl Magnesium (1.8-2.4) mg/dl Total Bilirubin (0.2-1) mg/dl AST (15-37) U/L ALT (12-78) U/L Alkaline Phosphatase (45-117) U/L Troponin I (0-0.045) ng/ml Total Protein (6.4-8.2) gm/dl Albumin (3.4-5.0) gm/dl Globulin (2.5-4.0) gm/dl Albumin/Globulin Ratio (0.9-2) Lipase (73-393) U/L Beta-Hydroxybutyric Acd (0.2-2.81) mg/dl Urine Color Urine Appearance (Clear) Urine pH (4.5-7.5) Ur Specific [place] (1.000-1.030) Urine Protein (Negative) Urine Glucose (UA) (Negative) Urine Ketones (Negative) Urine Blood (Negative) Urine Nitrite (Negative) Urine Bilirubin (Negative) Urine Urobilinogen (Negative) Ur Leukocyte Esterase (Negative) Stl C. diff Tox B Gene Negative Cdiff Gene (Neg) COVID-19 Eval Order SARS-CoV-2, RNA, NAAT (NEGATIVE) 01/09/21 01/09/21 01/09/21 Range/Units 05:23 05:23 05:23 WBC 11.84 H (4.8-10.8) K/uL RBC 5.46 (4.7-6.1) M/uL Hgb 17.6 (14.0-18.0) g/dL Hct 49.6 (42-52) % MCV 90.8 (80-100) fL MCH 32.2 (25-34) pg MCHC 35.5 (32-36) g/dL RDW Std Deviation 41.3 (36.4-46.3) fL RDW Coeff of Tyron 12.6 (11.5-14.5) % Plt Count 267 (130-400) K/uL MPV 10.0 (7.4-10.4) fL Immature Gran % (Auto) % Neut % (Auto) % Lymph % (Auto) % Drew % (Auto) % Eos % (Auto) % Baso % (Auto) % Neut # (Auto) (1.4-6.5) K/uL Lymph # (Auto) (1.2-3.4) K/uL Drew # (Auto) (0.11-0.59) K/uL Eos # (Auto) (0-0.5) K/uL Baso # (Auto) (0-0.2) K/uL Immature Gran # (Auto) (0.00-0.02) K/uL Neutrophils % (Manual) 77.5 % Lymphocytes % (Manual) 19.8 % Monocytes % (Manual) 0.9 % Eosinophils % (Manual) 0.9 % Basophils % (Manual) 0.9 % Neutrophils # (Manual) 9.18 H (1.4-6.5) K/uL Total Absolute Neuts 9.18 H (1.4-6.5) K/uL Lymphocytes # (Manual) 2.34 (1.2-3.4) K/uL Total Abs Lymphocytes 2.34 (1.2-3.4) K/uL Monocytes # (Manual) 0.11 (0.11-0.59) K/uL Eosinophils # (Manual) 0.11 (0-0.5) K/uL Basophils # (Manual) 0.11 (0-0.2) K/uL RBC Morphology Unremarkable PT (9.0-12.0) Seconds INR (0.9-1.1) ABG pH ABG pCO2 ABG pO2 ABG HCO3 ABG O2 Saturation ABG Base Excess Abhilash Test VBG pH (7.36-7.41) VBG pCO2 (38-50) mmHg VBG pO2 mmHg VBG HCO3 mmol/L VBG O2 Saturation % VBG Base Excess mEq/L Barometric Pressure mm/Hg Oxygen Given Sodium 137 D (136-145) mmol/L Potassium 4.1 (3.5-5.1) mmol/L Chloride 100 (98-107) mmol/L Carbon Dioxide 25 (21-32) mmol/L Anion Gap 12.0 H (3-11) BUN 26 H (7-18) mg/dl Creatinine 1.00 D (0.6-1.4) mg/dl Est Cr Clr Drug Dosing 116.7 ml/min Est GFR ( Amer) 105.6 Est GFR (Non-Af Amer) 91.1 BUN/Creatinine Ratio 25.5 H (10-20) Glucose 173 H (70-99) mg/dl POC Glucose (70-99) mg/dl Estimat Average Glucose Pending Hemoglobin A1c Pending Lactate (0.4-2.0) mmol/L Calcium 8.4 L (8.5-10.1) mg/dl Phosphorus (2.5-4.9) mg/dl Magnesium 2.0 (1.8-2.4) mg/dl Total Bilirubin (0.2-1) mg/dl AST (15-37) U/L ALT (12-78) U/L Alkaline Phosphatase (45-117) U/L Troponin I (0-0.045) ng/ml Total Protein (6.4-8.2) gm/dl Albumin (3.4-5.0) gm/dl Globulin (2.5-4.0) gm/dl Albumin/Globulin Ratio (0.9-2) Lipase (73-393) U/L Beta-Hydroxybutyric Acd (0.2-2.81) mg/dl Urine Color Urine Appearance (Clear) Urine pH (4.5-7.5) Ur Specific [place] (1.000-1.030) Urine Protein (Negative) Urine Glucose (UA) (Negative) Urine Ketones (Negative) Urine Blood (Negative) Urine Nitrite (Negative) Urine Bilirubin (Negative) Urine Urobilinogen (Negative) Ur Leukocyte Esterase (Negative) Stl C. diff Tox B Gene (Neg) COVID-19 Eval Order SARS-CoV-2, RNA, NAAT (NEGATIVE) 01/09/21 01/08/21 01/08/21 Range/Units 04:25 23:28 21:02 WBC (4.8-10.8) K/uL RBC (4.7-6.1) M/uL Hgb (14.0-18.0) g/dL Hct (42-52) % MCV (80-100) fL MCH (25-34) pg MCHC (32-36) g/dL RDW Std Deviation (36.4-46.3) fL RDW Coeff of Tyron (11.5-14.5) % Plt Count (130-400) K/uL MPV (7.4-10.4) fL Immature Gran % (Auto) % Neut % (Auto) % Lymph % (Auto) % Drew % (Auto) % Eos % (Auto) % Baso % (Auto) % Neut # (Auto) (1.4-6.5) K/uL Lymph # (Auto) (1.2-3.4) K/uL Drew # (Auto) (0.11-0.59) K/uL Eos # (Auto) (0-0.5) K/uL Baso # (Auto) (0-0.2) K/uL Immature Gran # (Auto) (0.00-0.02) K/uL Neutrophils % (Manual) % Lymphocytes % (Manual) % Monocytes % (Manual) % Eosinophils % (Manual) % Basophils % (Manual) % Neutrophils # (Manual) (1.4-6.5) K/uL Total Absolute Neuts (1.4-6.5) K/uL Lymphocytes # (Manual) (1.2-3.4) K/uL Total Abs Lymphocytes (1.2-3.4) K/uL Monocytes # (Manual) (0.11-0.59) K/uL Eosinophils # (Manual) (0-0.5) K/uL Basophils # (Manual) (0-0.2) K/uL RBC Morphology PT (9.0-12.0) Seconds INR (0.9-1.1) ABG pH ABG pCO2 ABG pO2 ABG HCO3 ABG O2 Saturation ABG Base Excess Abhilash Test VBG pH (7.36-7.41) VBG pCO2 (38-50) mmHg VBG pO2 mmHg VBG HCO3 mmol/L VBG O2 Saturation % VBG Base Excess mEq/L Barometric Pressure mm/Hg Oxygen Given Sodium (136-145) mmol/L Potassium (3.5-5.1) mmol/L Chloride (98-107) mmol/L Carbon Dioxide (21-32) mmol/L Anion Gap (3-11) BUN (7-18) mg/dl Creatinine (0.6-1.4) mg/dl Est Cr Clr Drug Dosing ml/min Est GFR ( Amer) Est GFR (Non-Af Amer) BUN/Creatinine Ratio (10-20) Glucose (70-99) mg/dl POC Glucose 166 H 200 H 213 H (70-99) mg/dl Estimat Average Glucose Hemoglobin A1c Lactate (0.4-2.0) mmol/L Calcium (8.5-10.1) mg/dl Phosphorus (2.5-4.9) mg/dl Magnesium (1.8-2.4) mg/dl Total Bilirubin (0.2-1) mg/dl AST (15-37) U/L ALT (12-78) U/L Alkaline Phosphatase (45-117) U/L Troponin I (0-0.045) ng/ml Total Protein (6.4-8.2) gm/dl Albumin (3.4-5.0) gm/dl Globulin (2.5-4.0) gm/dl Albumin/Globulin Ratio (0.9-2) Lipase (73-393) U/L Beta-Hydroxybutyric Acd (0.2-2.81) mg/dl Urine Color Urine Appearance (Clear) Urine pH (4.5-7.5) Ur Specific [place] (1.000-1.030) Urine Protein (Negative) Urine Glucose (UA) (Negative) Urine Ketones (Negative) Urine Blood (Negative) Urine Nitrite (Negative) Urine Bilirubin (Negative) Urine Urobilinogen (Negative) Ur Leukocyte Esterase (Negative) Stl C. diff Tox B Gene (Neg) COVID-19 Eval Order SARS-CoV-2, RNA, NAAT (NEGATIVE) 01/08/21 01/08/21 01/08/21 Range/Units 21:00 21:00 19:49 WBC (4.8-10.8) K/uL RBC (4.7-6.1) M/uL Hgb (14.0-18.0) g/dL Hct (42-52) % MCV (80-100) fL MCH (25-34) pg MCHC (32-36) g/dL RDW Std Deviation (36.4-46.3) fL RDW Coeff of Tyron (11.5-14.5) % Plt Count (130-400) K/uL MPV (7.4-10.4) fL Immature Gran % (Auto) % Neut % (Auto) % Lymph % (Auto) % Drew % (Auto) % Eos % (Auto) % Baso % (Auto) % Neut # (Auto) (1.4-6.5) K/uL Lymph # (Auto) (1.2-3.4) K/uL Drew # (Auto) (0.11-0.59) K/uL Eos # (Auto) (0-0.5) K/uL Baso # (Auto) (0-0.2) K/uL Immature Gran # (Auto) (0.00-0.02) K/uL Neutrophils % (Manual) % Lymphocytes % (Manual) % Monocytes % (Manual) % Eosinophils % (Manual) % Basophils % (Manual) % Neutrophils # (Manual) (1.4-6.5) K/uL Total Absolute Neuts (1.4-6.5) K/uL Lymphocytes # (Manual) (1.2-3.4) K/uL Total Abs Lymphocytes (1.2-3.4) K/uL Monocytes # (Manual) (0.11-0.59) K/uL Eosinophils # (Manual) (0-0.5) K/uL Basophils # (Manual) (0-0.2) K/uL RBC Morphology PT (9.0-12.0) Seconds INR (0.9-1.1) ABG pH ABG pCO2 ABG pO2 ABG HCO3 ABG O2 Saturation ABG Base Excess Abhilash Test VBG pH 7.35 L (7.36-7.41) VBG pCO2 50 (38-50) mmHg VBG pO2 22 mmHg VBG HCO3 27 mmol/L VBG O2 Saturation < 60.0 % VBG Base Excess 0.3 mEq/L Barometric Pressure 740.1 mm/Hg Oxygen Given Sodium (136-145) mmol/L Potassium (3.5-5.1) mmol/L Chloride (98-107) mmol/L Carbon Dioxide (21-32) mmol/L Anion Gap (3-11) BUN (7-18) mg/dl Creatinine (0.6-1.4) mg/dl Est Cr Clr Drug Dosing ml/min Est GFR ( Amer) Est GFR (Non-Af Amer) BUN/Creatinine Ratio (10-20) Glucose (70-99) mg/dl POC Glucose (70-99) mg/dl Estimat Average Glucose Hemoglobin A1c Lactate (0.4-2.0) mmol/L Calcium (8.5-10.1) mg/dl Phosphorus (2.5-4.9) mg/dl Magnesium (1.8-2.4) mg/dl Total Bilirubin (0.2-1) mg/dl AST (15-37) U/L ALT (12-78) U/L Alkaline Phosphatase (45-117) U/L Troponin I (0-0.045) ng/ml Total Protein (6.4-8.2) gm/dl Albumin (3.4-5.0) gm/dl Globulin (2.5-4.0) gm/dl Albumin/Globulin Ratio (0.9-2) Lipase (73-393) U/L Beta-Hydroxybutyric Acd (0.2-2.81) mg/dl Urine Color Urine Appearance (Clear) Urine pH (4.5-7.5) Ur Specific [place] (1.000-1.030) Urine Protein (Negative) Urine Glucose (UA) (Negative) Urine Ketones (Negative) Urine Blood (Negative) Urine Nitrite (Negative) Urine Bilirubin (Negative) Urine Urobilinogen (Negative) Ur Leukocyte Esterase (Negative) Stl C. diff Tox B Gene (Neg) COVID-19 Eval Order Covid19 IDNow [facility] SARS-CoV-2, RNA, NAAT NEGATIVE (NEGATIVE) 01/08/21 01/08/21 01/08/21 Range/Units 18:45 18:44 18:44 WBC (4.8-10.8) K/uL RBC (4.7-6.1) M/uL Hgb (14.0-18.0) g/dL Hct (42-52) % MCV (80-100) fL MCH (25-34) pg MCHC (32-36) g/dL RDW Std Deviation (36.4-46.3) fL RDW Coeff of Tyron (11.5-14.5) % Plt Count (130-400) K/uL MPV (7.4-10.4) fL Immature Gran % (Auto) % Neut % (Auto) % Lymph % (Auto) % Drew % (Auto) % Eos % (Auto) % Baso % (Auto) % Neut # (Auto) (1.4-6.5) K/uL Lymph # (Auto) (1.2-3.4) K/uL Drew # (Auto) (0.11-0.59) K/uL Eos # (Auto) (0-0.5) K/uL Baso # (Auto) (0-0.2) K/uL Immature Gran # (Auto) (0.00-0.02) K/uL Neutrophils % (Manual) % Lymphocytes % (Manual) % Monocytes % (Manual) % Eosinophils % (Manual) % Basophils % (Manual) % Neutrophils # (Manual) (1.4-6.5) K/uL Total Absolute Neuts (1.4-6.5) K/uL Lymphocytes # (Manual) (1.2-3.4) K/uL Total Abs Lymphocytes (1.2-3.4) K/uL Monocytes # (Manual) (0.11-0.59) K/uL Eosinophils # (Manual) (0-0.5) K/uL Basophils # (Manual) (0-0.2) K/uL RBC Morphology PT 10.3 (9.0-12.0) Seconds INR 1.0 (0.9-1.1) ABG pH ABG pCO2 ABG pO2 ABG HCO3 ABG O2 Saturation ABG Base Excess Abhilash Test VBG pH (7.36-7.41) VBG pCO2 (38-50) mmHg VBG pO2 mmHg VBG HCO3 mmol/L VBG O2 Saturation % VBG Base Excess mEq/L Barometric Pressure mm/Hg Oxygen Given Sodium 128 L (136-145) mmol/L Potassium 4.2 (3.5-5.1) mmol/L Chloride 93 L (98-107) mmol/L Carbon Dioxide 21 (21-32) mmol/L Anion Gap 15.0 H (3-11) BUN 25 H (7-18) mg/dl Creatinine 1.47 H (0.6-1.4) mg/dl Est Cr Clr Drug Dosing 78.9 ml/min Est GFR ( Amer) 66.3 Est GFR (Non-Af Amer) 57.2 BUN/Creatinine Ratio 17.1 (10-20) Glucose 384 H* (70-99) mg/dl POC Glucose (70-99) mg/dl Estimat Average Glucose Hemoglobin A1c Lactate (0.4-2.0) mmol/L Calcium 9.4 (8.5-10.1) mg/dl Phosphorus (2.5-4.9) mg/dl Magnesium (1.8-2.4) mg/dl Total Bilirubin 0.9 (0.2-1) mg/dl AST 11 L (15-37) U/L ALT 19 (12-78) U/L Alkaline Phosphatase 176 H (45-117) U/L Troponin I 0.020 (0-0.045) ng/ml Total Protein 7.7 (6.4-8.2) gm/dl Albumin 3.6 (3.4-5.0) gm/dl Globulin 4.1 H (2.5-4.0) gm/dl Albumin/Globulin Ratio 0.9 (0.9-2) Lipase 189 (73-393) U/L Beta-Hydroxybutyric Acd 29.52 H (0.2-2.81) mg/dl Urine Color Yellow Urine Appearance Clear (Clear) Urine pH 5.0 (4.5-7.5) Ur Specific [place] 1.035 H (1.000-1.030) Urine Protein Negative (Negative) Urine Glucose (UA) 3+ H (Negative) Urine Ketones 1+ H (Negative) Urine Blood Negative (Negative) Urine Nitrite Negative (Negative) Urine Bilirubin Negative (Negative) Urine Urobilinogen Negative (Negative) Ur Leukocyte Esterase Negative (Negative) Stl C. diff Tox B Gene (Neg) COVID-19 Eval Order SARS-CoV-2, RNA, NAAT (NEGATIVE) 01/08/21 Range/Units 18:44 WBC 13.10 H (4.8-10.8) K/uL RBC 5.85 (4.7-6.1) M/uL Hgb 19.1 H (14.0-18.0) g/dL Hct 52.5 H (42-52) % MCV 89.7 (80-100) fL MCH 32.6 (25-34) pg MCHC 36.4 H (32-36) g/dL RDW Std Deviation 40.9 (36.4-46.3) fL RDW Coeff of Tyron 12.4 (11.5-14.5) % Plt Count 318 (130-400) K/uL MPV 10.4 (7.4-10.4) fL Immature Gran % (Auto) 0.4 % Neut % (Auto) 79.1 % Lymph % (Auto) 14.0 % Drew % (Auto) 6.0 % Eos % (Auto) 0.3 % Baso % (Auto) 0.2 % Neut # (Auto) 10.36 H (1.4-6.5) K/uL Lymph # (Auto) 1.84 (1.2-3.4) K/uL Drew # (Auto) 0.78 H (0.11-0.59) K/uL Eos # (Auto) 0.04 (0-0.5) K/uL Baso # (Auto) 0.03 (0-0.2) K/uL Immature Gran # (Auto) 0.05 H (0.00-0.02) K/uL Neutrophils % (Manual) % Lymphocytes % (Manual) % Monocytes % (Manual) % Eosinophils % (Manual) % Basophils % (Manual) % Neutrophils # (Manual) (1.4-6.5) K/uL Total Absolute Neuts (1.4-6.5) K/uL Lymphocytes # (Manual) (1.2-3.4) K/uL Total Abs Lymphocytes (1.2-3.4) K/uL Monocytes # (Manual) (0.11-0.59) K/uL Eosinophils # (Manual) (0-0.5) K/uL Basophils # (Manual) (0-0.2) K/uL RBC Morphology PT (9.0-12.0) Seconds INR (0.9-1.1) ABG pH ABG pCO2 ABG pO2 ABG HCO3 ABG O2 Saturation ABG Base Excess Abhilash Test VBG pH (7.36-7.41) VBG pCO2 (38-50) mmHg VBG pO2 mmHg VBG HCO3 mmol/L VBG O2 Saturation % VBG Base Excess mEq/L Barometric Pressure mm/Hg Oxygen Given Sodium (136-145) mmol/L Potassium (3.5-5.1) mmol/L Chloride (98-107) mmol/L Carbon Dioxide (21-32) mmol/L Anion Gap (3-11) BUN (7-18) mg/dl Creatinine (0.6-1.4) mg/dl Est Cr Clr Drug Dosing ml/min Est GFR ( Amer) Est GFR (Non-Af Amer) BUN/Creatinine Ratio (10-20) Glucose (70-99) mg/dl POC Glucose (70-99) mg/dl Estimat Average Glucose Hemoglobin A1c Lactate (0.4-2.0) mmol/L Calcium (8.5-10.1) mg/dl Phosphorus (2.5-4.9) mg/dl Magnesium (1.8-2.4) mg/dl Total Bilirubin (0.2-1) mg/dl AST (15-37) U/L ALT (12-78) U/L Alkaline Phosphatase (45-117) U/L Troponin I (0-0.045) ng/ml Total Protein (6.4-8.2) gm/dl Albumin (3.4-5.0) gm/dl Globulin (2.5-4.0) gm/dl Albumin/Globulin Ratio (0.9-2) Lipase (73-393) U/L Beta-Hydroxybutyric Acd (0.2-2.81) mg/dl Urine Color Urine Appearance (Clear) Urine pH (4.5-7.5) Ur Specific [place] (1.000-1.030) Urine Protein (Negative) Urine Glucose (UA) (Negative) Urine Ketones (Negative) Urine Blood (Negative) Urine Nitrite (Negative) Urine Bilirubin (Negative) Urine Urobilinogen (Negative) Ur Leukocyte Esterase (Negative) Stl C. diff Tox B Gene (Neg) COVID-19 Eval Order SARS-CoV-2, RNA, NAAT (NEGATIVE) Medications Administered Current Inpatient Medications Acetaminophen (Acetaminophen 325 Mg Tab) 650 mg PO Q4H PRN PRN Reason: Pain or Fever Stop: 02/07/21 23:14 Albuterol (Albuterol Hfa 8 Gm Inhaler) 2 puffs INH QID PRN PRN Reason: Shortness Of Breath Or Wheezing Stop: 02/07/21 23:14 Aspirin (Aspirin 81 Mg Ectab) 81 mg PO HS [facility] Stop: 02/08/21 20:59 Atorvastatin Calcium (Atorvastatin 40 Mg Tab) 80 mg PO HS [facility] Stop: 02/08/21 20:59 Carvedilol (Carvedilol 12.5 Mg Tab) 12.5 mg PO BID [facility] Stop: 02/08/21 08:59 Last Admin: 01/09/21 08:44 Dose: 12.5 mg Documented by: Dextrose (Dextrose 50% 50 Ml Syringe) 25 - 50 ml IV UD PRN; Protocol PRN Reason: Hypoglycemia Protocol Stop: 02/07/21 23:44 Enoxaparin Sodium (Enoxaparin Inj 40 Mg/0.4 Ml Syr) 40 mg SQ Q12H [facility] Stop: 02/08/21 08:59 Last Admin: 01/09/21 08:40 Dose: 40 mg Documented by: Escitalopram Oxalate (Escitalopram Oxalate 20 Mg Tab) 20 mg PO QAM [facility] Stop: 02/08/21 08:59 Last Admin: 01/09/21 08:44 Dose: 20 mg Documented by: Glucagon (Glucagon For Inj 1 Mg Vial) 1 mg SQ UD PRN; Protocol PRN Reason: Hypoglycemia Protocol Stop: 02/07/21 23:44 Glucose (Glucose 40% Gel 15 Gm Tube) 15 - 30 gm PO UD PRN; Protocol PRN Reason: Hypoglycemia Protocol Stop: 02/07/21 23:44 Glucose (Glucose 10 Tabs/Tube) 4 - 8 tabs PO UD PRN; Protocol PRN Reason: Hypoglycemia Protocol Stop: 02/07/21 23:44 Sodium Chloride (Nss 1000ml) 1,000 mls @ 125 mls/hr IV .Q8H [facility] Stop: 02/07/21 23:14 Last Admin: 01/09/21 08:38 Dose: 125 mls/hr Documented by: Acetaminophen (Ofirmev) 1,000 mg in 100 mls @ 400 mls/hr IV Q8H PRN PRN Reason: Pain Stop: 01/12/21 10:57 Promethazine HCl 6.25 mg/ (Sodium Chloride) 50.25 mls @ 201 mls/hr IV Q6H PRN PRN Reason: Nausea And Vomiting Stop: 02/08/21 10:59 Potassium Chloride (K Vinod / Wtr) 10 meq in 100 mls @ 100 mls/hr IV Q1H [facility] Stop: 01/09/21 13:59 Insulin Aspart (Insulin Aspart 100 Units/Ml 3 Ml Pen) 0 units SC ACHS [facility] Stop: 02/08/21 07:29 Last Admin: 01/09/21 12:12 Dose: 6 units Documented by: Insulin Glargine (Insulin Glargine Solostar 100 Units/Ml 3 Ml Pen) 0 units SC BID [facility]; Protocol Stop: 02/08/21 08:59 Last Admin: 01/09/21 09:02 Dose: 15 units Documented by: Miscellaneous (Dovonox~Order Awaiting Action) 1 ea N/A QS [facility] Stop: 02/08/21 00:00 Last Admin: 01/09/21 08:53 Dose: Not Given Documented by: Miscellaneous (Protopic~Order Awaiting Action) 1 ea N/A QS [facility] Stop: 02/08/21 00:00 Last Admin: 01/09/21 10:21 Dose: Not Given Documented by: Miscellaneous (Carbohydrates For Hypoglycemia ) 15 - 30 gm PO UD PRN PRN Reason: Hypoglycemia Treatment Stop: 02/07/21 23:44 Miscellaneous Information (Pharmacy Glycemic Mgmt Consult) 1 ea N/A UD PRN PRN Reason: Consult Stop: 02/07/21 23:23 Morphine Sulfate (Morphine Sulfate 4 Mg/Ml 1 Ml Carp\Vial) 3 mg IV Q3H PRN PRN Reason: Pain Stop: 01/22/21 23:14 Nitroglycerin (Nitroglycerin Sl 0.4 Mg/Tab Tab) 0.4 mg SL UD PRN PRN Reason: Chest Pain Stop: 02/07/21 23:14 Ondansetron HCl (Ondansetron Inj 2 Mg/Ml 2 Ml Vial) 4 mg IV Q6H PRN PRN Reason: Nausea Stop: 02/07/21 23:14 Topiramate (Topiramate 25 Mg Tab) 25 mg PO BID [facility] Stop: 02/08/21 08:59 Last Admin: 01/09/21 08:41 Dose: 25 mg Documented by: Topiramate (Topiramate 50 Mg Tab) 50 mg PO BID [facility] Stop: 02/08/21 08:59 Last Admin: 01/09/21 08:43 Dose: 50 mg Documented by: (1) Diarrhea Diarrhea type: presumed infectious Qualified Code(s): R19.7 - Diarrhea, unspecified (2) Vomiting Nausea presence: unspecified Vomiting Intractability: unspecified Vomiting type: unspecified Qualified Code(s): R11.10 - Vomiting, unspecified
[2021-01-09] MEDS: POTASSIUM CHLORIDE / WTR 10 MEQ/100 ML PLCT IV SCH ×2 (13:09→14:20)
--- NOTE | 2021-01-09 13:13 | Electrocardiogram Report ---
Test Reason : Blood Pressure : / mmHG Vent. Rate : 094 BPM Atrial Rate : 094 BPM P-R Int : 134 ms QRS Dur : 106 ms QT Int : 376 ms P-R-T Axes : 032 023 151 degrees QTc Int : 470 ms Normal sinus rhythm Cannot rule out Inferior infarct , age undetermined Abnormal ECG When compared with ECG of 22-FEB-2020 22:28, No significant change was found Confirmed by Gilberto Pena ([id number]) on 01/09/2021 1:13:25 PM Referred By: REFERRED SELF Confirmed By:Alo Pena
--- NOTE | 2021-01-09 13:32 | Electrocardiogram Report ---
Test Reason : Blood Pressure : / mmHG Vent. Rate : 086 BPM Atrial Rate : 086 BPM P-R Int : 138 ms QRS Dur : 106 ms QT Int : 404 ms P-R-T Axes : 031 -11 162 degrees QTc Int : 483 ms Normal sinus rhythm Incomplete right bundle branch block Inferior infarct (cited on or before 22-FEB-2020) Abnormal ECG Confirmed by Gilberto Pena ([id number]) on 01/09/2021 1:31:54 PM Referred By: REFERRED SELF Confirmed By:Alo Pena
--- NOTE | 2021-01-09 14:14 | Pharmacy Report ---
Pharmacy Glycemic Short Note 2 - Date of Service January 09, 2021 - Glycemic Short BSG Results (Last 24 hours): 01/08/21 01/08/21 01/08/21 18:44 21:02 23:28 Glucose 384 H* POC Glucose 213 H 200 H 01/09/21 01/09/21 01/09/21 04:25 05:23 07:34 Glucose 173 H POC Glucose 166 H 131 H 01/09/21 01/09/21 01/09/21 10:08 10:45 11:21 Glucose 159 H POC Glucose 172 H 144 H OUTPATIENT ANTIDIABETIC REGIMEN: * Jardiance 25 mg daily * glipizide 5 mg BID * metformin 1 gm PO BID ASSESSMENT: * Mr Soria is a 45 y/o M with a PMH of T2DM on three oral medications who presents with N/V/D. Patient's admitting BSG was elevated at 384 mg/dL and he received 5 units of IV insulin. BSG's overnight were 213-200-166 mg/dL. Fasting today was 131 mg/dL on fingerstick. * Will start with weight-based Lantus dosing since patient is on three oral agents at home. Expect patient to require between weight-based stress of 1 and 2. Scale ongoing. * Novolog weight-based stress of 2 for now. PLAN FOR INPATIENT GLYCEMIC CONTROL: * Hold outpatient oral diabetes medications * Basal insulin * Lantus 10-20 units SQ BID (10 units for BSG less than 120 mg/dL; 15 units for BSG 120-160 mg/dL; 20 units for BSG greater than 160 mg/dL) * Bolus insulin * NovoLog per scale ACHS or Q6hrs while NPO * Goal Range: Low 110 mg/dL - High 140 mg/dL * Correction Factor: 20 mg/dL/unit * Nutritional / Prandial insulin per carb ratio of 1 unit per 7 grams CHO consumed PLAN FOR DISCHARGE: * TBD once HbA1C results
[2021-01-09] MEDS: WARFARIN SOD 5 MG TAB PO SCH (16:33)
[2021-01-09] MEDS: DICYCLOMINE HCL 10 MG CAP PO PRN (16:33)
[2021-01-09] MEDS: ASPIRIN 81 MG ECTAB PO SCH (21:02)
[2021-01-10] MEDS: SODIUM CHLORIDE 0.9% 1000ML 1,000 ML IV SCH ×3 (02:10→18:26)
[2021-01-10 06:00] LABS: Estimated Average Glucose 401 mg/dl; Hemoglobin A1C 15.6 % (4.5-5.6)
[2021-01-10] MEDS: DICYCLOMINE HCL 10 MG CAP PO PRN ×3 (06:17→18:27)
[2021-01-10 06:27] LABS: Hematocrit (blood only) 44.5 % (42-52); Hemoglobin 15.7 g/dL (14.0-18.0); Mean Corpuscular Hgb Conc 35.3 g/dL (32-36); Mean Corpuscular Volume 90.6 fL (80-100); Mean Platelet Volume 10.2 fL (7.4-10.4); Platelet Count 285 K/uL (130-400); RDW Coefficient of Variation 12.5 % (11.5-14.5); RDW Standard Deviation 41.4 fL (36.4-46.3); Red Blood Count 4.91 M/uL (4.7-6.1); White Blood Count 8.13 K/uL (4.8-10.8)
[2021-01-10 07:19] LABS: BUN Creatinine Ratio 23.2 (10-20); Est GFR (African American) 143.7; Phosphorus 2.5 mg/dl (2.5-4.9); Potassium 3.1 mmol/L (3.5-5.1)
[2021-01-10] MEDS ORDERED: POTASSIUM PHOS 3 MMOL/1 ML INFUSION IV STA (07:41)
--- NOTE | 2021-01-10 07:45 | Hospitalist Progress Note ---
Date of Service January 10, 2021 Assessment & Plan (1) Colitis: (2) Diarrhea: (3) Vomiting: (4) Acute hyperglycemia: This is a 45-year-old male who presents with nausea, vomiting, diarrhea and hyperglycemia. Colitis found on abd. CT. 1. Nausea, vomiting, diarrhea, nonspecific colitis on the CAT scan, possible infectious gastroenteritis. (Patient's colleagues reported similar symptoms). SARS-CoV-2 negative. Clostridium difficile - negative Stool cultures - pending. Cont. IV fluids, clear liquid diet as tolerated GI consulted -appreciate their input 2. Hyperglycemia, anion gap is 15. No acidosis. Received IV Insulin in the ER. We will hold his home medication. Start Lantus and insulin sliding scale while inpt Glycemic pharmacy consult. Monitor the blood sugars. Current Hgb A1c above 15% certified adaptive physical educator consulted 3. Acute kidney injury. Creatinine 1.4, baseline creatinine 0.8. Holding his diuretics and lisinopril. Getting fluids. Creatinine now normalized resolved 4. Hyponatremia, mostly pseudohyponatremia from elevated sugars. Now sodium wnl as blood glucose level improved Resolved 5. Obstructive sleep apnea. CPAP at bedtime. 6. Chronic diastolic and systolic congestive heart failure, ejection fraction 35-40% EF on echo done in June 2019. EF 50% on echo in 07/2020 Holding his Lasix, getting fluids. Monitor for any volume overload. Echo repeated while inpatient, left ventricle appears to be normal size with normal systolic function and estimated LVEF around 50 to 55%. RV systolic function is normal. Left atrial size is normal. Right atrial size is normal. The prosthetic aortic valve is not well visualized. The gradients for the prosthetic valve are elevated on the study but may be related to technique. If clinically indicated the study can be repeated in the future. 7. Hypertension. Continue his Coreg. We will hold Lasix and lisinopril and spironolactone. Monitor the blood pressure. 8. Vitiligo. Continue his home topical creams. (His home topical creams are not available in our pharmacy, contacted patient's enoc, who is able to bring them in however she reports that patient has not been using them for some time). 9. Hyperlipidemia. Continue statin. 10. History of CAD. Continue his aspirin, statin and beta-betty. 11. Depression. Continue his Lexapro. 12. History of migraine, on Topamax. 13. s/p AVR bioprosthetic valve. Question of clot on prosthetic valve supposed to be on Coumadin. Stopped taking Coumadin. Will consult cardiology for further recommendations as no clot seen on echo from 07/2020. Since this patient was lost to follow-up, check echo during this admission, and will discuss with cardiology. INR 1.0 on admission. Discussed with patient's fianc, she reports that patient's been taking 5 mg of warfarin daily. Warfarin 5 mg daily started while inpatient. 14. DVT prophylaxis, SCDs, Lovenox, also now started warfarin 15. Disposition: Admit to med tele. Expect discharge home and follow with family doctor. Admission and Anticipated Discharge Date Admission Date: January 08, 2021 Subjective Pt seen in follow up of dehydration, diarrhea/ colitis, hyperglycemia Feeling better today, no BM yesterday No fevers or chills Continues to have some abdominal discomfort Hgb A1c above 15% Review of Systems Review of Systems: All systems reviewed & are unremarkable except as noted in HPI & below Constitutional: no fever and no chills Respiratory: no cough and no dyspnea Cardiovascular: no chest pain and no palpitations Gastrointestinal: no abdominal pain, no nausea and no vomiting Physical Exam Physical Exam: GENERAL: Obese male sitting up in bed, uncomfortable due to abdominal pain, nausea HEENT: NC/AT, Pupils equal, round, and reactive to light. Oral mucosa is dry. NECK: No JVD, no neck masses seen. CARDIOVASCULAR: S1, S2, regular rate and rhythm, no murmur, no gallop. RESPIRATORY SYSTEM: Normal AP diameter. No accessory muscle use. No wheezing, no crackles. ABDOMEN: Soft, bowel sounds present. Mild abdominal diffuse discomfort, mostly in lower quadrants. No guarding, no rigidity. No distention. NEURO: Alert and oriented answering questions appropriately, moves extremities spontaneously EXTREMITIES: No edema, no erythema. SKIN: White/ depigmented spot seen on the R face c/w vitiligo. Results & Data Results & Data ([facility]) Vital Signs (Past 12 Hours) Vital Signs Temp Pulse Pulse Resp BP Pulse Ox 01/10/21 07:20 72 01/10/21 07:15 37 C 77 18 129/78 97 01/10/21 03:50 36.1 C L 71 20 116/71 93 01/10/21 02:40 79 01/10/21 02:10 83 16 96 01/09/21 22:37 73 16 97 01/09/21 22:19 36.5 C 78 18 104/61 95 Laboratory Results 01/10/21 01/10/21 01/10/21 Range/Units 07:38 07:27 05:59 WBC (4.8-10.8) K/uL RBC (4.7-6.1) M/uL Hgb (14.0-18.0) g/dL Hct (42-52) % MCV (80-100) fL MCH (25-34) pg MCHC (32-36) g/dL RDW Std Deviation (36.4-46.3) fL RDW Coeff of Tyron (11.5-14.5) % Plt Count (130-400) K/uL MPV (7.4-10.4) fL ABG pH ABG pCO2 ABG pO2 ABG HCO3 ABG O2 Saturation ABG Base Excess Abhilash Test Barometric Pressure Oxygen Given Sodium 138 (136-145) mmol/L Potassium 3.1 L D (3.5-5.1) mmol/L Chloride 104 (98-107) mmol/L Carbon Dioxide 24 (21-32) mmol/L Anion Gap 10.0 (3-11) BUN 13 (7-18) mg/dl Creatinine 0.58 L (0.6-1.4) mg/dl Est Cr Clr Drug Dosing 202.0 ml/min Est GFR ( Amer) 143.7 Est GFR (Non-Af Amer) 124.0 BUN/Creatinine Ratio 23.2 H (10-20) Glucose 81 (70-99) mg/dl POC Glucose 81 (70-99) mg/dl Estimat Average Glucose mg/dl Hemoglobin A1c (4.5-5.6) % Lactate (0.4-2.0) mmol/L Calcium 8.0 L (8.5-10.1) mg/dl Phosphorus 2.5 (2.5-4.9) mg/dl Magnesium 2.0 (1.8-2.4) mg/dl Total Bilirubin (0.2-1) mg/dl AST (15-37) U/L ALT (12-78) U/L Alkaline Phosphatase (45-117) U/L Troponin I (0-0.045) ng/ml Total Protein (6.4-8.2) gm/dl Albumin (3.4-5.0) gm/dl Globulin (2.5-4.0) gm/dl Albumin/Globulin Ratio (0.9-2) Stl C. diff Tox B Gene (Neg) CMV Specimen Source Pending CMV Qnt PCR IU/mL Pending CMV Qnt PCR log IU/mL Pending 01/10/21 01/09/21 01/09/21 Range/Units 05:59 20:28 16:46 WBC 8.13 (4.8-10.8) K/uL RBC 4.91 (4.7-6.1) M/uL Hgb 15.7 (14.0-18.0) g/dL Hct 44.5 (42-52) % MCV 90.6 (80-100) fL MCH 32.0 (25-34) pg MCHC 35.3 (32-36) g/dL RDW Std Deviation 41.4 (36.4-46.3) fL RDW Coeff of Tyron 12.5 (11.5-14.5) % Plt Count 285 (130-400) K/uL MPV 10.2 (7.4-10.4) fL ABG pH ABG pCO2 ABG pO2 ABG HCO3 ABG O2 Saturation ABG Base Excess Abhilash Test Barometric Pressure Oxygen Given Sodium (136-145) mmol/L Potassium (3.5-5.1) mmol/L Chloride (98-107) mmol/L Carbon Dioxide (21-32) mmol/L Anion Gap (3-11) BUN (7-18) mg/dl Creatinine (0.6-1.4) mg/dl Est Cr Clr Drug Dosing ml/min Est GFR ( Amer) Est GFR (Non-Af Amer) BUN/Creatinine Ratio (10-20) Glucose (70-99) mg/dl POC Glucose 83 110 H (70-99) mg/dl Estimat Average Glucose mg/dl Hemoglobin A1c (4.5-5.6) % Lactate (0.4-2.0) mmol/L Calcium (8.5-10.1) mg/dl Phosphorus (2.5-4.9) mg/dl Magnesium (1.8-2.4) mg/dl Total Bilirubin (0.2-1) mg/dl AST (15-37) U/L ALT (12-78) U/L Alkaline Phosphatase (45-117) U/L Troponin I (0-0.045) ng/ml Total Protein (6.4-8.2) gm/dl Albumin (3.4-5.0) gm/dl Globulin (2.5-4.0) gm/dl Albumin/Globulin Ratio (0.9-2) Stl C. diff Tox B Gene (Neg) CMV Specimen Source CMV Qnt PCR IU/mL CMV Qnt PCR log IU/mL 01/09/21 01/09/21 01/09/21 Range/Units 12:36 11:21 10:45 WBC (4.8-10.8) K/uL RBC (4.7-6.1) M/uL Hgb (14.0-18.0) g/dL Hct (42-52) % MCV (80-100) fL MCH (25-34) pg MCHC (32-36) g/dL RDW Std Deviation (36.4-46.3) fL RDW Coeff of Tyron (11.5-14.5) % Plt Count (130-400) K/uL MPV (7.4-10.4) fL ABG pH 7.42 Cancelled ABG pCO2 38 Cancelled ABG pO2 77 L Cancelled ABG HCO3 24 Cancelled ABG O2 Saturation 96.0 H Cancelled ABG Base Excess -0.3 Cancelled Abhilash Test Pos Cancelled Barometric Pressure 744.5 Cancelled Oxygen Given ROOM AIR Cancelled Sodium (136-145) mmol/L Potassium (3.5-5.1) mmol/L Chloride (98-107) mmol/L Carbon Dioxide (21-32) mmol/L Anion Gap (3-11) BUN (7-18) mg/dl Creatinine (0.6-1.4) mg/dl Est Cr Clr Drug Dosing ml/min Est GFR ( Amer) Est GFR (Non-Af Amer) BUN/Creatinine Ratio (10-20) Glucose (70-99) mg/dl POC Glucose 144 H (70-99) mg/dl Estimat Average Glucose mg/dl Hemoglobin A1c (4.5-5.6) % Lactate (0.4-2.0) mmol/L Calcium (8.5-10.1) mg/dl Phosphorus (2.5-4.9) mg/dl Magnesium (1.8-2.4) mg/dl Total Bilirubin (0.2-1) mg/dl AST (15-37) U/L ALT (12-78) U/L Alkaline Phosphatase (45-117) U/L Troponin I (0-0.045) ng/ml Total Protein (6.4-8.2) gm/dl Albumin (3.4-5.0) gm/dl Globulin (2.5-4.0) gm/dl Albumin/Globulin Ratio (0.9-2) Stl C. diff Tox B Gene (Neg) CMV Specimen Source CMV Qnt PCR IU/mL CMV Qnt PCR log IU/mL 01/09/21 01/09/21 01/09/21 Range/Units 10:45 10:45 10:44 WBC 10.27 (4.8-10.8) K/uL RBC 5.23 (4.7-6.1) M/uL Hgb 17.0 (14.0-18.0) g/dL Hct 47.6 (42-52) % MCV 91.0 (80-100) fL MCH 32.5 (25-34) pg MCHC 35.7 (32-36) g/dL RDW Std Deviation 41.9 (36.4-46.3) fL RDW Coeff of Tyron 12.7 (11.5-14.5) % Plt Count 305 (130-400) K/uL MPV 10.3 (7.4-10.4) fL ABG pH ABG pCO2 ABG pO2 ABG HCO3 ABG O2 Saturation ABG Base Excess Abhilash Test Barometric Pressure Oxygen Given Sodium 136 (136-145) mmol/L Potassium 3.7 (3.5-5.1) mmol/L Chloride 99 (98-107) mmol/L Carbon Dioxide 24 (21-32) mmol/L Anion Gap 13.0 H (3-11) BUN 22 H (7-18) mg/dl Creatinine 0.87 (0.6-1.4) mg/dl Est Cr Clr Drug Dosing 134.1 ml/min Est GFR ( Amer) 121.7 Est GFR (Non-Af Amer) 105.0 BUN/Creatinine Ratio 25.4 H (10-20) Glucose 159 H (70-99) mg/dl POC Glucose (70-99) mg/dl Estimat Average Glucose mg/dl Hemoglobin A1c (4.5-5.6) % Lactate 1.0 (0.4-2.0) mmol/L Calcium 8.4 L (8.5-10.1) mg/dl Phosphorus 3.2 (2.5-4.9) mg/dl Magnesium 2.1 (1.8-2.4) mg/dl Total Bilirubin 0.9 (0.2-1) mg/dl AST 10 L (15-37) U/L ALT 18 (12-78) U/L Alkaline Phosphatase 151 H (45-117) U/L Troponin I 0.018 (0-0.045) ng/ml Total Protein 7.0 (6.4-8.2) gm/dl Albumin 3.3 L (3.4-5.0) gm/dl Globulin 3.7 (2.5-4.0) gm/dl Albumin/Globulin Ratio 0.9 (0.9-2) Stl C. diff Tox B Gene (Neg) CMV Specimen Source CMV Qnt PCR IU/mL CMV Qnt PCR log IU/mL 01/09/21 01/09/21 01/09/21 Range/Units 10:08 09:55 05:23 WBC (4.8-10.8) K/uL RBC (4.7-6.1) M/uL Hgb (14.0-18.0) g/dL Hct (42-52) % MCV (80-100) fL MCH (25-34) pg MCHC (32-36) g/dL RDW Std Deviation (36.4-46.3) fL RDW Coeff of Tyron (11.5-14.5) % Plt Count (130-400) K/uL MPV (7.4-10.4) fL ABG pH ABG pCO2 ABG pO2 ABG HCO3 ABG O2 Saturation ABG Base Excess Abhilash Test Barometric Pressure Oxygen Given Sodium (136-145) mmol/L Potassium (3.5-5.1) mmol/L Chloride (98-107) mmol/L Carbon Dioxide (21-32) mmol/L Anion Gap (3-11) BUN (7-18) mg/dl Creatinine (0.6-1.4) mg/dl Est Cr Clr Drug Dosing ml/min Est GFR ( Amer) Est GFR (Non-Af Amer) BUN/Creatinine Ratio (10-20) Glucose (70-99) mg/dl POC Glucose 172 H (70-99) mg/dl Estimat Average Glucose 401 mg/dl Hemoglobin A1c 15.6 H (4.5-5.6) % Lactate (0.4-2.0) mmol/L Calcium (8.5-10.1) mg/dl Phosphorus (2.5-4.9) mg/dl Magnesium (1.8-2.4) mg/dl Total Bilirubin (0.2-1) mg/dl AST (15-37) U/L ALT (12-78) U/L Alkaline Phosphatase (45-117) U/L Troponin I (0-0.045) ng/ml Total Protein (6.4-8.2) gm/dl Albumin (3.4-5.0) gm/dl Globulin (2.5-4.0) gm/dl Albumin/Globulin Ratio (0.9-2) Stl C. diff Tox B Gene Negative Cdiff Gene (Neg) CMV Specimen Source CMV Qnt PCR IU/mL CMV Qnt PCR log IU/mL Medications Administered Current Inpatient Medications Acetaminophen (Acetaminophen 325 Mg Tab) 650 mg PO Q4H PRN PRN Reason: Pain or Fever Stop: 02/07/21 23:14 Albuterol (Albuterol Hfa 8 Gm Inhaler) 2 puffs INH QID PRN PRN Reason: Shortness Of Breath Or Wheezing Stop: 02/07/21 23:14 Aspirin (Aspirin 81 Mg Ectab) 81 mg PO HS [facility] Stop: 02/08/21 20:59 Last Admin: 01/09/21 21:02 Dose: 81 mg Documented by: Atorvastatin Calcium (Atorvastatin 40 Mg Tab) 80 mg PO [facility] Stop: 02/08/21 20:59 Last Admin: 01/09/21 21:03 Dose: 80 mg Documented by: Carvedilol (Carvedilol 12.5 Mg Tab) 12.5 mg PO BID [facility] Stop: 02/08/21 08:59 Last Admin: 01/09/21 21:02 Dose: 12.5 mg Documented by: Dextrose (Dextrose 50% 50 Ml Syringe) 25 - 50 ml IV UD PRN; Protocol PRN Reason: Hypoglycemia Protocol Stop: 02/07/21 23:44 Dicyclomine HCl (Dicyclomine Hcl 10 Mg Cap) 10 mg PO TID PRN PRN Reason: abdominal cramping Stop: 02/08/21 20:59 Last Admin: 01/10/21 06:17 Dose: 10 mg Documented by: Enoxaparin Sodium (Enoxaparin Inj 40 Mg/0.4 Ml Syr) 40 mg SQ Q12H [facility] Stop: 02/08/21 08:59 Last Admin: 01/09/21 22:21 Dose: 40 mg Documented by: Escitalopram Oxalate (Escitalopram Oxalate 20 Mg Tab) 20 mg PO QAM [facility] Stop: 02/08/21 08:59 Last Admin: 01/09/21 08:44 Dose: 20 mg Documented by: Glucagon (Glucagon For Inj 1 Mg Vial) 1 mg SQ UD PRN; Protocol PRN Reason: Hypoglycemia Protocol Stop: 02/07/21 23:44 Glucose (Glucose 40% Gel 15 Gm Tube) 15 - 30 gm PO UD PRN; Protocol PRN Reason: Hypoglycemia Protocol Stop: 02/07/21 23:44 Glucose (Glucose 10 Tabs/Tube) 4 - 8 tabs PO UD PRN; Protocol PRN Reason: Hypoglycemia Protocol Stop: 02/07/21 23:44 Sodium Chloride (Nss 1000ml) 1,000 mls @ 125 mls/hr IV .Q8H [facility] Stop: 02/07/21 23:14 Last Admin: 01/10/21 02:10 Dose: 125 mls/hr Documented by: Acetaminophen (Ofirmev) 1,000 mg in 100 mls @ 400 mls/hr IV Q8H PRN PRN Reason: Pain Stop: 01/12/21 10:57 Promethazine HCl 6.25 mg/ (Sodium Chloride) 50.25 mls @ 201 mls/hr IV Q6H PRN PRN Reason: Nausea And Vomiting Stop: 02/08/21 10:59 Potassium Chloride (K Vinod / Wtr) 10 meq in 100 mls @ 100 mls/hr IV Q1H [facility] Stop: 01/10/21 09:59 Potassium Phosphate 6 mmol/ (Sodium Chloride) 252 mls @ 88 mls/hr IV ONE ONE Stop: 01/10/21 10:51 Insulin Aspart (Insulin Aspart 100 Units/Ml 3 Ml Pen) 0 units SC ACHS [facility] Stop: 02/08/21 07:29 Last Admin: 01/09/21 21:05 Dose: Not Given Documented by: Insulin Glargine (Insulin Glargine Solostar 100 Units/Ml 3 Ml Pen) 0 units SC BID [facility]; Protocol Stop: 02/08/21 08:59 Last Admin: 01/09/21 22:21 Dose: 300 units Documented by: Miscellaneous (Dovonox~Order Awaiting Action) 1 ea N/A QS [facility] Stop: 02/08/21 00:00 Last Admin: 01/09/21 08:53 Dose: Not Given Documented by: Miscellaneous (Protopic~Order Awaiting Action) 1 ea N/A QS [facility] Stop: 02/08/21 00:00 Last Admin: 01/09/21 10:21 Dose: Not Given Documented by: Miscellaneous (Carbohydrates For Hypoglycemia ) 15 - 30 gm PO UD PRN PRN Reason: Hypoglycemia Treatment Stop: 02/07/21 23:44 Miscellaneous Information (Pharmacy Glycemic Mgmt Consult) 1 ea N/A UD PRN PRN Reason: Consult Stop: 02/07/21 23:23 Morphine Sulfate (Morphine Sulfate 4 Mg/Ml 1 Ml Carp\Vial) 3 mg IV Q3H PRN PRN Reason: Pain Stop: 01/22/21 23:14 Nitroglycerin (Nitroglycerin Sl 0.4 Mg/Tab Tab) 0.4 mg SL UD PRN PRN Reason: Chest Pain Stop: 02/07/21 23:14 Ondansetron HCl (Ondansetron Inj 2 Mg/Ml 2 Ml Vial) 4 mg IV Q6H PRN PRN Reason: Nausea Stop: 02/07/21 23:14 Potassium Chloride (Potassium Chloride Crtab 20 Meq Tabcr) 40 meq PO NOW ONE Stop: 01/10/21 08:01 Topiramate (Topiramate 25 Mg Tab) 25 mg PO BID [facility] Stop: 02/08/21 08:59 Last Admin: 01/09/21 21:04 Dose: 25 mg Documented by: Topiramate (Topiramate 50 Mg Tab) 50 mg PO BID [facility] Stop: 02/08/21 08:59 Last Admin: 01/09/21 21:03 Dose: 50 mg Documented by: Warfarin Sodium (Warfarin Sod 5 Mg Tab) 5 mg PO DAILY@1600 AMANDA Stop: 02/08/21 15:59 Last Admin: 01/09/21 16:33 Dose: 5 mg Documented by: (1) Diarrhea Diarrhea type: presumed infectious Qualified Code(s): R19.7 - Diarrhea, unspecified (2) Vomiting Nausea presence: unspecified Vomiting Intractability: unspecified Vomiting type: unspecified Qualified Code(s): R11.10 - Vomiting, unspecified
[2021-01-10] MEDS ORDERED: POTASSIUM CHLORIDE CRTAB 20 MEQ TABCR PO ONE (08:00)
[2021-01-10] MEDS ORDERED: POTASSIUM PHOSPHATE 6 MMOL in SODIUM CHLORIDE 0.9% 250 ML IV ONE (08:00)
[2021-01-10] MEDS: carvediloL 12.5 MG TAB PO SCH ×2 (08:20→20:12)
[2021-01-10] MEDS: TOPIRAMATE 25 MG TAB PO SCH ×2 (08:21→20:14)
[2021-01-10] MEDS: ESCITALOPRAM OXALATE 20 MG TAB PO SCH (08:21)
[2021-01-10] MEDS: TOPIRAMATE 50 MG TAB PO SCH ×2 (08:21→20:13)
[2021-01-10] MEDS: ENOXAPARIN INJ 40 MG/0.4 ML SYR SQ SCH ×2 (08:21→20:14)
[2021-01-10] MEDS: INSULIN ASPART 100 UNITS/ML 3 ML PEN SC SCH ×4 (08:25→20:27)
[2021-01-10] MEDS: INSULIN GLARGINE SOLOSTAR 100 UNITS/ML 3 ML PEN SC SCH ×2 (08:26→20:26)
[2021-01-10] MEDS: POTASSIUM CHLORIDE / WTR 10 MEQ/100 ML PLCT IV SCH ×2 (09:49→11:24)
--- NOTE | 2021-01-10 10:29 | Gastroenterology Progress Note ---
Date of Service January 10, 2021 Assessment & Plan (1) Nausea & vomiting: (2) Diarrhea: Pt is a 45 y/o male followed for n/v diarrhea symptoms. Cdiff negative, stool cx pending. He reports 2 coworkers and now girlfriend are having similar symptoms. Suspect infectious gastroenteritis. - IVF support - Replete electrolytes - F/U stool cx - Bentyl prn abd cramping - Imodium prn diarrhea Admission and Anticipated Discharge Date Admission Date: January 08, 2021 Supervising Physician Co-Signing Physician Notes I saw and evaluated the patient. The patient notes that his symptoms are slightly improved today. Would recommend a trial of Questran 1 time daily and await the stool culture results. based on the history we wonder about a viral gastroenteritis. I would recommend that the patient have an outpatient colonoscopy in 4 to 6 weeks. Subjective Pt reports still having diarrhea + nocturnal awakening w LUQ abd discomfort, less nausea, no vomiting. Non bloody stools, mostly liquid black in color. Review of Systems Review of Systems: All systems reviewed & are unremarkable except as noted in HPI & below Physical Exam Constitutional: WD/WN, vitals as above well groomed, cooperative and comfortable Eyes: PERRL, conjunctivae normal, anicteric sclerae ENMT: external ear and nose normal, oropharynx normal Respiratory: normal respiratory effort, lungs clear to auscultation Cardiovascular: RRR, no murmur, no edema Gastrointestinal (Abdomen): Percussion/Palpation: + abdomen tender (RLQ, mid upper) Skin: no rashes, warm and dry no jaundice Psychiatric: A+Ox3, euthymic affect Lymphatic: no lymphedema Results & Data ([facility]) Vital Signs (Past 12 Hours) Vital Signs Temp Pulse Pulse Resp BP Pulse Ox 01/10/21 07:20 72 01/10/21 07:15 37 C 77 18 129/78 97 01/10/21 03:50 36.1 C L 71 20 116/71 93 01/10/21 02:40 79 01/10/21 02:10 83 16 96 01/09/21 22:37 73 16 97 (1) Diarrhea Diarrhea type: presumed infectious Qualified Code(s): R19.7 - Diarrhea, unspecified
--- NOTE | 2021-01-10 10:42 | Cardiology Progress Note ---
Date of Service January 10, 2021 Assessment & Plan (1) Cardiomyopathy: (2) Diarrhea: (3) Acute hyperglycemia: (4) Vomiting: (5) Abdominal pain: (6) Hx of aortic valve replacement: The patient is clinically stable. I reviewed his echocardiogram. The study was technically limited but adequate and revealed his LV function to be unchanged. It did suggest elevated gradients across his prosthetic valve but I feel this was more due to technique and does not fit the clinical picture. In the future as an outpatient we can redo this study. Admission and Anticipated Discharge Date Admission Date: January 08, 2021 Subjective Patient states he feels better today. He still has some lower abdominal discomfort and diarrhea but was able to eat breakfast this morning. Review of Systems Review of Systems: All systems reviewed & are unremarkable except as noted in Subjective Physical Exam Physical Exam: General: no acute distress and stated age Head: normocephalic, no masses, lesions, tenderness or abnormalities Eyes: conjunctiva are pink and non-injected, sclera clear Neck: supple, no adenopathy, no bruits, normal jugular venous pulse, no hepatojugular reflux Chest: normal shape and normal respiratory effort Lungs: clear to auscultation and percussion Cardiac Exam: - regular rate & rhythm, no murmurs gallops or rubs - normal S1, normal S2 Pulses: 2(+) throughout Abdomen: abdomen soft, non-tender, no abnormal masses and no hepatosplenomegaly Musculoskeletal: no gait disturbance, no joint inflammation, no deforming arthritis Extremities: no edema and no cyanosis Neuro: grossly normal exam Results & Data ([facility]) Vital Signs (Past 12 Hours) Vital Signs Temp Pulse Pulse Resp BP Pulse Ox 01/10/21 07:20 72 01/10/21 07:15 37 C 77 18 129/78 97 01/10/21 03:50 36.1 C L 71 20 116/71 93 01/10/21 02:40 79 01/10/21 02:10 83 16 96 Laboratory Results Laboratory Results - last 24 hr 01/09/21 01/09/21 01/09/21 05:23 09:55 10:44 WBC RBC Hgb Hct MCV MCH MCHC RDW Std Deviation RDW Coeff of Tyron Plt Count MPV ABG pH ABG pCO2 ABG pO2 ABG HCO3 ABG O2 Saturation ABG Base Excess Abhilash Test Barometric Pressure Oxygen Given Sodium Potassium Chloride Carbon Dioxide Anion Gap BUN Creatinine Est Cr Clr Drug Dosing Est GFR ( Amer) Est GFR (Non-Af Amer) BUN/Creatinine Ratio Glucose POC Glucose Estimat Average Glucose 401 Hemoglobin A1c 15.6 H Lactate 1.0 Calcium Phosphorus Magnesium Total Bilirubin AST ALT Alkaline Phosphatase Troponin I Total Protein Albumin Globulin Albumin/Globulin Ratio Stl C. diff Tox B Gene Negative Cdiff Gene CMV Specimen Source CMV Qnt PCR IU/mL CMV Qnt PCR log IU/mL 01/09/21 01/09/21 01/09/21 10:45 10:45 10:45 WBC 10.27 RBC 5.23 Hgb 17.0 Hct 47.6 MCV 91.0 MCH 32.5 MCHC 35.7 RDW Std Deviation 41.9 RDW Coeff of Tyron 12.7 Plt Count 305 MPV 10.3 ABG pH Cancelled ABG pCO2 Cancelled ABG pO2 Cancelled ABG HCO3 Cancelled ABG O2 Saturation Cancelled ABG Base Excess Cancelled Abhilash Test Cancelled Barometric Pressure Cancelled Oxygen Given Cancelled Sodium 136 Potassium 3.7 Chloride 99 Carbon Dioxide 24 Anion Gap 13.0 H BUN 22 H Creatinine 0.87 Est Cr Clr Drug Dosing 134.1 Est GFR ( Amer) 121.7 Est GFR (Non-Af Amer) 105.0 BUN/Creatinine Ratio 25.4 H Glucose 159 H POC Glucose Estimat Average Glucose Hemoglobin A1c Lactate Calcium 8.4 L Phosphorus 3.2 Magnesium 2.1 Total Bilirubin 0.9 AST 10 L ALT 18 Alkaline Phosphatase 151 H Troponin I 0.018 Total Protein 7.0 Albumin 3.3 L Globulin 3.7 Albumin/Globulin Ratio 0.9 Stl C. diff Tox B Gene CMV Specimen Source CMV Qnt PCR IU/mL CMV Qnt PCR log IU/mL 01/09/21 01/09/21 01/09/21 11:21 12:36 16:46 WBC RBC Hgb Hct MCV MCH MCHC RDW Std Deviation RDW Coeff of Tyron Plt Count MPV ABG pH 7.42 ABG pCO2 38 ABG pO2 77 L ABG HCO3 24 ABG O2 Saturation 96.0 H ABG Base Excess -0.3 Abhilash Test Pos Barometric Pressure 744.5 Oxygen Given ROOM AIR Sodium Potassium Chloride Carbon Dioxide Anion Gap BUN Creatinine Est Cr Clr Drug Dosing Est GFR ( Amer) Est GFR (Non-Af Amer) BUN/Creatinine Ratio Glucose POC Glucose 144 H 110 H Estimat Average Glucose Hemoglobin A1c Lactate Calcium Phosphorus Magnesium Total Bilirubin AST ALT Alkaline Phosphatase Troponin I Total Protein Albumin Globulin Albumin/Globulin Ratio Stl C. diff Tox B Gene CMV Specimen Source CMV Qnt PCR IU/mL CMV Qnt PCR log IU/mL 01/09/21 01/10/21 01/10/21 20:28 05:59 05:59 WBC 8.13 RBC 4.91 Hgb 15.7 Hct 44.5 MCV 90.6 MCH 32.0 MCHC 35.3 RDW Std Deviation 41.4 RDW Coeff of Tyron 12.5 Plt Count 285 MPV 10.2 ABG pH ABG pCO2 ABG pO2 ABG HCO3 ABG O2 Saturation ABG Base Excess Abhilash Test Barometric Pressure Oxygen Given Sodium 138 Potassium 3.1 L D Chloride 104 Carbon Dioxide 24 Anion Gap 10.0 BUN 13 Creatinine 0.58 L Est Cr Clr Drug Dosing 202.0 Est GFR ( Amer) 143.7 Est GFR (Non-Af Amer) 124.0 BUN/Creatinine Ratio 23.2 H Glucose 81 POC Glucose 83 Estimat Average Glucose Hemoglobin A1c Lactate Calcium 8.0 L Phosphorus 2.5 Magnesium 2.0 Total Bilirubin AST ALT Alkaline Phosphatase Troponin I Total Protein Albumin Globulin Albumin/Globulin Ratio Stl C. diff Tox B Gene CMV Specimen Source CMV Qnt PCR IU/mL CMV Qnt PCR log IU/mL 01/10/21 01/10/21 07:27 07:38 WBC RBC Hgb Hct MCV MCH MCHC RDW Std Deviation RDW Coeff of Tyron Plt Count MPV ABG pH ABG pCO2 ABG pO2 ABG HCO3 ABG O2 Saturation ABG Base Excess Abhilash Test Barometric Pressure Oxygen Given Sodium Potassium Chloride Carbon Dioxide Anion Gap BUN Creatinine Est Cr Clr Drug Dosing Est GFR ( Amer) Est GFR (Non-Af Amer) BUN/Creatinine Ratio Glucose POC Glucose 81 Estimat Average Glucose Hemoglobin A1c Lactate Calcium Phosphorus Magnesium Total Bilirubin AST ALT Alkaline Phosphatase Troponin I Total Protein Albumin Globulin Albumin/Globulin Ratio Stl C. diff Tox B Gene CMV Specimen Source Pending CMV Qnt PCR IU/mL Pending CMV Qnt PCR log IU/mL Pending Medications Administered Current Inpatient Medications Acetaminophen (Acetaminophen 325 Mg Tab) 650 mg PO Q4H PRN PRN Reason: Pain or Fever Stop: 03/22/21 23:14 Albuterol (Albuterol Hfa 8 Gm Inhaler) 2 puffs INH QID PRN PRN Reason: Shortness Of Breath Or Wheezing Stop: 02/07/21 23:14 Aspirin (Aspirin 81 Mg Ectab) 81 mg PO HS AMANDA Stop: 02/08/21 20:59 Last Admin: 01/09/21 21:02 Dose: 81 mg Documented by: Atorvastatin Calcium (Atorvastatin 40 Mg Tab) 80 mg PO HS AMANDA Stop: 02/08/21 20:59 Last Admin: 01/09/21 21:03 Dose: 80 mg Documented by: Carvedilol (Carvedilol 12.5 Mg Tab) 12.5 mg PO BID AMANDA Stop: 02/08/21 08:59 Last Admin: 01/10/21 08:20 Dose: 12.5 mg Documented by: Dextrose (Dextrose 50% 50 Ml Syringe) 25 - 50 ml IV UD PRN; Protocol PRN Reason: Hypoglycemia Protocol Stop: 02/07/21 23:44 Dicyclomine HCl (Dicyclomine Hcl 10 Mg Cap) 10 mg PO TID PRN PRN Reason: abdominal cramping Stop: 02/08/21 20:59 Last Admin: 01/10/21 06:17 Dose: 10 mg Documented by: Enoxaparin Sodium (Enoxaparin Inj 40 Mg/0.4 Ml Syr) 40 mg SQ Q12H AMANDA Stop: 02/08/21 08:59 Last Admin: 01/10/21 08:21 Dose: 40 mg Documented by: Escitalopram Oxalate (Escitalopram Oxalate 20 Mg Tab) 20 mg PO QAM AMANDA Stop: 02/08/21 08:59 Last Admin: 01/10/21 08:21 Dose: 20 mg Documented by: Glucagon (Glucagon For Inj 1 Mg Vial) 1 mg SQ UD PRN; Protocol PRN Reason: Hypoglycemia Protocol Stop: 02/07/21 23:44 Glucose (Glucose 40% Gel 15 Gm Tube) 15 - 30 gm PO UD PRN; Protocol PRN Reason: Hypoglycemia Protocol Stop: 02/07/21 23:44 Glucose (Glucose 10 Tabs/Tube) 4 - 8 tabs PO UD PRN; Protocol PRN Reason: Hypoglycemia Protocol Stop: 02/07/21 23:44 Sodium Chloride (Nss 1000ml) 1,000 mls @ 125 mls/hr IV .Q8H AMANDA Stop: 02/07/21 23:14 Last Admin: 01/10/21 10:34 Dose: 125 mls/hr Documented by: Acetaminophen (Ofirmev) 1,000 mg in 100 mls @ 400 mls/hr IV Q8H PRN PRN Reason: Pain Stop: 01/12/21 10:57 Promethazine HCl 6.25 mg/ (Sodium Chloride) 50.25 mls @ 201 mls/hr IV Q6H PRN PRN Reason: Nausea And Vomiting Stop: 02/08/21 10:59 Potassium Phosphate 6 mmol/ (Sodium Chloride) 252 mls @ 88 mls/hr IV ONE ONE Stop: 01/10/21 10:51 Last Admin: 01/10/21 08:29 Dose: 88 mls/hr Documented by: Insulin Aspart (Insulin Aspart 100 Units/Ml 3 Ml Pen) 0 units SC ACHS AMANDA Stop: 02/08/21 07:29 Last Admin: 01/10/21 08:25 Dose: 4 units Documented by: Insulin Glargine (Insulin Glargine Solostar 100 Units/Ml 3 Ml Pen) 0 units SC BID [facility]; Protocol Stop: 02/08/21 08:59 Last Admin: 01/10/21 08:26 Dose: 8 units Documented by: Loperamide HCl (Loperamide Hcl 2 Mg Cap) 2 mg PO TID PRN PRN Reason: diarrhea Stop: 02/09/21 10:22 Miscellaneous (Dovonox~Order Awaiting Action) 1 ea N/A QS [facility] Stop: 02/08/21 00:00 Last Admin: 01/09/21 08:53 Dose: Not Given Documented by: Miscellaneous (Protopic~Order Awaiting Action) 1 ea N/A [facility] Stop: 02/08/21 00:00 Last Admin: 01/09/21 10:21 Dose: Not Given Documented by: Miscellaneous (Carbohydrates For Hypoglycemia ) 15 - 30 gm PO UD PRN PRN Reason: Hypoglycemia Treatment Stop: 02/07/21 23:44 Miscellaneous Information (Pharmacy Glycemic Mgmt Consult) 1 ea N/A UD PRN PRN Reason: Consult Stop: 02/07/21 23:23 Morphine Sulfate (Morphine Sulfate 4 Mg/Ml 1 Ml Carp\Vial) 3 mg IV Q3H PRN PRN Reason: Pain Stop: 01/22/21 23:14 Nitroglycerin (Nitroglycerin Sl 0.4 Mg/Tab Tab) 0.4 mg SL UD PRN PRN Reason: Chest Pain Stop: 02/07/21 23:14 Ondansetron HCl (Ondansetron Inj 2 Mg/Ml 2 Ml Vial) 4 mg IV Q6H PRN PRN Reason: Nausea Stop: 02/07/21 23:14 Topiramate (Topiramate 25 Mg Tab) 25 mg PO BID [facility] Stop: 02/08/21 08:59 Last Admin: 01/10/21 08:21 Dose: 25 mg Documented by: Topiramate (Topiramate 50 Mg Tab) 50 mg PO BID [facility] Stop: 02/08/21 08:59 Last Admin: 01/10/21 08:21 Dose: 50 mg Documented by: Warfarin Sodium (Warfarin Sod 5 Mg Tab) 5 mg PO DAILY@1600 [facility] Stop: 02/08/21 15:59 Last Admin: 01/09/21 16:33 Dose: 5 mg Documented by: (1) Diarrhea Diarrhea type: presumed infectious Qualified Code(s): R19.7 - Diarrhea, unspecified (2) Vomiting Nausea presence: unspecified Vomiting Intractability: unspecified Vomiting type: unspecified Qualified Code(s): R11.10 - Vomiting, unspecified (3) Abdominal pain Abdominal location: unspecified location Qualified Code(s): R10.9 - Unspecified abdominal pain
[2021-01-10] MEDS: CHOLESTYRAMINE LIGHT 4 GM PKT PO SCH (12:22)
[2021-01-10] MEDS: LOPERAMIDE HCL 2 MG CAP PO PRN ×2 (13:12→16:32)
--- NOTE | 2021-01-10 14:09 | Pharmacy Report ---
Pharmacy Glycemic Short Note 2 - Date of Service January 10, 2021 - Glycemic Short BSG Results (Last 24 hours): 01/09/21 01/09/21 01/10/21 16:46 20:28 05:59 Glucose 81 POC Glucose 110 H 83 01/10/21 01/10/21 07:27 11:33 Glucose POC Glucose 81 114 H OUTPATIENT ANTIDIABETIC REGIMEN: * Jardiance 25 mg daily * glipizide 5 mg BID * metformin 1 gm PO BID ASSESSMENT: 01/10: * Patient received total of 43 units of insulin yesterday, of which 25 units were basal insulin * Fasting BSG 81 mg/dL - plan to scale back with basal insulin today ~30% * BSGs yesterday trending downward, plan to loosen CF/CR today PLAN FOR INPATIENT GLYCEMIC CONTROL: * Hold outpatient oral diabetes medications * Basal insulin * Lantus 8-12 units bid based upon BSG value * Bolus insulin * NovoLog per scale ACHS or Q6hrs while NPO * Goal Range: Low 110 mg/dL - High 140 mg/dL * Correction Factor: 25 mg/dL/unit * Nutritional / Prandial insulin per carb ratio of 1 unit per 10 grams CHO consumed PLAN FOR DISCHARGE: * 15.6 % - A1c is greater than or equal to 10%, guidelines recommend triple therapy with metformin + basal insulin + prandial insulin * DM educator met with patient and he reports losing ~60 lbs in last 1-2 months thru dietary changes including eliminating sugar sweetened drinks and eating healthier. * Patient currently only on oral medications at home for diabetes management. Could consider addition of basal insulin on discharge. Will continue to follow to determine needs.
[2021-01-10] MEDS: WARFARIN SOD 5 MG TAB PO SCH (16:32)
[2021-01-10] MEDS: ATORVASTATIN 40 MG TAB PO SCH (20:00)
[2021-01-10] MEDS: ASPIRIN 81 MG ECTAB PO SCH (20:12)
[2021-01-10] MEDS ORDERED: CHOLESTYRAMINE LIGHT 4 GM PKT PO SCH (22:00)
[2021-01-11] MEDS: SODIUM CHLORIDE 0.9% 1000ML 1,000 ML IV SCH ×2 (02:28→10:56)
[2021-01-11 06:14] LABS: Hematocrit (blood only) 44.1 % (42-52); Hemoglobin 15.7 g/dL (14.0-18.0); Mean Corpuscular Hemoglobin 32.2 pg (25-34); Mean Corpuscular Hgb Conc 35.6 g/dL (32-36); Mean Corpuscular Volume 90.6 fL (80-100); Mean Platelet Volume 10.2 fL (7.4-10.4); Platelet Count 257 K/uL (130-400); RDW Coefficient of Variation 12.7 % (11.5-14.5); RDW Standard Deviation 42.2 fL (36.4-46.3); Red Blood Count 4.87 M/uL (4.7-6.1); White Blood Count 7.07 K/uL (4.8-10.8)
[2021-01-11 06:27] LABS: INR 1.2 (0.9-1.1); Prothrombin Time 11.9 Seconds (9.0-12.0)
[2021-01-11 06:50] LABS: BUN Creatinine Ratio 16.2 (10-20); Creatinine Clr Calc Pharmacy 174.9 ml/min; Est GFR (African American) 135.4; Est GFR (Non-African American) 116.9; Magnesium 1.8 mg/dl (1.8-2.4); Phosphorus 2.2 mg/dl (2.5-4.9); Potassium 3.6 mmol/L (3.5-5.1)
[2021-01-11] MEDS: ENOXAPARIN INJ 40 MG/0.4 ML SYR SQ SCH ×2 (08:35→21:08)
[2021-01-11] MEDS: ESCITALOPRAM OXALATE 20 MG TAB PO SCH (08:35)
[2021-01-11] MEDS: carvediloL 12.5 MG TAB PO SCH ×2 (08:35→21:07)
[2021-01-11] MEDS: TOPIRAMATE 25 MG TAB PO SCH ×2 (08:35→21:06)
[2021-01-11] MEDS: DICYCLOMINE HCL 10 MG CAP PO PRN (08:36)
[2021-01-11] MEDS: LOPERAMIDE HCL 2 MG CAP PO PRN (08:36)
[2021-01-11] MEDS: TOPIRAMATE 50 MG TAB PO SCH ×2 (08:36→21:07)
[2021-01-11] MEDS: INSULIN GLARGINE SOLOSTAR 100 UNITS/ML 3 ML PEN SC SCH (08:39)
[2021-01-11] MEDS: INSULIN ASPART 100 UNITS/ML 3 ML PEN SC SCH ×4 (08:40→21:15)
[2021-01-11] MEDS ORDERED: POTASSIUM CHLORIDE CRTAB 20 MEQ TABCR PO STA (10:31)
--- NOTE | 2021-01-11 10:32 | Hospitalist Progress Note ---
Date of Service January 11, 2021 Assessment & Plan (1) Colitis: (2) Diarrhea: (3) Vomiting: (4) Acute hyperglycemia: This is a 45-year-old male who presents with nausea, vomiting, diarrhea and hyperglycemia. Colitis found on abd. CT. 1. Nausea, vomiting, diarrhea, nonspecific colitis on the CAT scan, possible infectious gastroenteritis. (Patient's colleagues reported similar symptoms). SARS-CoV-2 negative. Clostridium difficile - negative Stool cultures - pending. Cont. IV fluids, clear liquid diet now advanced to regular diet GI consulted -appreciate their input 2. Hyperglycemia, anion gap is 15. No acidosis. Received IV Insulin in the ER. We will hold his home medication. Start Lantus and insulin sliding scale while inpt Glycemic pharmacy consult. Monitor the blood sugars. Current Hgb A1c above 15% ems educator consulted Plan to start insulin on discharge. Pt is in agreement. 3. Acute kidney injury. Creatinine 1.4, baseline creatinine 0.8. Holding his diuretics and lisinopril. Getting fluids. Creatinine now normalized resolved 4. Hyponatremia, mostly pseudohyponatremia from elevated sugars. Now sodium wnl as blood glucose level improved Resolved 5. Obstructive sleep apnea. CPAP at bedtime. 6. Chronic diastolic and systolic congestive heart failure, ejection fraction 35-40% EF on echo done in June 2019. EF 50% on echo in 07/2020 Holding his Lasix, getting fluids. Monitor for any volume overload. Echo repeated while inpatient, left ventricle appears to be normal size with normal systolic function and estimated LVEF around 50 to 55%. RV systolic function is normal. Left atrial size is normal. Right atrial size is normal. The prosthetic aortic valve is not well visualized. The gradients for the prosthetic valve are elevated on the study but may be related to technique. If clinically indicated the study can be repeated in the future. 7. Hypertension. Continue his Coreg. We will hold Lasix and lisinopril and spironolactone. Monitor the blood pressure. 8. Vitiligo. Continue his home topical creams. (His home topical creams are not available in our pharmacy, contacted patient's enoc, who is able to bring them in however she reports that patient has not been using them for some time). 9. Hyperlipidemia. Continue statin. 10. History of CAD. Continue his aspirin, statin and beta-betty. 11. Depression. Continue his Lexapro. 12. History of migraine, on Topamax. 13. s/p AVR bioprosthetic valve. Question of clot on prosthetic valve supposed to be on Coumadin. Stopped taking Coumadin. Will consult cardiology for further recommendations as no clot seen on echo from 07/2020. Since this patient was lost to follow-up, check echo during this admission, and will discuss with cardiology. INR 1.0 on admission. Patient has warfarin 5 mg tablets at home but he is not taking them. Warfarin 5 mg daily started while inpatient. 14. DVT prophylaxis, SCDs, Lovenox, also now started warfarin 15. Disposition: Admit to med tele. Expect discharge home and follow with family doctor. Admission and Anticipated Discharge Date Admission Date: January 08, 2021 Subjective Pt seen in follow up of dehydration, diarrhea/ colitis, hyperglycemia- Uncontrolled diabetes mellitus type II Feeling better today, However reports having 6 bowel movements yesterday and 3 overnight. He feels it's slowing down. No fevers or chills Continues to have some abdominal discomfort Hgb A1c above 15% - ems educator contacted plan to start insulin on discharge Review of Systems Review of Systems: All systems reviewed & are unremarkable except as noted in HPI & below Constitutional: no fever and no chills Respiratory: no cough and no dyspnea Cardiovascular: no chest pain and no palpitations Gastrointestinal: + abdominal pain and + diarrhea/loose stools; no nausea and no vomiting Physical Exam Physical Exam: GENERAL: Obese male sitting up in bed, in NAD HEENT: NC/AT, Pupils equal, round, and reactive to light. Oral mucosa is dry. NECK: No JVD, no neck masses seen. CARDIOVASCULAR: S1, S2, regular rate and rhythm, no murmur, no gallop. RESPIRATORY SYSTEM: Normal AP diameter. No accessory muscle use. No wheezing, no crackles. ABDOMEN: Soft, bowel sounds present. Mild abdominal diffuse discomfort, mostly in lower quadrants. No guarding, no rigidity. No distention. NEURO: Alert and oriented answering questions appropriately, moves extremities spontaneously EXTREMITIES: No edema, no erythema. SKIN: White/ depigmented spot seen on the R face c/w vitiligo. Results & Data Results & Data ([facility]) Vital Signs (Past 12 Hours) Vital Signs Temp Pulse Pulse Resp BP BP Pulse Ox 01/11/21 07:33 36.5 C 70 16 111/78 96 01/11/21 07:03 59 L 01/11/21 04:35 36.6 C 74 18 126/87 96 01/11/21 02:11 67 16 97 01/11/21 00:38 76 01/10/21 23:00 36.5 C 82 18 133/87 97 Laboratory Results 01/11/21 01/11/21 01/11/21 Range/Units 07:24 06:00 06:00 WBC (4.8-10.8) K/uL RBC (4.7-6.1) M/uL Hgb (14.0-18.0) g/dL Hct (42-52) % MCV (80-100) fL MCH (25-34) pg MCHC (32-36) g/dL RDW Std Deviation (36.4-46.3) fL RDW Coeff of Tyron (11.5-14.5) % Plt Count (130-400) K/uL MPV (7.4-10.4) fL PT 11.9 (9.0-12.0) Seconds INR 1.2 H (0.9-1.1) Sodium 140 (136-145) mmol/L Potassium 3.6 D (3.5-5.1) mmol/L Chloride 110 H (98-107) mmol/L Carbon Dioxide 24 (21-32) mmol/L Anion Gap 6.0 (3-11) BUN 11 (7-18) mg/dl Creatinine 0.67 (0.6-1.4) mg/dl Est Cr Clr Drug Dosing 174.9 ml/min Est GFR ( Amer) 135.4 Est GFR (Non-Af Amer) 116.9 BUN/Creatinine Ratio 16.2 (10-20) Glucose 133 H (70-99) mg/dl POC Glucose 123 H (70-99) mg/dl Calcium 8.0 L (8.5-10.1) mg/dl Phosphorus 2.2 L (2.5-4.9) mg/dl Magnesium 1.8 (1.8-2.4) mg/dl 01/11/21 01/10/21 01/10/21 Range/Units 06:00 20:24 16:38 WBC 7.07 (4.8-10.8) K/uL RBC 4.87 (4.7-6.1) M/uL Hgb 15.7 (14.0-18.0) g/dL Hct 44.1 (42-52) % MCV 90.6 (80-100) fL MCH 32.2 (25-34) pg MCHC 35.6 (32-36) g/dL RDW Std Deviation 42.2 (36.4-46.3) fL RDW Coeff of Tyron 12.7 (11.5-14.5) % Plt Count 257 (130-400) K/uL MPV 10.2 (7.4-10.4) fL PT (9.0-12.0) Seconds INR (0.9-1.1) Sodium (136-145) mmol/L Potassium (3.5-5.1) mmol/L Chloride (98-107) mmol/L Carbon Dioxide (21-32) mmol/L Anion Gap (3-11) BUN (7-18) mg/dl Creatinine (0.6-1.4) mg/dl Est Cr Clr Drug Dosing ml/min Est GFR ( Amer) Est GFR (Non-Af Amer) BUN/Creatinine Ratio (10-20) Glucose (70-99) mg/dl POC Glucose 114 H 125 H (70-99) mg/dl Calcium (8.5-10.1) mg/dl Phosphorus (2.5-4.9) mg/dl Magnesium (1.8-2.4) mg/dl 01/10/21 Range/Units 11:33 WBC (4.8-10.8) K/uL RBC (4.7-6.1) M/uL Hgb (14.0-18.0) g/dL Hct (42-52) % MCV (80-100) fL MCH (25-34) pg MCHC (32-36) g/dL RDW Std Deviation (36.4-46.3) fL RDW Coeff of Tyron (11.5-14.5) % Plt Count (130-400) K/uL MPV (7.4-10.4) fL PT (9.0-12.0) Seconds INR (0.9-1.1) Sodium (136-145) mmol/L Potassium (3.5-5.1) mmol/L Chloride (98-107) mmol/L Carbon Dioxide (21-32) mmol/L Anion Gap (3-11) BUN (7-18) mg/dl Creatinine (0.6-1.4) mg/dl Est Cr Clr Drug Dosing ml/min Est GFR ( Amer) Est GFR (Non-Af Amer) BUN/Creatinine Ratio (10-20) Glucose (70-99) mg/dl POC Glucose 114 H (70-99) mg/dl Calcium (8.5-10.1) mg/dl Phosphorus (2.5-4.9) mg/dl Magnesium (1.8-2.4) mg/dl Medications Administered Current Inpatient Medications Acetaminophen (Acetaminophen 325 Mg Tab) 650 mg PO Q4H PRN PRN Reason: Pain or Fever Stop: 02/07/21 23:14 Albuterol (Albuterol Hfa 8 Gm Inhaler) 2 puffs INH QID PRN PRN Reason: Shortness Of Breath Or Wheezing Stop: 02/07/21 23:14 Aspirin (Aspirin 81 Mg Ectab) 81 mg PO HS AMANDA Stop: 02/08/21 20:59 Last Admin: 01/10/21 20:12 Dose: 81 mg Documented by: Atorvastatin Calcium (Atorvastatin 40 Mg Tab) 80 mg PO HS AMANDA Stop: 02/08/21 20:59 Last Admin: 01/10/21 20:00 Dose: 80 mg Documented by: Carvedilol (Carvedilol 12.5 Mg Tab) 12.5 mg PO BID AMANDA Stop: 02/08/21 08:59 Last Admin: 01/11/21 08:35 Dose: 12.5 mg Documented by: Cholestyramine Resin (Cholestyramine Light 4 Gm Pkt) 4 gm PO DAILY@1000 AMANDA Stop: 02/09/21 11:44 Last Admin: 01/10/21 12:22 Dose: 4 gm Documented by: Dextrose (Dextrose 50% 50 Ml Syringe) 25 - 50 ml IV UD PRN; Protocol PRN Reason: Hypoglycemia Protocol Stop: 02/07/21 23:44 Dicyclomine HCl (Dicyclomine Hcl 10 Mg Cap) 10 mg PO TID PRN PRN Reason: abdominal cramping Stop: 02/08/21 20:59 Last Admin: 01/11/21 08:36 Dose: 10 mg Documented by: Enoxaparin Sodium (Enoxaparin Inj 40 Mg/0.4 Ml Syr) 40 mg SQ Q12H AMANDA Stop: 02/08/21 08:59 Last Admin: 01/11/21 08:35 Dose: 40 mg Documented by: Escitalopram Oxalate (Escitalopram Oxalate 20 Mg Tab) 20 mg PO QAM AMANDA Stop: 02/08/21 08:59 Last Admin: 01/11/21 08:35 Dose: 20 mg Documented by: Glucagon (Glucagon For Inj 1 Mg Vial) 1 mg SQ UD PRN; Protocol PRN Reason: Hypoglycemia Protocol Stop: 02/07/21 23:44 Glucose (Glucose 40% Gel 15 Gm Tube) 15 - 30 gm PO UD PRN; Protocol PRN Reason: Hypoglycemia Protocol Stop: 02/07/21 23:44 Glucose (Glucose 10 Tabs/Tube) 4 - 8 tabs PO UD PRN; Protocol PRN Reason: Hypoglycemia Protocol Stop: 02/07/21 23:44 Sodium Chloride (Nss 1000ml) 1,000 mls @ 125 mls/hr IV .Q8H AMANDA Stop: 02/07/21 23:14 Last Admin: 01/11/21 02:28 Dose: 125 mls/hr Documented by: Acetaminophen (Ofirmev) 1,000 mg in 100 mls @ 400 mls/hr IV Q8H PRN PRN Reason: Pain Stop: 01/12/21 10:57 Promethazine HCl 6.25 mg/ (Sodium Chloride) 50.25 mls @ 201 mls/hr IV Q6H PRN PRN Reason: Nausea And Vomiting Stop: 02/08/21 10:59 Insulin Aspart (Insulin Aspart 100 Units/Ml 3 Ml Pen) 0 units SC ACHS [facility] Stop: 02/08/21 07:29 Last Admin: 01/11/21 08:40 Dose: 5 units Documented by: Insulin Glargine (Insulin Glargine Solostar 100 Units/Ml 3 Ml Pen) 0 units SC BID AMANDA; Protocol Stop: 02/08/21 08:59 Last Admin: 01/11/21 08:39 Dose: 8 units Documented by: Loperamide HCl (Loperamide Hcl 2 Mg Cap) 2 mg PO TID PRN PRN Reason: diarrhea Stop: 02/09/21 10:22 Last Admin: 01/11/21 08:36 Dose: 2 mg Documented by: Miscellaneous (Dovonox~Order Awaiting Action) 1 ea N/A QS AMANDA Stop: 02/08/21 00:00 Last Admin: 01/09/21 08:53 Dose: Not Given Documented by: Miscellaneous (Protopic~Order Awaiting Action) 1 ea N/A QS AMANDA Stop: 02/08/21 00:00 Last Admin: 01/09/21 10:21 Dose: Not Given Documented by: Miscellaneous (Carbohydrates For Hypoglycemia ) 15 - 30 gm PO UD PRN PRN Reason: Hypoglycemia Treatment Stop: 02/07/21 23:44 Miscellaneous Information (Pharmacy Glycemic Mgmt Consult) 1 ea N/A UD PRN PRN Reason: Consult Stop: 02/07/21 23:23 Morphine Sulfate (Morphine Sulfate 4 Mg/Ml 1 Ml Carp\Vial) 3 mg IV Q3H PRN PRN Reason: Pain Stop: 01/22/21 23:14 Last Admin: 01/10/21 16:31 Dose: 3 mg Documented by: Nitroglycerin (Nitroglycerin Sl 0.4 Mg/Tab Tab) 0.4 mg SL UD PRN PRN Reason: Chest Pain Stop: 02/07/21 23:14 Ondansetron HCl (Ondansetron Inj 2 Mg/Ml 2 Ml Vial) 4 mg IV Q6H PRN PRN Reason: Nausea Stop: 02/07/21 23:14 Potassium Chloride (Potassium Chloride Crtab 20 Meq Tabcr) 20 meq PO NOW STA Stop: 01/11/21 10:32 Topiramate (Topiramate 25 Mg Tab) 25 mg PO BID AMANDA Stop: 02/08/21 08:59 Last Admin: 01/11/21 08:35 Dose: 25 mg Documented by: Topiramate (Topiramate 50 Mg Tab) 50 mg PO BID AMANDA Stop: 02/08/21 08:59 Last Admin: 01/11/21 08:36 Dose: 50 mg Documented by: Warfarin Sodium (Warfarin Sod 5 Mg Tab) 5 mg PO DAILY@1600 [facility] Stop: 02/08/21 15:59 Last Admin: 01/10/21 16:32 Dose: 5 mg Documented by: (1) Diarrhea Diarrhea type: presumed infectious Qualified Code(s): R19.7 - Diarrhea, unspecified (2) Vomiting Nausea presence: unspecified Vomiting Intractability: unspecified Vomiting type: unspecified Qualified Code(s): R11.10 - Vomiting, unspecified
[2021-01-11 10:46] LABS: iSTAT Creatinine 1.2 mg/dl (0.6-1.3); iSTAT Potassium 4.3 mmol/L (3.3-5.0)
[2021-01-11 10:55] LABS: iSTAT Hemoglobin 19.7 g/dl (14.0-18.0); iSTAT Ionized Calcium 1.16 mmol/l (1.12-1.32)
[2021-01-11] MEDS: CHOLESTYRAMINE LIGHT 4 GM PKT PO SCH (10:56)
--- NOTE | 2021-01-11 13:28 | Pharmacy Report ---
Pharmacy Glycemic Short Note 2 - Date of Service January 11, 2021 - Glycemic Short BSG Results (Last 24 hours): 01/08/21 01/10/21 01/10/21 18:50 16:38 20:24 Glucose POC Glucose 125 H 114 H POC Glucose (other) 393 H* 01/11/21 01/11/21 01/11/21 06:00 07:24 11:27 Glucose 133 H POC Glucose 123 H 175 H POC Glucose (other) OUTPATIENT ANTIDIABETIC REGIMEN: * Jardiance 25 mg daily * glipizide 5 mg BID * metformin 1 gm PO BID ASSESSMENT: 01/11: * Patient received total of 30 units of insulin yesterday, of which 18 units were basal insulin * Fasting BSG 123 mg/dL - will continue with scale for basal. * Had loosened CF/CR yesterday as very tight control. Opt for looser parameters as patient with very elevated A1c. Continue same CF/CR 01/10: * Patient received total of 43 units of insulin yesterday, of which 25 units were basal insulin * Fasting BSG 81 mg/dL - plan to scale back with basal insulin today ~30% * BSGs yesterday trending downward, plan to loosen CF/CR today PLAN FOR INPATIENT GLYCEMIC CONTROL: * Hold outpatient oral diabetes medications * Basal insulin * Received 8 units this AM based upon BSG scale * Will dose with 10 units at dinner time --> plan to change to once daily dosing for easier transition to outpatient setting * Bolus insulin * NovoLog per scale ACHS or Q6hrs while NPO * Goal Range: Low 110 mg/dL - High 140 mg/dL * Correction Factor: 25 mg/dL/unit * Nutritional / Prandial insulin per carb ratio of 1 unit per 10 grams CHO consumed PLAN FOR DISCHARGE: * 15.6 % - A1c is greater than or equal to 10%, guidelines recommend triple therapy with metformin + basal insulin + prandial insulin or GLP-1 * DM educator met with patient and he reports losing ~60 lbs in last 1-2 months thru dietary changes including eliminating sugar sweetened drinks and eating healthier. * Patient currently only on oral medications at home for diabetes management. Could consider addition of basal insulin on discharge. Will continue to follow to determine needs. Per notes, patient agreeable to once daily basal insulin
[2021-01-11] MEDS ORDERED: Nursing to Pharmacy Communication SCH (13:45)
[2021-01-11] MEDS: WARFARIN SOD 5 MG TAB PO SCH (16:20)
[2021-01-11] MEDS ORDERED: INSULIN GLARGINE SOLOSTAR 100 UNITS/ML 3 ML PEN SC ONE (17:00)
[2021-01-11] MEDS: ASPIRIN 81 MG ECTAB PO SCH (21:06)
[2021-01-11] MEDS: ATORVASTATIN 40 MG TAB PO SCH (21:07)
[2021-01-11 22:21] LABS: CMV DNA Qnt Real Time PCR <200 IU/mL (<200); CMV DNA Quant PCR <2.30 log IU/mL (<2.30)
[2021-01-12 06:27] LABS: Hematocrit (blood only) 45.2 % (42-52); Hemoglobin 15.9 g/dL (14.0-18.0); Mean Corpuscular Hemoglobin 31.9 pg (25-34); Mean Corpuscular Hgb Conc 35.2 g/dL (32-36); Mean Corpuscular Volume 90.6 fL (80-100); Mean Platelet Volume 10.9 fL (7.4-10.4); Platelet Count 284 K/uL (130-400); RDW Coefficient of Variation 12.7 % (11.5-14.5); RDW Standard Deviation 42.3 fL (36.4-46.3); Red Blood Count 4.99 M/uL (4.7-6.1); White Blood Count 8.28 K/uL (4.8-10.8)
[2021-01-12 06:51] LABS: INR 1.3 (0.9-1.1); Prothrombin Time 12.5 Seconds (9.0-12.0)
[2021-01-12 07:00] LABS: BUN Creatinine Ratio 15.7 (10-20); Calcium 8.2 mg/dl (8.5-10.1); Creatinine Clr Calc Pharmacy 151.2 ml/min; Est GFR (African American) 127.9; Est GFR (Non-African American) 110.4; Potassium 3.7 mmol/L (3.5-5.1)
[2021-01-12] MEDS: carvediloL 12.5 MG TAB PO SCH (08:54)
[2021-01-12] MEDS: TOPIRAMATE 25 MG TAB PO SCH (08:55)
[2021-01-12] MEDS: ENOXAPARIN INJ 40 MG/0.4 ML SYR SQ SCH (08:55)
[2021-01-12] MEDS: TOPIRAMATE 50 MG TAB PO SCH (08:55)
[2021-01-12] MEDS: ESCITALOPRAM OXALATE 20 MG TAB PO SCH (08:55)
[2021-01-12] MEDS: INSULIN ASPART 100 UNITS/ML 3 ML PEN SC SCH ×2 (08:59→12:02)
[2021-01-12] MEDS ORDERED: INSULIN GLARGINE SOLOSTAR 100 UNITS/ML 3 ML PEN SC SCH (09:00)
[2021-01-12] MEDS: CHOLESTYRAMINE LIGHT 4 GM PKT PO SCH (10:25)
--- NOTE | 2021-01-12 10:53 | Pharmacy Report ---
Pharmacy Glycemic Short Note 2 - Date of Service January 12, 2021 - Glycemic Short BSG Results (Last 24 hours): 01/08/21 01/11/21 01/11/21 18:50 11:27 16:27 Glucose POC Glucose 175 H 129 H POC Glucose (other) 393 H* 01/11/21 01/12/21 01/12/21 19:59 05:46 07:23 Glucose 187 H POC Glucose 192 H 172 H POC Glucose (other) OUTPATIENT ANTIDIABETIC REGIMEN: * Jardiance 25 mg daily * glipizide 5 mg BID * metformin 1 gm PO BID ASSESSMENT: 01/12 * Pt has received 40 units of insulin over the past 24hrs * 18 units of basal with Lantus * 22 units of bolus with NovoLog * BSGs [phone] mg/dl * AM fasting BSG is slightly elevated at 172 mg/dl. Will increase Lantus from 18 units to 20 units split 10 units BID * Post-prandial BSGs are slightly elevated. Will tighten CR but loosen CF (since increasing basal insulin) for better post-prandial control 01/11: * Patient received total of 30 units of insulin yesterday, of which 18 units were basal insulin * Fasting BSG 123 mg/dL - will continue with scale for basal. * Had loosened CF/CR yesterday as very tight control. Opt for looser parameters as patient with very elevated A1c. Continue same CF/CR 01/10: * Patient received total of 43 units of insulin yesterday, of which 25 units were basal insulin * Fasting BSG 81 mg/dL - plan to scale back with basal insulin today ~30% * BSGs yesterday trending downward, plan to loosen CF/CR today PLAN FOR INPATIENT GLYCEMIC CONTROL: * Hold outpatient oral diabetes medications * Basal insulin * Lantus 10 units SQ BID * Bolus insulin * NovoLog per scale ACHS or Q6hrs while NPO * Goal Range: Low 110 mg/dL - High 140 mg/dL * Correction Factor: 35 mg/dL/unit * Nutritional / Prandial insulin per carb ratio of 1 unit per 8 grams CHO consumed PLAN FOR DISCHARGE: * 15.6 % - A1c is greater than or equal to 10%, guidelines recommend triple therapy with metformin + basal insulin + prandial insulin or GLP-1 * DM educator met with patient and he reports losing ~60 lbs in last 1-2 months thru dietary changes including eliminating sugar sweetened drinks and eating healthier. * Patient currently only on oral medications at home for diabetes management. Basal insulin needed discharge. Will continue to follow to determine needs. Per notes, patient agreeable to once daily basal insulin
--- NOTE | 2021-01-12 11:55 | Hospitalist Progress Note ---
Date of Service January 12, 2021 Assessment & Plan (1) Colitis: (2) Diarrhea: (3) Vomiting: (4) Acute hyperglycemia: Patient is a 45 yr male who presents with nausea, vomiting, diarrhea and hyperglycemia. Colitis found on abd. CT. Nausea, vomiting, diarrhea Secondary to Colitis/infectious gastroenteritis CT ABD: No bowel obstruction or definite bowel wall thickening. Normal appendix. There are a few scattered colonic air-fluid levels which may reflect underlying diarrheal illness. Cholecystectomy. SARS-CoV-2 negative. Clostridium difficile - negative Stool cultures - Negative Received IV fluids Tolerating regular diet Appreciate GI input Continue cholestyramine, Imodium as per GI Needs colonoscopy in 4 to 6 weeks as outpatient Uncontrolled diabetes mellitus II HbA1c 15.6 Continue insulin therapy while hospitalized Plan to discharge on basal insulin Accounts Payable Supervisor consulted Monitor BGs Acute kidney injury Renal function back to baseline Received IV fluids Home diuretics, lisinopril held during hospitalization Monitor renal function Hyponatremia Likely pseudohyponatremia from elevated sugars. Sodium levels normalized Monitor Obstructive sleep apnea. CPAP at bedtime Chronic diastolic and systolic congestive heart failure Ejection fraction 35-40% EF on echo done in June 2019. EF 50% on echo in 07/2020 Resume diuretics as able Monitor volume status ECHO Updated on 01/10/21: EF: 50 to 55%. The prosthetic aortic valve is not well visualized. The gradients for prosthetic valve are elevated on the study but may be related to technique. Appreciate cardiology input Hypertension. Continue Coreg Resume lisinopril at lower dose. Returning home blood pressure Vitiligo Continue his home topical creams Hyperlipidemia Continue statin. H/O CAD Continue his aspirin, statin and beta-betty. Depression Continue Lexapro H/O Migraine On Topamax. S/P AVR bioprosthetic valve. ? Thrombus on prosthetic valve On Cumadin. Continue coumadin Monitor INR Need for long-term anticoagulation by Cardiology as outpatient Needs follow-up with Coumadin clinic upon discharge DVT Px: SCDs, Warfarin Disposition home Admission and Anticipated Discharge Date Admission Date: January 08, 2021 Subjective Patient is seen and examined at bedside States feeling much better today Denies nausea, vomiting, diarrhea Has mild abdominal discomfort which is improving Also denies chest pain, shortness breath, dizziness Offers no other complaints Eager to get discharged Review of Systems Review of Systems: All systems reviewed & are unremarkable except as noted in HPI & below Physical Exam Physical Exam: Physical Exam: Vitals signs as noted above General Appearance:Morbidly Obese, no apparent distress Head: normocephalic, Atraumatic Eyes: normal inspection, EOMI Neck: supple, Trachea midline Respiratory/Chest: Normal breath sounds, CTA Cardiovascular: S1, S2, No murmur Abdomen/GI:Soft, Mild tender, Bowel sounds present Extremities/Musculoskelatal:normal inspection, no edema Neurologic/Psych:AAOX3, grossly no focal neurological deficits Skin: normal color, warm Results & Data Results & Data ([facility]) Vital Signs (Past 12 Hours) Vital Signs Temp Pulse Pulse Resp BP BP Pulse Ox 01/12/21 11:29 36.7 C 60 20 98/67 L 91 01/12/21 10:30 36.3 C L 64 20 111/73 114/68 97 01/12/21 07:33 36.3 C L 64 20 111/73 97 01/12/21 07:25 71 01/12/21 03:28 36.5 C 70 20 114/68 96 Laboratory Results Short CBC 01/12/21 Range/Units 05:46 WBC 8.28 (4.8-10.8) K/uL Hgb 15.9 (14.0-18.0) g/dL Hct 45.2 (42-52) % Plt Count 284 (130-400) K/uL BMP 01/12/21 05:46 Sodium 141 Potassium 3.7 Chloride 112 H Carbon Dioxide 22 BUN 12 Creatinine 0.77 Glucose 187 H Calcium 8.2 L (1) Diarrhea Diarrhea type: presumed infectious Qualified Code(s): R19.7 - Diarrhea, unspecified (2) Vomiting Nausea presence: unspecified Vomiting Intractability: unspecified Vomiting type: unspecified Qualified Code(s): R11.10 - Vomiting, unspecified
--- NOTE | 2021-01-12 12:11 | Discharge Summary ---
Date of Service January 12, 2021 Admission HPI Per Admitting Provider CHIEF COMPLAINT: Nausea, vomiting and diarrhea. HISTORY OF PRESENT ILLNESS: This is a 45-year-old male with past medical history significant for type 2 diabetes, obstructive sleep apnea, on CPAP; chronic rhinitis, diastolic congestive heart failure, chronic systolic congestive heart failure, hypertension, dilated cardiomyopathy, obesity, cholelithiasis, history of vitiligo, migraines, pterygium of eyes, status post AVR, presents with nausea, vomiting and diarrhea that is going on today and he also says his sugars running high yesterday and today in 500s; that is why he came into the ER. In the ER his hemodynamics are stable, but his sugars were running high at 380s. There is some slight anion gap. Bicarbonate is okay. Creatinine is 1.4. SARS-CoV-[address] abdomen preliminary report showing nonspecific colitis. The patient says he has some abdominal discomfort and also having several episodes of diarrhea, watery and also some nausea and vomiting. Nausea improved with medication in the ER. He is not able to eat anything and sugars running high, found difficult to control the sugars at home. Denies any chest pain, no shortness of breath. Complains of some cough since last few days. Denies any fever, chills. No loss of sense of smell or taste, not able to eat because of nausea, has some headache, some dizziness. No earache, no runny nose, no sore throat. He says he is micturating a lot. No swelling in the legs, no rash. Lives alone. He says he checks his sugars daily. Admission Exam Per Admitting Provider PHYSICAL EXAMINATION: GENERAL: The patient is obese, not in acute distress. VITAL SIGNS: Temperature 36.7, pulse 90, respiratory rate 16, blood pressure 124/83, oxygen 98% room air. HEENT: Pupils equal, round, and reactive to light. Oral mucosa is dry. NECK: No JVD, no neck masses seen. CARDIOVASCULAR: S1, S2, regular rate and rhythm, no murmur, no gallop. RESPIRATORY SYSTEM: Normal AP diameter. No accessory muscle use. No wheezing, no crackles. ABDOMEN: Soft, bowel sounds present. Mild abdominal diffuse discomfort. No guarding, no rigidity. No distention. CENTRAL NERVOUS SYSTEM: Cranial nerves II-XII grossly intact, nonfocal. EXTREMITIES: No edema, no erythema. SKIN: White spots seen on the face. Principal Diagnosis Colitis, viral gastroenteritis Uncontrolled diabetes mellitus type 2 with hyperglycemia Acute kidney injury Discharge Data Allergies Allergy/AdvReac Type Severity Reaction Status Date / Time No Known Allergies Allergy Verified 01/08/21 21:59 Consultations 01/08/21 20:49 ED Decision to Admit Stat 01/08/21 23:15 Consult Case Management - Discharge Planning Routine 01/09/21 07:03 Consult Cardiology Routine 01/09/21 08:00 Consult Gastroenterology Routine Procedures Performed ECHO Updated on 01/10/21: EF: 50 to 55%. The prosthetic aortic valve is not well visualized. The gradients for prosthetic valve are elevated on the study but may be related to technique. CT ABD: No bowel obstruction or definite bowel wall thickening. Normal appendix. There are a few scattered colonic air-fluid levels which may reflect underlying diarrheal illness. Cholecystectomy. Ordered Studies 01/08/21 19:18 CT abd pelvis IV con only Urgent Diabetes Follow up Diabetes Follow-up Needed for HgbA1c >9% Hospital Course (1) Colitis: (2) Diarrhea: (3) Vomiting: (4) Acute hyperglycemia: Patient is a 45 yr male who presents with nausea, vomiting, diarrhea and hyperglycemia. Colitis found on abd. CT. Nausea, vomiting, diarrhea Secondary to Colitis/infectious gastroenteritis CT ABD: No bowel obstruction or definite bowel wall thickening. Normal appendix. There are a few scattered colonic air-fluid levels which may reflect underlying diarrheal illness. Cholecystectomy. SARS-CoV-2 negative. Clostridium difficile - negative Stool cultures - Negative Received IV fluids Tolerating regular diet Appreciate GI input Continue cholestyramine, Imodium as per GI Needs colonoscopy in 4 to 6 weeks as outpatient Uncontrolled diabetes mellitus II HbA1c 15.6 Continue insulin therapy while hospitalized Plan to discharge on basal insulin Supervisor Looping consulted Monitor BGs Acute kidney injury Renal function back to baseline Received IV fluids Home diuretics, lisinopril held during hospitalization Monitor renal function Hyponatremia Likely pseudohyponatremia from elevated sugars. Sodium levels normalized Monitor Obstructive sleep apnea. CPAP at bedtime Chronic diastolic and systolic congestive heart failure Ejection fraction 35-40% EF on echo done in June 2019. EF 50% on echo in 07/2020 Resume diuretics as able Monitor volume status ECHO Updated on 01/10/21: EF: 50 to 55%. The prosthetic aortic valve is not well visualized. The gradients for prosthetic valve are elevated on the study but may be related to technique. Appreciate cardiology input Hypertension. Continue Coreg Resume lisinopril at lower dose. Returning home blood pressure Vitiligo Continue his home topical creams Hyperlipidemia Continue statin. H/O CAD Continue his aspirin, statin and beta-betty. Depression Continue Lexapro H/O Migraine On Topamax. S/P AVR bioprosthetic valve. ? Thrombus on prosthetic valve On Cumadin. Continue coumadin Monitor INR Need for long-term anticoagulation by Cardiology as outpatient Needs follow-up with Coumadin clinic upon discharge DVT Px: SCDs, Warfarin Disposition home Total Time Total Time Spent Total Time Spent (In Minutes): 44 minutes Total Time Includes: Examination of the Patient, Discharge Planning, Medication Reconciliation, Communication With Other Providers and Other Discharge Plan Discharge Items Patient Disposition: Home - Self-Care Reason For Visit: ILLNESS Discharge Diagnosis: Colitis, viral gastroenteritis Uncontrolled diabetes mellitus type 2 with hyperglycemia Acute kidney injury Activity: Resume your previous activity Exercise/Sports: Gradually increase as tolerated Non-emergency contact: Primary Care Provider, Release Manager and Cherry Pitter Call non-emergency contact if: you have any medication questions, your symptoms worsen, your pain is not controlled, your pain is worsening, your pain is unusual for you, your pain is concerning for you and you have a fever Follow-up/Referrals: Gabriela Ayon DO [Primary Care Provider] - (Date & Time 01/17/2021 2:20 PM Provider Gabriela Ayon DO Department [facility] ) Diet: Carb Consistent or DM2 and Heart Healthy Ambulatory Orders: Prothrombin Time INR (Routine) Timeframe: 1 Day Location: Determined by Patient Ordered By: Michael French Attending Provider Instructions: Follow-up with your primary care physician Dr. Ayon on 01/17/2021 2:20 PM as scheduled Follow-up with your glass products inspector Dr. Espinoza as recommended by your glass products inspector Follow-up with your director radio for outpatient colonoscopy in 4 to 6 weeks Follow-up with Coumadin clinic--for monitoring PT/INR and adjustment of Coumadin dosing Your lisinopril dose is decreased to 10 mg daily given low blood pressure. Further adjustment as per your primary care physician. Your PT/INR is 1.3 today (01/12/21). Take 5 mg Coumadin today Get blood test (PT/INR) on01/13/21 and follow-up with Coumadin clinic for further adjustment of your Coumadin dosing. Need for long-term anticoagulation with Warfarin to be determined by Cardiology as outpatient Seek immediate medical attention if your symptoms reoccur or worsen Pending Studies at Discharge: No Stand-Alone Forms: [facility] [employer], Smoking Cessation Medications and DC Order Prescriptions: New dicyclomine 10 mg Capsule 10 mg PO TID PRN (Reason: Abdominal Cramping ) Qty: 30 RF: 0 warfarin 5 mg Tablet 5 mg PO UD Qty: 60 RF: 0 Cholestyramine Light 4 gram Powder In Packet 4 g PO DAILY@1000 Qty: 60 RF: 0 loperamide 2 mg Capsule 2 mg PO TID PRN (Reason: loose stool) Qty: 60 RF: 0 Lantus Solostar U-100 Insulin 100 unit/mL (3 mL) Insulin Pen 20 unit SC DAILY Qty: 15 RF: 0 warfarin 2.5 mg tablet 2.5 mg PO UD Qty: 30 RF: 0 Continued nitroglycerin [Nitrostat] 0.4 mg Tablet, Sublingual 0.4 mg sublingual PRN Qty: 1 RF: 0 atorvastatin [Lipitor] 80 mg Tablet 80 mg PO HS RF: 0 aspirin [Ecotrin Low Strength] 81 mg Tablet,Delayed Release (Dr/Ec) 81 mg PO HS RF: 0 calcipotriene [Dovonex] 0.005 % cream 1 applic topical BID RF: 0 furosemide [Lasix] 20 mg tablet 40 mg PO QAM RF: 0 glipizide [Glucotrol] 5 mg tablet 5 mg PO BID RF: 0 topiramate [Topamax] 50 mg Tablet 50 mg PO BID RF: 0 metformin [Fortamet] 1,000 mg Tablet Extended Release 24hr 1,000 mg PO BIDM RF: 0 carvedilol [Coreg] 12.5 mg tablet 12.5 mg PO BID RF: 0 spironolactone [Aldactone] 25 mg tablet 12.5 mg PO QAM RF: 0 tacrolimus [Protopic] 0.1 % Ointment 1 applic TOPICAL .Q2D/BID RF: 0 albuterol sulfate [Ventolin HFA] 90 mcg/actuation Hfa Aerosol Inhaler 2 puff INHALATION QID PRN (Reason: Shortness Of Breath Or Wheezing) RF: 0 escitalopram oxalate [Lexapro] 20 mg tablet 20 mg PO QAM RF: 0 Jardiance 25 mg tablet 25 mg PO DAILY RF: 0 topiramate [Topamax] 25 mg Tablet 25 mg PO BID RF: 0 Changed lisinopril [Zestril] 20 mg tablet 10 mg PO QAM Qty: 0 RF: 0 Discharge Orders: Discharge Order (Routine); Ordered 01/12/21 Ordered By: Michael Mora Admission Data Admit Date/Time: 01/08/21 21:45 Attending Provider: Michael Mora Admit Provider: Chavo Jean Primary Care Provider: Gabriela Ayon Other Providers: Chavo Jean ; Andreas Acosta ; Juve Espinoza Other Interventions: Discharge Summary Assessment (RN) Last Done: 01/12/21 10:30
== END 2021-01-12 12:50 | disposition home or self-care (01) | DRG 392 ==
LOC: ED 18:22 → 2N 21:45 → SUATTDRO 21:45 → 2N 23:03